=== PATIENT | male | born 1975 | race Caucasian/White ===

== ENCOUNTER 2018-06-17 03:21 | Inpatient (IN) | payer MEDICAID ==
[~2018-06-17] VITALS: Ht 165.1 cm; Wt 81.0 kg
[~2018-06-17 03:21] MED LIST: ACET325T33 PO; FOLI-49 PO; ONDA4TAB8 PO; PANT40TA3 PO; PROP20TA4 PO; THIA100T10 PO
[2018-06-17 03:37] VITALS: Ht 165.1 cm; Wt 81.0 kg
--- NOTE | 2018-06-17 03:38 | ERD ---
ER Documentation Chief Complaint Chief Complaint etoh HPI The patient is a 43-year-old male, presenting to the ER on the street because he has been drinking too much. He is awake, alert, able to answer question, denies any trauma, denies headache, neck pain, chest pain, abdominal pain, vomiting. He is homeless, smokes and drinks, denies illicit drug. He denies suicidal/homicidal ideation. Past medical/surgical history: None ROS All systems reviewed and are negative except as per history of present illness. Medications Home Meds No Active Prescriptions or Reported Meds Allergies Allergies: Coded Allergies: No Known Allergy (Unverified , 01/21/16) PMhx/Soc History of Surgery: No Anesthesia Reaction: No Hx Neurological Disorder: No Hx Respiratory Disorders: No Hx Cardiac Disorders: No Hx Psychiatric Problems: No Hx Miscellaneous Medical Probl: No Hx Alcohol Use: Yes Hx Tobacco Use: Yes Physical Exam Vitals Vital Signs Date Temp Pulse Resp B/P (MAP) Pulse Ox O2 O2 Flow FiO2 Time Delivery Rate 06/17/18 98.4 105 22 136/78 95 Room Air 03:40 (97) 06/17/18 98.4 104 136/78 95 03:37 (97) Physical Exam Const: No acute distress. Head: Atraumatic. Eyes: Normal Conjunctiva. ENT: Normal External Ears, Nose and Mouth. Neck: Full range of motion. No meningismus. Resp: Clear to auscultation bilaterally. Cardio: Regular rate and rhythm. Abd: Soft, non distended, normal bowel sounds, non tender. Skin: No petechiae or rashes. Back: No midline or flank tenderness. Ext: No cyanosis, or edema. Neur: Awake and alert. No focal deficit Psych: intoxicated Procedures/MDM MEDICAL MAKING DECISION: The patient is a 43-year-old male, presenting with acute alcohol abuse, is awake, alert. He will be resting the ER until he kush up to go in the morning The differential diagnoses considered include but are not limited to alcohol intoxication, dehydration, electrolyte imbalance, depression Departure Diagnosis: Primary Impression: Alcohol abuse Comments The patient's blood pressure was elevated (>120/80) but appears stable without evidence of hypertension emergency or urgency. The patient was counseled about the risks of hypertension and urged to pursue outpatient monitoring and therapy within a week with their primary care physician. I have provided a medical screening exam and evaluation. Referral to outpatient behavioral health for follow up is indicated and referrals were provided.] The patient is clinically stable for discharge. I have communicated after-visit instructions and plan to the patient. Because patient has been identified as without residence, the hospital policy and process for discharge requirements have been initiated by appropriate hospital staff. TORIBIO ORDOÑEZ MD Jun 17, 2018 03:38
[2018-06-17] MEDS ORDERED: SOD CHLORIDE 0.9% 1,000 ML IV STA (13:46)
[2018-06-17] MEDS ORDERED: ONDANSETRON 4 MG INJ IV STA (13:46)
[2018-06-17] MEDS ORDERED: LORAZEPAM 2 MG INJ IV ONE (14:00)
[2018-06-17] MEDS: SOD CHLORIDE 0.9% 1,000 ML IV SCH (15:17)
[2018-06-17] MEDS ORDERED: NACL 0.9% 3 ML SYG IV SCH (15:30)
[2018-06-17] MEDS ORDERED: MULTIVITAMINS 10 ML, THIAMINE 100 MG, FOLIC ACID 1 MG, MAGNESIUM SULFATE 2 GM in SOD CH... IV ONE (15:30)
[2018-06-17] MEDS ORDERED: ACETAMINOPHEN 325 MG TAB PO PRN (15:30)
[2018-06-17] MEDS ORDERED: ONDANSETRON 4 MG INJ IV PRN (15:30)
[2018-06-17] MEDS ORDERED: LORAZEPAM 2 MG INJ IV PRN ×2 (15:30)
--- NOTE | 2018-06-17 15:34 | EN ---
Date/Time of Note Date/Time of Note DATE: 06/17/18 TIME: 15:30 ER Progress Note This is a 43-year-old male with a known history of alcohol abuse. He had multiple previous emergency room visits. The patient been seen and evaluated by previous ER physician. He was subsequently waiting to be discharged upon clinical sobriety. However he was seen by the social insurance specialist and multiple nursing staff were concerned as the patient is very unsteady in his gait. I went to the bedside to evaluate the patient. The patient had severe asterixis and an unsteady gait. He had been in the emergency department for 12 hours. There was concern for possible delirium tremors at this time. The patient was tachycardic. At this time IV access was established. Ancillary laboratory work was obtained. The patient has transaminitis. The patient is thrombocytic panic with a platelet count of 15,000. Due to his thrombus cytopenia and history of alcohol abuse I do feel is necessary to obtain a CT scan of the patient's head which showed no intracerebral hemorrhage mass-effect or midline shift. The pat ient was given IV Ativan. He was also given a banana bag folic acid thiamine and multivitamin. I do not feel safe for the patient to be discharged at this time given that high risk of impending delirium tremors. Therefore Dr. Tinajero will be the admitting physician the patient will go to the telemetry service. Constitutional:Well-developed. Disheveled. HEENT:Normocephalic. Nasal septal hematoma. No hemotympanum. Atraumatic.Pupils were equal round reactive to light. Moist mucous membranes.No tonsillar exudates. Neck: No nuchal rigidity. No lymphadenopathy. No posterior cervical spine tenderness or step-offs. Respiratory: Not using accessory muscles of respiration.Lungs were clear to auscultation bilaterally. No rhonchi. No rales. No wheezing. Cardiovascular: Regular rate regular rhythm.No murmurs. No rubs were appreciated.S1, S2 normal. Distal pulses are palpable 2+ bilaterally. GI: Abdomen was soft. Nontender. Non Distended. No pulsatile abdominal masses or bruits. No rebound. No guarding. Bowel sounds were present and normal. Muscle skeletal: Full range of motion of both the upper and lower extremities bilaterally.Normal muscle tone.No assymetrical calf tenderness or swelling. Skin: No petechia, no purpura. No lesions on the palms or the soles of the feet. No maculopapular rash. NEURO: Patient was alert, awake, orientated x3.No facial droop. Unsteady gait. Asterixis.Speech had regular rate and rhythm. No focal neurological deficits. Overall clinical impression: 1. Toxic encephalopathy 2. Alcohol withdrawal AQUILINO DENT MD Jun 17, 2018 15:34
[2018-06-17] MEDS ORDERED: SOD CHLORIDE 0.9% 250 ML IV* ONE (15:46)
--- NOTE | 2018-06-17 15:48 | HP ---
Date/Time of Note Date/Time of Note DATE: 06/17/18 TIME: 15:48 Assessment/Plan VTE Prophylaxis Pharmacological prophylaxis: other Lines/Catheters IV [facility] Peripheral IV Assessment/Plan Hospital Course Patient is a male with past medical history significant for multiple admissions due to alcohol intoxication, cirrhosis, esophageal varices and chronic lower extremity weakness and debility as well as pancytopenia due to al coholism who presents to [facility] after being found intoxicated and on the floor by EMS. Patient presents exact the same as his previous admissions, patient is currently very sleepy but arousable. Patient received multiple doses of Ativan due to witnessed symptoms of DT. Patient currently when aroused does not complain of any acute issues, however when you do ask that he has abdominal pain patient states that he does have some very little abdominal pain. Patient is still markedly intoxicated after a considerable amount in the ED and will be admitted for alcohol withdrawal symptoms. Patient currently denies all symptoms however this is difficult to get a true HPI due to patient being very sleepy due to Ativan. Objective Physical exam General: Patient is laying in bed and answers questions appropriately when awoken Mentation: Patient is lethargic but arousable and mildly oriented Head: Normocephalic atraumatic Eyes: EOMI, pupils reactive to light Neck: Supple, nontender, midline Respiratory: Clear to auscultation bilaterally Cardiovascular: regular rate, no obvious murmurs Gastrointestinal: Minimally tender to palpation, bowel sounds heard. Neurological: Moves all extremities spontaneously Skin: No new skin lesions Assessment and plan Acute alcohol intoxication and withdrawal -Patient has multiple counts at this hospital, this account does not partic ularly show his admission, however patient has been admitted multiple times in the past -Admission for DTs -Ativan as needed -Scheduled Ativan for now, when able to tolerate p.o. we will start Librium -IV fluid with banana bag Pancreatitis -Very mild, patient states he does have abdominal pain -N.p.o. -IV fluid -Patient appears to say yes to any kind of complaint he has, I doubt true acute pancreatitis, elevated lipase is likely secondary to chronic pancreatitis if anything, due to his alcoholism Pancytopenia -Baseline for patient -Based on other count patient has a history of esophageal varices and GI bleed -Patient was seen by hematology last year, it appears that patient has chronic thrombocytopenia and there is usually a drop in platelets after every alcohol binge where he gets admitted. -We will transfuse a unit of platelets due to history of esophageal variceal bleed., no GI bleed at this time Chronic debility and lower extremity weakness -Chronic, likely at baseline, patient not able to ambulate when attempted to be discharged by ED physician, this is baseline for patient -PT OT once patient is less intoxicated Alcoholism -Even after 12 hours in the ED patient's alcohol level is 0.25 alcohol content which is more than 3 times the legal limit. -Managing patient for withdrawal symptoms -Scheduled Ativan -As needed Ativan as well Alcoholic liver cirrhosis history with with grade 3 or 4 esophageal varices -Patient does not appear to be on any medication as he is homeless and noncompliant -We will initiate oral Lasix and spironolactone treatment once patient able to tolerate p.o. -PPI daily -Patient has been admitted multiple times, however is noncompliant with med ications every single time, will discuss with patient if he will even take medications when he is more awake. Disposition -Inpatient for acute alcohol intoxication and DT. Pending 1 unit of platelets. Result Diagram: 06/17/18 1355 06/17/18 1355 Results 24hrs Laboratory Tests Test 06/17/18 13:55 White Blood Count 2.1 L Red Blood Count 4.59 L Hemoglobin 11.4 L Hematocrit 36.0 L Mean Corpuscular Volume 78.4 L Mean Corpuscular Hemoglobin 24.8 L Mean Corpuscular Hemoglobin Concent 31.7 L Red Cell Distribution Width 19.3 H Platelet Count 15 *L Mean Platelet Volume Immature Granulocytes % 0.500 H Neutrophils % Segmented Neutrophils % (Manual) 62 Lymphocytes % Lymphocytes % (Manual) 30 Reactive Lymphocytes % (Manual) 4 H Monocytes % Monocytes % (Manual) 4 Eosinophils % Basophils % Nucleated Red Blood Cells % 1 H Immature Granulocytes # 0.010 Neutrophils # Lymphocytes (Manual) 0.6 L Lymphocytes # Reactive Lymphocytes # 0.0 Monocytes # Monocytes # (Manual) 0.0 L Eosinophils # Basophils # Nucleated Red Blood Cells # Platelet Estimate SIG DECREASED Giant Platelets 3 H Platelet Morphology Comment @See below Poikilocytosis 2+ Anisocytosis 1+ Microcytosis 1+ Sodium Level 143 Potassium Level 3.7 Chloride Level 109 Carbon Dioxide Level 23 Anion Gap 11 Blood Urea Nitrogen 8 Creatinine 0.46 L Est Glomerular Filtrat Rate mL/min > 60 Glucose Level 107 Calcium Level 7.6 L Total Bilirubin 1.4 H Direct Bilirubin 0.00 Indirect Bilirubin 1.4 H Aspartate Amino Transf (AST/SGOT) 273 H Alanine Aminotransferase (ALT/SGPT) 103 H Alkaline Phosphatase 278 H Troponin I < 0.012 Total Protein 8.1 Albumin 3.4 Globulin 4.70 H Albumin/Globulin Ratio 0.72 Lipase 304 H Ethyl Alcohol Level 251.0 H HPI/ROS Admit Date/Time Admit Date/Time PMH/Family/Social Past Medical History Medications Current Medications Multivitamins 10 ml/Thiamine HCl 100 mg/Folic Acid 1 mg/Magnesium Sulfate 2 gm/ Sodium Chloride 1,000 ml @ 500 mls/hr Q2H ONCE IV ; Start 06/17/18 at 15:30; Stop 06/17/18 at 17:29 Ondansetron HCl (Zofran Inj) 4 mg ER BRIDGE PRN IV NAUSEA/VOMITING; Start 06/17/18 at 15:30; Stop 06/18/18 at 15:29 Acetaminophen (Tylenol Tab) 650 mg ER BRIDGE PRN PO .MILD PAIN 1-3 OR TEMP; Start 06/17/18 at 15:30; Stop 06/18/18 at 15:29 Sodium Chloride 1,000 ml @ 100 mls/hr Q10H IV ; Start 06/17/18 at 15:17 IV Flush (NS 3 ml) 3 ml PER PROTOCOL IV ; Start 06/17/18 at 15:30 Lorazepam (Ativan) 0.5 mg Q6H PRN IV .ANXIETY; Start 06/17/18 at 15:30 Multivitamins 10 ml/Thiamine HCl 100 mg/Folic Acid 1 mg/Sodium Chloride 1,011.2 ml @ 125 mls/ hr DAILY@09 IVPB ; Start 06/18/18 at 09:00 Lorazepam (Ativan) 2 mg Q10MIN PRN IV seizure; Start 06/17/18 at 15:30 Morphine Sulfate (morphine) 1 mg Q4H PRN IV SEVERE PAIN LEVEL 7-10; Start at 16:00 Pantoprazole (Protonix Iv) 40 mg DAILY@06 IV ; Start 06/18/18 at 06:00 Lorazepam (Ativan) 1 mg Q6H IV ; Start 06/17/18 at 16:00 Coded Allergies: No Known Allergy (Unverified , 01/21/16) Social History Smoking Status: Current every day smoker Exam/Review of Systems Vital Signs Vitals Vital Signs Date Temp Pulse Resp B/P (MAP) Pulse Ox O2 O2 Flow FiO2 Time Delivery Rate 06/17/18 98 22 102/73 98 Room Air 10:27 (83) 06/17/18 98.4 03:40 FARHAN CORRAL Jun 17, 2018 15:48
[2018-06-17 16:35] VITALS: PULSE 93
[2018-06-17 16:36] VITALS: BP 132/73; PULSE 96; RESP 20
[2018-06-17] MEDS: LORAZEPAM 2 MG INJ IV SCH ×2 (17:55→22:00)
[2018-06-17 20:00] VITALS: BP 134/75; PULSE 104; PULSE 109; RESP 20
[2018-06-17] MEDS ORDERED: CHLORDIAZEPOXIDE 25 MG CAP PO SCH (21:00)
[2018-06-18] VITALS (12 sets, daily range): BP systolic 126–173; BP diastolic 67–80; PULSE 94–114; RESP 17–20
[2018-06-18] MEDS: SOD CHLORIDE 0.9% 1,000 ML IV SCH ×3 (01:22→21:22)
[2018-06-18] MEDS: LORAZEPAM 2 MG INJ IV SCH ×4 (04:00→22:00)
[2018-06-18] MEDS ORDERED: ACETAMINOPHEN 500 MG TAB PO ONE (04:34)
[2018-06-18] MEDS ORDERED: PANTOPRAZOLE 40 MG INJ IV SCH (06:00)
[2018-06-18] MEDS ORDERED: PANTOPRAZOLE (EC) 40 MG TAB PO SCH (06:00)
[2018-06-18] MEDS ORDERED: PHYTONADIONE 10 MG/ML INJ SC ONE (10:00)
[2018-06-18] MEDS: CEFTRIAXONE 1 GM/50 ML (PMX) 50 ML IVPB SCH (10:08)
[2018-06-18] MEDS: MULTIVITAMINS 10 ML, THIAMINE 100 MG, FOLIC ACID 1 MG in SOD CHLORIDE 0.9% 1,000 ML IVPB SCH (10:58)
[2018-06-18] MEDS: PANTOPRAZOLE IV 80 MG in SOD CHLORIDE 0.9% 100 ML IV SCH ×2 (11:00→21:02)
[2018-06-18] MEDS: OCTREOTIDE 1 MG in DEXTROSE 5% 95 ML IV SCH (11:04)
[2018-06-18] MEDS: ONDANSETRON 4 MG INJ IV PRN (12:10)
[2018-06-18] MEDS ORDERED: LABETALOL HCL 20MG INJ IV PRN (12:30)
--- NOTE | 2018-06-18 13:50 | PN ---
Date/Time of Note Date/Time of Note DATE: 06/18/18 TIME: 13:46 Objective Vitals Vital Signs Date Temp Pulse Resp B/P (MAP) Pulse Ox O2 O2 Flow FiO2 Time Delivery Rate 06/18/18 100 12:32 06/18/18 98.6 19 173/72 98 11:44 (105) 06/17/18 Room Air 10:27 Intake and Output 06/17/18 06/17/18 06/18/18 1515:00 23:00 07:00 IntakeIntake Total 20 ml OutputOutput Total 1200 ml BalanceBalance -1180 ml Results Result Diagram: 06/18/18 1124 06/18/18 0520 Medications Medications Current Medications Sodium Chloride 1,000 ml @ 100 mls/hr Q10H IV Last administered on 06/18/18at 04:42; Admin Dose 100 MLS/HR; Start 06/17/18 at 15:17 IV Flush (NS 3 ml) 3 ml PER PROTOCOL IV ; Start 06/17/18 at 15:30 Lorazepam (Ativan) 0.5 mg Q6H PRN IV .ANXIETY; Start 06/17/18 at 15:30 Multivitamins 10 ml/Thiamine HCl 100 mg/Folic Acid 1 mg/Sodium Chloride 1,011.2 ml @ 125 mls/ hr DAILY@09 IVPB Last administered on 06/18/18at 10:58; Admin Dose 125 MLS/HR; Start 06/18/18 at 09:00 Lorazepam (Ativan) 2 mg Q10MIN PRN IV seizure; Start 06/17/18 at 15:30 Morphine Sulfate (morphine) 1 mg Q4H PRN IV SEVERE PAIN LEVEL 7-10; Start 06/17/18 at 16:00 Lorazepam (Ativan) 1 mg Q6H IV Last administered on 06/18/18at 13:21; Admin Dose 1 MG; Start 06/17/18 at 16:00 Octreotide Acetate 1 mg/ Dextrose 100 ml @ 5 mls/hr Q20H IV Last administered on 06/18/18at 11:04; Admin Dose 5 MLS/HR; Start 06/18/18 at 09:30 Pantoprazole 80 mg/Sodium Chloride 100 ml @ 10 mls/hr Q10H IV Last administered on 06/18/18at 11:00; Admin Dose 10 MLS/HR; Start 06/18/18 at 09:30 Ceftriaxone Sodium 50 ml @ 100 mls/hr Q24H IVPB Last administered on 06/18/18at 10:08; Admin Dose 100 MLS/HR; Start 06/18/18 at 09:30 Ondansetron HCl (Zofran Inj) 4 mg Q6H PRN IV NAUSEA AND/OR VOMITING Last administered on 06/18/18at 12:10; Admin Dose 4 MG; Start 06/18/18 at 11:00 Labetalol HCl (Labetalol) 10 mg Q4H PRN IV SBP > 160 Last administered on 06/18/18at 12:26; Admin Dose 10 MG; Start 06/18/18 at 12:30 VTE Prophylaxis Risk score (from Ns)>0 risk: 2 SCD applied (from [facility]): Yes Lines/Catheters IV Catheter Type: Bishop in Place: No Assessment/Plan Hospital Course Subjective Patient did well overnight, however in the a.m., patient had intense vomiting and had hematemesis. Patient still has abdominal pain. Objective Physical exam General: Patient is laying in bed and answers questions appropriately in Chinese Mentation: Patient is alert and oriented Head: Normocephalic atraumatic Eyes: EOMI, pupils reactive to light Neck: Supple, nontender, midline Respiratory: Clear to auscultation bilaterally Cardiovascular: regular rate, no obvious murmurs Gastrointestinal: Moderately tender to palpation, bowel sounds heard. Neurological: Moves all extremities spontaneously Skin: No new skin lesions Assessment and plan Hematemesis -Patient has a history of varices due to cirrhosis -GI consulted -Octreotide and ceftriaxone as prophylaxis -PPI -Hemoglobin will be monitored, currently stable -Platelets, FFP, vitamin K x1 Acute alcohol intoxication and withdrawal -Patient has multiple counts at this hospital, this account does not particularly show his admission, however patient has been admitted multiple times in the past on a separate account with a different medical record number. Please refer to other accounts for more information -Admission for DTs -Ativan as needed -Scheduled Ativan for now, when able to tolerate p.o. we will start Librium -IV fluid with banana bag Pancreatitis -Very mild, patient states he does have abdominal pain -N.p.o. -IV fluid -Patient appears to say yes to any kind of complaint he has, I doubt true acute pancreatitis, elevated lipase is likely secondary to chronic pancreatitis if anything, due to his alcoholism -CT abdomen pelvis does not show any abnormality with the pancreas Pancytopenia -Baseline for patient -Based on other count patient has a history of esophageal varices and GI bleed -Patient was seen by hematology last year, it appears that patient has chronic thrombocytopenia and there is usually a drop in platelets after every alcohol binge where he gets admitted. -We will transfuse a unit of platelets due to history of esophageal variceal bleed., no GI bleed at this time Chronic debility and lower extremity weakness -Chronic, likely at baseline, patient not able to ambulate when attempted to be discharged by ED physician, this is baseline for patient -PT OT once patient is less intoxicated Alcoholism -Even after 12 hours in the ED patient's alcohol level is 0.25 alcohol content which is more than 3 times the legal limit. -Managing patient for withdrawal symptoms -Scheduled Ativan -As needed Ativan as well Alcoholic liver cirrhosis history with with grade 3 or 4 esophageal varices -Patient does not appear to be on any medication as he is homeless and noncompliant -We will initiate oral Lasix and spironolactone treatment once patient able to tolerate p.o. -PPI -Patient has been admitted multiple times, however is noncompliant with medications every single time Disposition -GI consultation for hematemesis, n.p.o., IV fluid, scheduled Ativan for DTs prophylaxis. FARHAN CORRAL Jun 18, 2018 13:50
--- NOTE | 2018-06-18 15:23 | CONS ---
Assessment/Plan Assessment/Plan Hospital Course (Demo Recall) Summary Assessment and Plan: Assessment: Hematemesis -PPI gtt/Octreotide gtt ETOH withdrawal Elevated LFTs with direct hyperbilirubinemia Alcoholic liver cirrhosis Pancytopenia Elevated lipase Plan: Continue PPI/Octreotide given elevated lipase and elevated direct hyperbilirubinemia- likely 2/2 to ETOH abuse and advance liver disease- however CBD obstruction should be ruled out. I will order MRCP Pt will require EGD in near future- likely tomorrow pending Plt/INR count- additionally will assess MRCP , if patient requires ERCP will complete both procedures together. Check labs in am. Vitamin K x2 more doses Monitor for overt signs of GI bleed Currently receiving Plt transfusion on number 2 of 2 ordered. Patient seen in collaboration with Dr. Rowe CC: SOUMYA ROWE ; Consultation Date/Type/Reason Admit Date/Time Date of Consultation: Jun 18, 2018 Type of Consult GI Reason for Consultation Hematemesis Date/Time of Note DATE: 06/18/18 TIME: 14:11 Hx of Present Illness This is 43 year old male with multiple visits to ED room as well as admissions, who has a known history of alcoholic liver cirrhosis with severe alcohol abuse. He was brought into the ED for alcohol intoxication admitted for acute alcoholic intoxication and withdrawal, pancreatitis. Labs drawn today show pancytopenia. CT abdomen/pelvis without contrast revealed liver cirrhosis, splenomegaly with varices no evidence of diverticulitis or appendicitis. Patient had x1 episode of hematemesis this morning. GI was consulted for further work-up. Hemoglobin this morning at 5:20 was 10.3 reevaluated at 11:24 hgb is the same at 10.4 platelet count is currently 13 he is on his second unit of plateletpheresis. INR is 1.64 vitamin K x1 has been given thus far. Patient with elevated LFTs and direct hyperbilirubinemia, as well as, elevated lipase. We will plan to rule out common bile duct obstruction with MRCP today. Will allow patient to stabili ze and plan for EGD near future. If MRCP is positive we will do both EGD/ERCP together. Patient is currently on PPI drip and octreotide. Review of Systems: A 12 system, review was conducted and is negative except as noted in the HPI or here. Past Medical History Home Meds No Active Prescriptions or Reported Meds Medications Current Medications Sodium Chloride 1,000 ml @ 100 mls/hr Q10H IV Last administered on 06/18/18 04:42; Admin Dose 100 MLS/HR; Start 06/17/18 at 15:17 IV Flush (NS 3 ml) 3 ml PER PROTOCOL IV ; Start 06/17/18 at 15:30 Lorazepam (Ativan) 0.5 mg Q6H PRN IV .ANXIETY; Start 06/17/18 at 15:30 Multivitamins 10 ml/Thiamine HCl 100 mg/Folic Acid 1 mg/Sodium Chloride 1,011.2 ml @ 125 mls/ hr DAILY@09 IVPB Last administered on 06/18/18 10:58; Admin Dose 125 MLS/HR; Start 06/18/18 at 09:00 Lorazepam (Ativan) 2 mg Q10MIN PRN IV seizure; Start 06/17/18 at 15:30 Morphine Sulfate (morphine) 1 mg Q4H PRN IV SEVERE PAIN LEVEL 7-10; Start 06/17/18 at 16:00 Lorazepam (Ativan) 1 mg Q6H IV Last administered on 06/18/18 13:21; Admin Dose 1 MG; Start 06/17/18 at 16:00 Octreotide Acetate 1 mg/ Dextrose 100 ml @ 5 mls/hr Q20H IV Last administered on 06/18/18 11:04; Admin Dose 5 MLS/HR; Start 06/18/18 at 09:30 Pantoprazole 80 mg/Sodium Chloride 100 ml @ 10 mls/hr Q10H IV Last administered on 06/18/18 11:00; Admin Dose 10 MLS/HR; Start 06/18/18 at 09:30 Ceftriaxone Sodium 50 ml @ 100 mls/hr Q24H IVPB Last administered on 06/18/18 10:08; Admin Dose 100 MLS/HR; Start 06/18/18 at 09:30 Ondansetron HCl (Zofran Inj) 4 mg Q6H PRN IV NAUSEA AND/OR VOMITING Last administered on 06/18/18 12:10; Admin Dose 4 MG; Start 06/18/18 at 11:00 Labetalol HCl (Labetalol) 10 mg Q4H PRN IV SBP > 160 Last administered on 06/18/18 12:26; Admin Dose 10 MG; Start 06/18/18 at 12:30 Allergies: Coded Allergies: No Known Allergy (Unverified , 01/21/16) Social History Smoking Status: Current every day smoker Exam/Review of Systems Exam Vitals Vital Signs Date Temp Pulse Resp B/P (MAP) Pulse Ox O2 O2 Flow FiO2 Time Delivery Rate 06/18/18 100 12:32 06/18/18 98.6 19 173/72 98 11:44 (105) 06/17/18 Room Air 10:27 Intake and Output 06/17/18 06/17/18 06/18/18 1515:00 23:00 07:00 IntakeIntake Total 20 ml OutputOutput Total 1200 ml BalanceBalance -1180 ml Exam PHYSICAL EXAMINATION: GENERAL: Alert & oriented x 3, disheveled SKIN: No lesions EYES: Pupils equal reactive to light and accommodation, no discharge. EARS/NOSE AND THROAT: Ears normal, nose normal NECK: Supple, no masses CHEST: Inspection within normal limits. CARDIOVASCULAR: Heart: Regular rate and rhythm RESPIRATORY: Lungs clear to auscultation and percussion, no wheezing, no rubs GASTROINTESTINAL AND LIVER: Abdomen: Soft, non tenderness, slightly distended, no hernias, no masses, no organomegaly, no guarding, no rebound tenderness, normoactive bowel sounds. Rectal: Deferred. EXTREMITIES: No cyanosis, clubbing or edema. Results Result Diagram: 06/18/18 1124 06/18/18 0520 Results 24hrs Laboratory Tests Test 06/17/18 17:49 06/18/18 05:20 06/18/18 11:24 Platelet Count 12 *L 13 *L Prothrombin Time 19.5 H Prothrombin Time Ratio 1.5 INR International Normalized Ratio 1.64 Activated Partial Thromboplast Time 41.5 H Thrombin Time 19.7 H White Blood Count 1.6 #L Red Blood Count 4.08 L Hemoglobin 10.3 L 10.4 L Hematocrit 33.2 L 33.9 L Mean Corpuscular Volume 81.4 L Mean Corpuscular Hemoglobin 25.2 L Mean Corpuscular Hemoglobin Concent 31.0 L Red Cell Distribution Width 19.1 H Mean Platelet Volume Immature Granulocytes % 0.600 H Neutrophils % Segmented Neutrophils % (Manual) 74 Band Neutrophils % (Manual) 3 Lymphocytes % Lymphocytes % (Manual) 17 Monocytes % Monocytes % (Manual) 2 Eosinophils % Eosinophils % (Manual) 4 Basophils % Nucleated Red Blood Cells % 0.0 Immature Granulocytes # 0.010 Neutrophils # Neutrophils # (Manual) 1.2 L Band Neutrophils # 0.0 Lymphocytes (Manual) 0.2 L Lymphocytes # Monocytes # Monocytes # (Manual) 0.0 L Eosinophils # Basophils # Nucleated Red Blood Cells # Platelet Estimate SIG DECREASED Giant Platelets 3 H Poikilocytosis 3+ Anisocytosis 1+ Ovalocytes 1+ Sodium Level 143 Potassium Level 3.8 Chloride Level 108 Carbon Dioxide Level 22 Anion Gap 13 Blood Urea Nitrogen 8 Creatinine 0.51 L Est Glomerular Filtrat Rate mL/min > 60 Glucose Level 77 Hemoglobin A1c 4.9 Calcium Level 7.6 L Magnesium Level 1.9 Total Bilirubin 2.3 H Direct Bilirubin 0.60 #H Indirect Bilirubin 1.7 H Aspartate Amino Transf (AST/SGOT) 230 H Alanine Aminotransferase (ALT/SGPT) 111 H Alkaline Phosphatase 258 H Total Protein 7.9 Albumin 3.3 Globulin 4.60 H Albumin/Globulin Ratio 0.71 Medications Medication Current Medications Sodium Chloride 1,000 ml @ 100 mls/hr Q10H IV Last administered on 06/18/18at 04:42; Admin Dose 100 MLS/HR; Start 06/17/18 at 15:17 IV Flush (NS 3 ml) 3 ml PER PROTOCOL IV ; Start 06/17/18 at 15:30 Lorazepam (Ativan) 0.5 mg Q6H PRN IV .ANXIETY; Start 06/17/18 at 15:30 Multivitamins 10 ml/Thiamine HCl 100 mg/Folic Acid 1 mg/Sodium Chloride 1,011.2 ml @ 125 mls/ hr DAILY@09 IVPB Last administered on 06/18/18at 10:58; Admin Dose 125 MLS/HR; Start 06/18/18 at 09:00 Lorazepam (Ativan) 2 mg Q10MIN PRN IV seizure; Start 06/17/18 at 15:30 Morphine Sulfate (morphine) 1 mg Q4H PRN IV SEVERE PAIN LEVEL 7-10; Start 06/17/18 at 16:00 Lorazepam (Ativan) 1 mg Q6H IV Last administered on 06/18/18at 13:21; Admin Dose 1 MG; Start 06/17/18 at 16:00 Octreotide Acetate 1 mg/ Dextrose 100 ml @ 5 mls/hr Q20H IV Last administered on 3/3/19at 11:04; Admin Dose 5 MLS/HR; Start 06/18/18 at 09:30 Pantoprazole 80 mg/Sodium Chloride 100 ml @ 10 mls/hr Q10H IV Last administered on 06/18/18 11:00; Admin Dose 10 MLS/HR; Start 06/18/18 at 09:30 Ceftriaxone Sodium 50 ml @ 100 mls/hr Q24H IVPB Last administered on 06/18/18 10:08; Admin Dose 100 MLS/HR; Start 06/18/18 at 09:30 Ondansetron HCl (Zofran Inj) 4 mg Q6H PRN IV NAUSEA AND/OR VOMITING Last administered on 06/18/18 12:10; Admin Dose 4 MG; Start 06/18/18 at 11:00 Labetalol HCl (Labetalol) 10 mg Q4H PRN IV SBP > 160 Last administered on 06/18/18 12:26; Admin Dose 10 MG; Start 06/18/18 at 12:30 MANNY HURT Jun 18, 2018 14:22
[2018-06-19] VITALS (13 sets, daily range): BP systolic 127–143; BP diastolic 65–76; PULSE 74–95; RESP 17–20
[2018-06-19] MEDS: ONDANSETRON 4 MG INJ IV PRN ×2 (01:42→10:29)
[2018-06-19] MEDS: LORAZEPAM 2 MG INJ IV SCH ×4 (04:23→22:02)
[2018-06-19] MEDS: OCTREOTIDE 1 MG in DEXTROSE 5% 95 ML IV SCH (05:41)
[2018-06-19] MEDS: PANTOPRAZOLE IV 80 MG in SOD CHLORIDE 0.9% 100 ML IV SCH ×2 (05:44→16:12)
[2018-06-19] MEDS: SOD CHLORIDE 0.9% 1,000 ML IV SCH ×2 (08:25→16:28)
[2018-06-19] MEDS: MULTIVITAMINS 10 ML, THIAMINE 100 MG, FOLIC ACID 1 MG in SOD CHLORIDE 0.9% 1,000 ML IVPB SCH (08:25)
[2018-06-19] MEDS: PHYTONADIONE 10 MG/ML INJ SC SCH (08:26)
[2018-06-19] MEDS: CEFTRIAXONE 1 GM/50 ML (PMX) 50 ML IVPB SCH (09:46)
--- NOTE | 2018-06-19 09:58 | PN ---
Date/Time of Note Date/Time of Note DATE: 06/19/18 TIME: 09:58 Assessment/Plan VTE Prophylaxis Risk score (from Ns)>0 risk: 2 SCD applied (from Ns): Yes Pharmacological prophylaxis: NA/contraindicated Pharm contraindication: thrombocytopenia Lines/Catheters IV [facility] Type (from [facility] Peripheral IV Urinary Cath still in place: No Assessment/Plan Assessment/Plan 1. Acute alcohol intoxication and withdrawal - Will continue monitoring for DTs - Ativan on board and once tolerating PO intake will transition to Librium taper - IVF on board 2. Acute pancreatitis - CT abd does not show pancreas well. Remains NPO and will continue monitoring for improvement in abdominal pain 3. Pancytopenia - Baseline in setting of liver cirrhosis - seen by hematology last year and appears that patient has chronic thrombocytopenia with drop in platelets after every alcohol binge where he gets admitted. - no active bleeding so will hold off on transfusions at this time. If actively bleeding with plt <50K will transfuse. 4. Chronic debility and lower extremity weakness - Chronic, likely at baseline, patient not able to ambulate when attempted to be discharged by ED physician, this is baseline for patient - PT/OT when more stable 5. Alcohol abuse - monitor for DTs - Ativan on board 6. Acute GI bleed - GI on board and will plan for EGD when plts more stable 7. Alcoholic liver cirrhosis with h/o grade 3 or 4 esophageal varices - Patient does not appear to be on any medication as he is homeless and noncompliant - We will initiate oral Lasix and spironolactone treatment once patient able to tolerate p.o. - PPI daily - Patient is noncompliant with medications and will need further counseling regarding compliance when feeling better 8. Disposition - Continue monitoring for DTs. Per GI, once plt stable, will proceed with EGD Result Diagram: 06/19/1852006/19/18520 Results 24hrs Laboratory Tests Test 06/18/18 11:24 06/18/18 18:28 06/19/18 00:26 06/19/18 05:21 Hemoglobin 10.4 L 9.8 L 9.7 L 9.7 L Hematocrit 33.9 L 31.5 L 31.6 L 31.3 L White Blood Count 1.7 L Red Blood Count 3.81 L Mean Corpuscular 82.2 Volume Mean Corpuscular 25.5 L Hemoglobin Mean Corpuscular 31.0 L Hemoglobin Concent Red Cell Distribution 19.1 H Width Platelet Count 19 #*L Mean Platelet Volume Immature Granulocytes 0.600 H % Neutrophils % Segmented Neutrophils 74 % (Manual) Band Neutrophils % 3 (Manual) Lymphocytes % Lymphocytes % 13 L (Manual) Monocytes % Monocytes % (Manual) 7 Eosinophils % Eosinophils % 2 (Manual) Basophils % Basophils % (Manual) 1 Nucleated Red Blood 1 H Cells % Immature Granulocytes 0.010 # Neutrophils # Neutrophils # 1.3 L (Manual) Band Neutrophils # 0.0 Lymphocytes (Manual) 0.2 L Lymphocytes # Monocytes # Monocytes # (Manual) 0.1 L Eosinophils # Basophils # Basophils # (Manual) 0.0 Nucleated Red Blood Cells # Platelet Estimate SIG DECREASED Giant Platelets 3 H Polychromasia 1+ Hypochromasia 1+ Anisocytosis 1+ Prothrombin Time 18.4 H Prothrombin Time 1.4 Ratio INR International 1.52 Normalized Ratio Sodium Level 140 Potassium Level 3.6 Chloride Level 104 Carbon Dioxide Level 26 Anion Gap 10 Blood Urea Nitrogen 11 Creatinine 0.56 L Est Glomerular > 60 Filtrat Rate mL/min Glucose Level 100 Calcium Level 8.0 L Phosphorus Level 3.4 Magnesium Level 1.9 Total Bilirubin 2.5 H Direct Bilirubin 0.60 H Indirect Bilirubin 1.9 H Aspartate Amino 170 H Transf (AST/SGOT) Alanine 91 H Aminotransferase (ALT /SGPT) Alkaline Phosphatase 212 H Total Protein 7.6 Albumin 3.3 Hepatitis B Surface NEGATIVE Antigen Hepatitis B Core NEGATIVE Total Antibody Hepatitis C Antibody NEGATIVE Subjective 24 Hr Interval Summary Free Text/Dictation Patient not feeling well and complaining of nausea without vomiting. denies any tremors. Exam/Review of Systems Exam Vitals Vital Signs Date Temp Pulse Resp B/P (MAP) Pulse Ox O2 O2 Flow FiO2 Time Delivery Rate 06/19/18 84 08:01 06/19/18 98.9 20 142/73 97 07:34 (96) 06/17/18 Room Air 10:27 Intake and Output 06/18/18 06/18/18 06/19/18 1515:00 23:00 07:00 IntakeIntake Total 0 ml 0 ml OutputOutput Total 1300 ml 500 ml BalanceBalance -1300 ml -500 ml Exam General: Patient is laying in bed. mild distress secondary to nausea Neck: Supple Respiratory: Clear to auscultation bilaterally. no wheezing Cardiovascular: regular rate and rhythm, no obvious murmurs Gastrointestinal: soft, Moderately tender to palpation, bowel sounds heard. Neurological: Moves all extremities spontaneously Skin: No new skin lesions Results Results 24hrs Laboratory Tests Test 06/18/18 11:24 06/18/18 18:28 06/19/18 00:26 06/19/18 05:21 Hemoglobin 10.4 L 9.8 L 9.7 L 9.7 L Hematocrit 33.9 L 31.5 L 31.6 L 31.3 L White Blood Count 1.7 L Red Blood Count 3.81 L Mean Corpuscular 82.2 Volume Mean Corpuscular 25.5 L Hemoglobin Mean Corpuscular 31.0 L Hemoglobin Concent Red Cell Distribution 19.1 H Width Platelet Count 19 #*L Mean Platelet Volume Immature Granulocytes 0.600 H % Neutrophils % Segmented Neutrophils 74 % (Manual) Band Neutrophils % 3 (Manual) Lymphocytes % Lymphocytes % 13 L (Manual) Monocytes % Monocytes % (Manual) 7 Eosinophils % Eosinophils % 2 (Manual) Basophils % Basophils % (Manual) 1 Nucleated Red Blood 1 H Cells % Immature Granulocytes 0.010 # Neutrophils # Neutrophils # 1.3 L (Manual) Band Neutrophils # 0.0 Lymphocytes (Manual) 0.2 L Lymphocytes # Monocytes # Monocytes # (Manual) 0.1 L Eosinophils # Basophils # Basophils # (Manual) 0.0 Nucleated Red Blood Cells # Platelet Estimate SIG DECREASED Giant Platelets 3 H Polychromasia 1+ Hypochromasia 1+ Anisocytosis 1+ Prothrombin Time 18.4 H Prothrombin Time 1.4 Ratio INR International 1.52 Normalized Ratio Sodium Level 140 Potassium Level 3.6 Chloride Level 104 Carbon Dioxide Level 26 Anion Gap 10 Blood Urea Nitrogen 11 Creatinine 0.56 L Est Glomerular > 60 Filtrat Rate mL/min Glucose Level 100 Calcium Level 8.0 L Phosphorus Level 3.4 Magnesium Level 1.9 Total Bilirubin 2.5 H Direct Bilirubin 0.60 H Indirect Bilirubin 1.9 H Aspartate Amino 170 H Transf (AST/SGOT) Alanine 91 H Aminotransferase (ALT /SGPT) Alkaline Phosphatase 212 H Total Protein 7.6 Albumin 3.3 Hepatitis B Surface NEGATIVE Antigen Hepatitis B Core NEGATIVE Total Antibody Hepatitis C Antibody NEGATIVE Medications Medication Current Medications Sodium Chloride 1,000 ml @ 100 mls/hr Q10H IV Last administered on 06/19/18at 08:25; Admin Dose 100 MLS/HR; Start 06/17/18 at 15:17 IV Flush (NS 3 ml) 3 ml PER PROTOCOL IV ; Start 06/17/18 at 15:30 Lorazepam (Ativan) 0.5 mg Q6H PRN IV .ANXIETY; Start 06/17/18 at 15:30 Multivitamins 10 ml/Thiamine HCl 100 mg/Folic Acid 1 mg/Sodium Chloride 1,011.2 ml @ 125 mls/ hr DAILY@09 IVPB Last administered on 06/19/18 08:25; Admin Dose 125 MLS/HR; Start 06/18/18 at 09:00 Lorazepam (Ativan) 2 mg Q10MIN PRN IV seizure; Start 06/17/18 at 15:30 Morphine Sulfate (morphine) 1 mg Q4H PRN IV SEVERE PAIN LEVEL 7-10; Start 06/17/18 at 16:00 Lorazepam (Ativan) 1 mg Q6H IV Last administered on 06/19/18 09:44; Admin Dose 1 MG; Start 06/17/18 at 16:00 Octreotide Acetate 1 mg/ Dextrose 100 ml @ 5 mls/hr Q20H IV Last administered on 06/19/18 05:41; Admin Dose 5 MLS/HR; Start 06/18/18 at 09:30 Pantoprazole 80 mg/Sodium Chloride 100 ml @ 10 mls/hr Q10H IV Last administered on 06/19/18 05:44; Admin Dose 10 MLS/HR; Start 06/18/18 at 09:30 Ceftriaxone Sodium 50 ml @ 100 mls/hr Q24H IVPB Last administered on 06/19/18 09:46; Admin Dose 100 MLS/HR; Start 06/18/18 at 09:30 Ondansetron HCl (Zofran Inj) 4 mg Q6H PRN IV NAUSEA AND/OR VOMITING Last administered on 06/19/18 01:42; Admin Dose 4 MG; Start 06/18/18 at 11:00 Labetalol HCl (Labetalol) 10 mg Q4H PRN IV SBP > 160 Last administered on 06/18/18 12:26; Admin Dose 10 MG; Start 06/18/18 at 12:30 Phytonadione (Vitamin K) 10 mg DAILY SC Last administered on 3/4/19at 08:26; Admin Dose 10 MG; Start 06/19/18 at 09:00; Stop 06/20/18 at 09:01 LAVERN [place] MD Jun 19, 2018 09:58
--- NOTE | 2018-06-19 12:39 | PN ---
Date/Time of Note Date/Time of Note DATE: 06/19/18 TIME: 12:28 Assessment/Plan VTE Prophylaxis Risk score (from Ns)>0 risk: 2 SCD applied (from Nsg): Yes Pharmacological prophylaxis: other (scds) Lines/Catheters IV Catheter Type (from Nrs): Peripheral IV Urinary Cath still in place: No Assessment/Plan Hospital Course Summary Assessment and Plan: Assessment: Hematemesis -PPI gtt/Octreotide gtt ETOH withdrawal Elevated LFTs with direct hyperbilirubinemia (2/2 to progressive liver disease) -MRCP No evidence of biliary duct obstruction Alcoholic liver cirrhosis Pancytopenia- likely 2/2 to bone arrow suppression r/t excessive ETOH abuse Elevated lipase -MRCP- pancreas not well visualized Plan: Continue PPI/Octreotide- continue for now Monitor for overt signs of GI bleed Plt too low to proceed with EGD- pt at high risk for bleeding, plt need to be above 50 for EGD- plan to transfuse 2 units of plt tonight- recheck cbc in am Consider Hematology consult Patient seen in collaboration with Dr. Chang Subjective: Course reviewed with nursing staff Patient interviewed and examined All labs, imaging and other results reviewed The patient feels alittle better today, no c/o n/.v does c/o abd pain 6/10 with deep palpation PHYSICAL EXAMINATION: GENERAL: Alert & oriented x 3, disheveled SKIN: No lesions EYES: Pupils equal reactive to light and accommodation, no discharge. EARS/NOSE AND THROAT: Ears normal, nose normal NECK: Supple, no masses CHEST: Inspection within normal limits. CARDIOVASCULAR: Heart: Regular rate and rhythm RESPIRATORY: Lungs clear to auscultation and percussion, no wheezing, no rubs GASTROINTESTINAL AND LIVER: Abdomen: Soft, upper abd tenderness, slightly distended, no hernias, no masses, no organomegaly, no guarding, no rebound tenderness, normoactive bowel sounds. Rectal: Deferred. EXTREMITIES: No cyanosis, clubbing or edema. Result Diagram: 06/19/1852006/19/18520 Results 24hrs Laboratory Tests Test 06/18/18 18:28 06/19/18 00:26 06/19/18 05:21 Hemoglobin 9.8 L 9.7 L 9.7 L Hematocrit 31.5 L 31.6 L 31.3 L White Blood Count 1.7 L Red Blood Count 3.81 L Mean Corpuscular Volume 82.2 Mean Corpuscular Hemoglobin 25.5 L Mean Corpuscular Hemoglobin Concent 31.0 L Red Cell Distribution Width 19.1 H Platelet Count 19 #*L Mean Platelet Volume Immature Granulocytes % 0.600 H Neutrophils % Segmented Neutrophils % (Manual) 74 Band Neutrophils % (Manual) 3 Lymphocytes % Lymphocytes % (Manual) 13 L Monocytes % Monocytes % (Manual) 7 Eosinophils % Eosinophils % (Manual) 2 Basophils % Basophils % (Manual) 1 Nucleated Red Blood Cells % 1 H Immature Granulocytes # 0.010 Neutrophils # Neutrophils # (Manual) 1.3 L Band Neutrophils # 0.0 Lymphocytes (Manual) 0.2 L Lymphocytes # Monocytes # Monocytes # (Manual) 0.1 L Eosinophils # Basophils # Basophils # (Manual) 0.0 Nucleated Red Blood Cells # Platelet Estimate SIG DECREASED Giant Platelets 3 H Polychromasia 1+ Hypochromasia 1+ Anisocytosis 1+ Prothrombin Time 18.4 H Prothrombin Time Ratio 1.4 INR International Normalized Ratio 1.52 Sodium Level 140 Potassium Level 3.6 Chloride Level 104 Carbon Dioxide Level 26 Anion Gap 10 Blood Urea Nitrogen 11 Creatinine 0.56 L Est Glomerular Filtrat Rate mL/min > 60 Glucose Level 100 Calcium Level 8.0 L Phosphorus Level 3.4 Magnesium Level 1.9 Total Bilirubin 2.5 H Direct Bilirubin 0.60 H Indirect Bilirubin 1.9 H Aspartate Amino Transf (AST/SGOT) 170 H Alanine Aminotransferase (ALT/SGPT) 91 H Alkaline Phosphatase 212 H Total Protein 7.6 Albumin 3.3 Hepatitis B Surface Antigen NEGATIVE Hepatitis B Core Total Antibody NEGATIVE Hepatitis C Antibody NEGATIVE Exam/Review of Systems Exam Vitals Vital Signs Date Temp Pulse Resp B/P (MAP) Pulse Ox O2 O2 Flow FiO2 Time Delivery Rate 06/19/18 97.9 85 18 133/76 97 11:42 (95) 06/17/18 Room Air 10:27 Intake and Output 06/18/18 06/18/18 06/19/18 1515:00 23:00 07:00 IntakeIntake Total 0 ml 0 ml OutputOutput Total 1300 ml 500 ml BalanceBalance -1300 ml -500 ml Results Results 24hrs Laboratory Tests Test 06/18/18 18:28 06/19/18 00:26 06/19/18 05:21 Hemoglobin 9.8 L 9.7 L 9.7 L Hematocrit 31.5 L 31.6 L 31.3 L White Blood Count 1.7 L Red Blood Count 3.81 L Mean Corpuscular Volume 82.2 Mean Corpuscular Hemoglobin 25.5 L Mean Corpuscular Hemoglobin Concent 31.0 L Red Cell Distribution Width 19.1 H Platelet Count 19 #*L Mean Platelet Volume Immature Granulocytes % 0.600 H Neutrophils % Segmented Neutrophils % (Manual) 74 Band Neutrophils % (Manual) 3 Lymphocytes % Lymphocytes % (Manual) 13 L Monocytes % Monocytes % (Manual) 7 Eosinophils % Eosinophils % (Manual) 2 Basophils % Basophils % (Manual) 1 Nucleated Red Blood Cells % 1 H Immature Granulocytes # 0.010 Neutrophils # Neutrophils # (Manual) 1.3 L Band Neutrophils # 0.0 Lymphocytes (Manual) 0.2 L Lymphocytes # Monocytes # Monocytes # (Manual) 0.1 L Eosinophils # Basophils # Basophils # (Manual) 0.0 Nucleated Red Blood Cells # Platelet Estimate SIG DECREASED Giant Platelets 3 H Polychromasia 1+ Hypochromasia 1+ Anisocytosis 1+ Prothrombin Time 18.4 H Prothrombin Time Ratio 1.4 INR International Normalized Ratio 1.52 Sodium Level 140 Potassium Level 3.6 Chloride Level 104 Carbon Dioxide Level 26 Anion Gap 10 Blood Urea Nitrogen 11 Creatinine 0.56 L Est Glomerular Filtrat Rate mL/min > 60 Glucose Level 100 Calcium Level 8.0 L Phosphorus Level 3.4 Magnesium Level 1.9 Total Bilirubin 2.5 H Direct Bilirubin 0.60 H Indirect Bilirubin 1.9 H Aspartate Amino Transf (AST/SGOT) 170 H Alanine Aminotransferase (ALT/SGPT) 91 H Alkaline Phosphatase 212 H Total Protein 7.6 Albumin 3.3 Hepatitis B Surface Antigen NEGATIVE Hepatitis B Core Total Antibody NEGATIVE Hepatitis C Antibody NEGATIVE Medications Medication Current Medications Sodium Chloride 1,000 ml @ 100 mls/hr Q10H IV Last administered on 06/19/18at 08:25; Admin Dose 100 MLS/HR; Start 06/17/18 at 15:17 IV Flush (NS 3 ml) 3 ml PER PROTOCOL IV ; Start 06/17/18 at 15:30 Lorazepam (Ativan) 0.5 mg Q6H PRN IV .ANXIETY; Start 06/17/18 at 15:30 Multivitamins 10 ml/Thiamine HCl 100 mg/Folic Acid 1 mg/Sodium Chloride 1,011.2 ml @ 125 mls/ hr DAILY@09 IVPB Last administered on 06/19/18 08:25; Admin Dose 125 MLS/HR; Start 06/18/18 at 09:00 Lorazepam (Ativan) 2 mg Q10MIN PRN IV seizure; Start 06/17/18 at 15:30 Morphine Sulfate (morphine) 1 mg Q4H PRN IV SEVERE PAIN LEVEL 7-10; Start 06/17/18 at 16:00 Lorazepam (Ativan) 1 mg Q6H IV Last administered on 06/19/18 09:44; Admin Dose 1 MG; Start 06/17/18 at 16:00 Octreotide Acetate 1 mg/ Dextrose 100 ml @ 5 mls/hr Q20H IV Last administered on 06/19/18 05:41; Admin Dose 5 MLS/HR; Start 06/18/18 at 09:30 Pantoprazole 80 mg/Sodium Chloride 100 ml @ 10 mls/hr Q10H IV Last administered on 06/19/18 05:44; Admin Dose 10 MLS/HR; Start 06/18/18 at 09:30 Ceftriaxone Sodium 50 ml @ 100 mls/hr Q24H IVPB Last administered on 06/19/18 09:46; Admin Dose 100 MLS/HR; Start 06/18/18 at 09:30 Ondansetron HCl (Zofran Inj) 4 mg Q6H PRN IV NAUSEA AND/OR VOMITING Last administered on 06/19/18 10:29; Admin Dose 4 MG; Start 06/18/18 at 11:00 Labetalol HCl (Labetalol) 10 mg Q4H PRN IV SBP > 160 Last administered on 06/18/18 12:26; Admin Dose 10 MG; Start 06/18/18 at 12:30 Phytonadione (Vitamin K) 10 mg DAILY SC Last administered on 06/19/18 08:26; Admin Dose 10 MG; Start 06/19/18 at 09:00; Stop 06/20/18 at 09:01 MANNY HURT Jun 19, 2018 12:39
[2018-06-19] MEDS: ACETAMINOPHEN 325 MG TAB PO PRN (17:29)
[2018-06-19] MEDS ORDERED: SOD CHLORIDE 0.9% 250 ML IV* ONE (20:04)
[2018-06-20] VITALS (11 sets, daily range): BP systolic 120–140; BP diastolic 64–82; PULSE 73–91; RESP 18–19
[2018-06-20] MEDS: PANTOPRAZOLE IV 80 MG in SOD CHLORIDE 0.9% 100 ML IV SCH ×3 (01:30→21:56)
[2018-06-20] MEDS: OCTREOTIDE 1 MG in DEXTROSE 5% 95 ML IV SCH ×2 (01:30→21:34)
[2018-06-20] MEDS: ACETAMINOPHEN 325 MG TAB PO PRN (01:42)
[2018-06-20] MEDS: SOD CHLORIDE 0.9% 1,000 ML IV SCH ×3 (03:22→23:22)
[2018-06-20] MEDS: LORAZEPAM 2 MG INJ IV SCH ×4 (04:22→21:37)
--- NOTE | 2018-06-20 08:58 | PN ---
Date/Time of Note Date/Time of Note DATE: 06/20/18 TIME: 08:58 Assessment/Plan VTE Prophylaxis Risk score (from Ns)>0 risk: 2 SCD applied (from Ns): Yes Pharmacological prophylaxis: NA/contraindicated Pharm contraindication: thrombocytopenia Lines/Catheters [facility] (from [facility]): Peripheral IV Urinary Cath still in place: No Assessment/Plan Assessment/Plan 1. Acute alcohol intoxication and withdrawal - continue on Ativan for now. Once tolerating PO will do quick librium taper - Will continue monitoring for DTs - IVF on board 2. Acute pancreatitis - CT abd does not show pancreas well. Remains NPO and denies any abdominal pain. still with nausea 3. Pancytopenia - Baseline in setting of liver cirrhosis - seen by hematology last year and appears that patient has chronic thrombocytopenia with drop in platelets after every alcohol binge where he gets admitted. - no active bleeding - GI requesting plt transfusion tonight to prepare for EGD tomorrow 4. Chronic debility and lower extremity weakness - Chronic, likely at baseline, patient not able to ambulate when attempted to be discharged by ED physician, this is baseline for patient - PT/OT when more stable 5. Alcohol abuse - monitor for DTs - Ativan on board 6. Acute GI bleed - GI on board and will plan for EGD tomorrow if plt stable. Will transfuse 1 unit tonight 7. Alcoholic liver cirrhosis with h/o grade 3 or 4 esophageal varices - Patient does not appear to be on any medication as he is homeless and noncompliant - We will initiate oral Lasix and spironolactone treatment once patient able to tolerate p.o. - PPI daily - Patient is noncompliant with medications and will need further counseling regarding compliance when feeling better 8. Disposition - Will transfuse 1 unit plt tonight per GI request and plans for EGD tomorrow. Result Diagram: 06/20/18 0456 06/20/18 0456 Results 24hrs Laboratory Tests Test 06/20/18 04:56 White Blood Count 2.0 L Red Blood Count 3.82 L Hemoglobin 9.7 L Hematocrit 30.9 L Mean Corpuscular Volume 80.9 L Mean Corpuscular Hemoglobin 25.4 L Mean Corpuscular Hemoglobin Concent 31.4 L Red Cell Distribution Width 18.6 H Platelet Count 36 #L Mean Platelet Volume 9.1 Immature Granulocytes % 0.000 L Neutrophils % 59.2 Lymphocytes % 23.4 Monocytes % 12.4 H Eosinophils % 4.5 Basophils % 0.5 Nucleated Red Blood Cells % 0.0 Immature Granulocytes # 0.000 Neutrophils # 1.2 L Lymphocytes # 0.5 L Monocytes # 0.3 Eosinophils # 0.1 Basophils # 0.0 Nucleated Red Blood Cells # 0.0 Sodium Level 137 Potassium Level 3.4 L Chloride Level 103 Carbon Dioxide Level 23 Anion Gap 11 Blood Urea Nitrogen 10 Creatinine 0.45 L Est Glomerular Filtrat Rate mL/min > 60 Glucose Level 81 Calcium Level 7.9 L Magnesium Level 1.8 Total Bilirubin 1.9 H Direct Bilirubin 0.30 #H Indirect Bilirubin 1.6 H Aspartate Amino Transf (AST/SGOT) 140 H Alanine Aminotransferase (ALT/SGPT) 74 H Alkaline Phosphatase 205 H Total Protein 7.7 Albumin 3.3 Globulin 4.40 H Albumin/Globulin Ratio 0.75 Lipase 124 Subjective 24 Hr Interval Summary Free Text/Dictation Patient states hes feeling slightly better but still with nausea. No acute overnight events. Denies any further episodes of hematemesis. Exam/Review of Systems Exam Vitals Vital Signs Date Temp Pulse Resp B/P (MAP) Pulse Ox O2 O2 Flow FiO2 Time Delivery Rate 06/20/18 76 08:01 06/20/18 98.2 18 135/82 98 07:31 (99) 06/17/18 Room Air 10:27 Intake and Output 06/19/18 06/19/18 06/20/18 1515:00 23:00 07:00 IntakeIntake Total 50 ml 2350 ml 710 ml OutputOutput Total 950 ml 1350 ml BalanceBalance 50 ml 1400 ml -640 ml Exam General: Patient is laying in bed. mild distress secondary to nausea Neck: Supple Respiratory: Clear to auscultation bilaterally. no wheezing Cardiovascular: regular rate and rhythm, no obvious murmurs Gastrointestinal: soft, nontender to palpation, bowel sounds heard. Neurological: Moves all extremities spontaneously Skin: No new skin lesions Results Results 24hrs Laboratory Tests Test 06/20/18 04:56 White Blood Count 2.0 L Red Blood Count 3.82 L Hemoglobin 9.7 L Hematocrit 30.9 L Mean Corpuscular Volume 80.9 L Mean Corpuscular Hemoglobin 25.4 L Mean Corpuscular Hemoglobin Concent 31.4 L Red Cell Distribution Width 18.6 H Platelet Count 36 #L Mean Platelet Volume 9.1 Immature Granulocytes % 0.000 L Neutrophils % 59.2 Lymphocytes % 23.4 Monocytes % 12.4 H Eosinophils % 4.5 Basophils % 0.5 Nucleated Red Blood Cells % 0.0 Immature Granulocytes # 0.000 Neutrophils # 1.2 L Lymphocytes # 0.5 L Monocytes # 0.3 Eosinophils # 0.1 Basophils # 0.0 Nucleated Red Blood Cells # 0.0 Sodium Level 137 Potassium Level 3.4 L Chloride Level 103 Carbon Dioxide Level 23 Anion Gap 11 Blood Urea Nitrogen 10 Creatinine 0.45 L Est Glomerular Filtrat Rate mL/min > 60 Glucose Level 81 Calcium Level 7.9 L Magnesium Level 1.8 Total Bilirubin 1.9 H Direct Bilirubin 0.30 #H Indirect Bilirubin 1.6 H Aspartate Amino Transf (AST/SGOT) 140 H Alanine Aminotransferase (ALT/SGPT) 74 H Alkaline Phosphatase 205 H Total Protein 7.7 Albumin 3.3 Globulin 4.40 H Albumin/Globulin Ratio 0.75 Lipase 124 Medications Medication Current Medications Sodium Chloride 1,000 ml @ 100 mls/hr Q10H IV Last administered on 06/19/18at 08:25; Admin Dose 100 MLS/HR; Start 06/17/18 at 15:17 IV Flush (NS 3 ml) 3 ml PER PROTOCOL IV ; Start 06/17/18 at 15:30 Lorazepam (Ativan) 0.5 mg Q6H PRN IV .ANXIETY; Start 06/17/18 at 15:30 Multivitamins 10 ml/Thiamine HCl 100 mg/Folic Acid 1 mg/Sodium Chloride 1,011.2 ml @ 125 mls/ hr DAILY@09 IVPB Last administered on 06/19/18at 08:25; Admin Dose 125 MLS/HR; Start 06/18/18 at 09:00 Lorazepam (Ativan) 2 mg Q10MIN PRN IV seizure; Start 06/17/18 at 15:30 Morphine Sulfate (morphine) 1 mg Q4H PRN IV SEVERE PAIN LEVEL 7-10; Start 06/17/18 at 16:00 Lorazepam (Ativan) 1 mg Q6H IV Last administered on 06/20/18at 04:22; Admin Dose 1 MG; Start 06/17/18 at 16:00 Octreotide Acetate 1 mg/ Dextrose 100 ml @ 5 mls/hr Q20H IV Last administered on 06/19/18 05:41; Admin Dose 5 MLS/HR; Start 06/18/18 at 09:30 Pantoprazole 80 mg/Sodium Chloride 100 ml @ 10 mls/hr Q10H IV Last administered on 06/19/18 16:12; Admin Dose 10 MLS/HR; Start 06/18/18 at 09:30 Ceftriaxone Sodium 50 ml @ 100 mls/hr Q24H IVPB Last administered on 06/19/18 09:46; Admin Dose 100 MLS/HR; Start 06/18/18 at 09:30 Ondansetron HCl (Zofran Inj) 4 mg Q6H PRN IV NAUSEA AND/OR VOMITING Last administered on 06/19/18 10:29; Admin Dose 4 MG; Start 06/18/18 at 11:00 Labetalol HCl (Labetalol) 10 mg Q4H PRN IV SBP > 160 Last administered on 06/18/18 12:26; Admin Dose 10 MG; Start 06/18/18 at 12:30 Phytonadione (Vitamin K) 10 mg DAILY SC Last administered on 06/19/18 08:26; Admin Dose 10 MG; Start 06/19/18 at 09:00; Stop 06/20/18 at 09:01 Acetaminophen (Tylenol Tab) 650 mg Q6H PRN PO MILD PAIN(1-3)OR ELEVATED TEMP Last administered on 06/20/18 01:42; Admin Dose 650 MG; Start 06/19/18 at 17:30 Potassium Chloride 100 ml @ 50 mls/hr Q2H IVPB ; Start 06/20/18 at 09:00; Stop 06/20/18 at 12:59; Status LAVERN MOON MD Jun 20, 2018 08:58
[2018-06-20] MEDS: CEFTRIAXONE 1 GM/50 ML (PMX) 50 ML IVPB SCH (09:36)
[2018-06-20] MEDS: MULTIVITAMINS 10 ML, THIAMINE 100 MG, FOLIC ACID 1 MG in SOD CHLORIDE 0.9% 1,000 ML IVPB SCH (09:36)
[2018-06-20] MEDS: PHYTONADIONE 10 MG/ML INJ SC SCH (09:36)
[2018-06-20] MEDS: POTASSIUM CHLORIDE 100 ML IVPB SCH ×2 (11:03→13:03)
--- NOTE | 2018-06-20 12:35 | PN ---
Date/Time of Note Date/Time of Note DATE: 06/20/18 TIME: 12:31 Assessment/Plan VTE Prophylaxis Risk score (from Ns)>0 risk: 2 SCD applied (from Ns): Yes Pharmacological prophylaxis: other (scds) Lines/Catheters IV [facility] (from [facility]): Peripheral IV Urinary Cath still in place: No Assessment/Plan Hospital Course Summary Assessment and Plan: Assessment: Hematemesis -PPI gtt/Octreotide gtt ETOH withdrawal Elevated LFTs with direct hyperbilirubinemia (2/2 to progressive liver disease) -MRCP No evidence of biliary duct obstruction Alcoholic liver cirrhosis - DF on admission 22.6 Pancytopenia- likely 2/2 to bone arrow suppression r/t excessive ETOH abuse Elevated lipase -MRCP- pancreas not well visualized Plan: Continue PPI/Octreotide Transfuse 1 unit of plt tonight at 2100 Clear liquid diet- NPO after 06/21/09 at 0800 Monitor for overt signs of GI bleed Possible EGD tomorrow Patient seen in collaboration with Dr. Chang Subjective: Course reviewed with nursing staff Patient interviewed and examined All labs, imaging and other results reviewed Patient states he feels a little better Lipase WNL, Plt improved post infusion No over night events, no overt signs of GI bleed Discussed possible plan for EGD tomorrow, pt verbalized understanding PHYSICAL EXAMINATION: GENERAL: Alert & oriented x 3, disheveled SKIN: No lesions EYES: Pupils equal reactive to light and accommodation, no discharge. EARS/NOSE AND THROAT: Ears normal, nose normal NECK: Supple, no masses CHEST: Inspection within normal limits. CARDIOVASCULAR: Heart: Regular rate and rhythm RESPIRATORY: Lungs clear to auscultation and percussion, no wheezing, no rubs GASTROINTESTINAL AND LIVER: Abdomen: Soft, upper abd tenderness, slightly distended, no hernias, no masses, no organomegaly, no guarding, no rebound tenderness, normoactive bowel sounds. Rectal: Deferred. EXTREMITIES: No cyanosis, clubbing or edema. Result Diagram: 06/20/186 06/20/186 Results 24hrs Laboratory Tests Test 06/20/18 04:56 White Blood Count 2.0 L Red Blood Count 3.82 L Hemoglobin 9.7 L Hematocrit 30.9 L Mean Corpuscular Volume 80.9 L Mean Corpuscular Hemoglobin 25.4 L Mean Corpuscular Hemoglobin Concent 31.4 L Red Cell Distribution Width 18.6 H Platelet Count 36 #L Mean Platelet Volume 9.1 Immature Granulocytes % 0.000 L Neutrophils % 59.2 Lymphocytes % 23.4 Monocytes % 12.4 H Eosinophils % 4.5 Basophils % 0.5 Nucleated Red Blood Cells % 0.0 Immature Granulocytes # 0.000 Neutrophils # 1.2 L Lymphocytes # 0.5 L Monocytes # 0.3 Eosinophils # 0.1 Basophils # 0.0 Nucleated Red Blood Cells # 0.0 Sodium Level 137 Potassium Level 3.4 L Chloride Level 103 Carbon Dioxide Level 23 Anion Gap 11 Blood Urea Nitrogen 10 Creatinine 0.45 L Est Glomerular Filtrat Rate mL/min > 60 Glucose Level 81 Calcium Level 7.9 L Magnesium Level 1.8 Total Bilirubin 1.9 H Direct Bilirubin 0.30 #H Indirect Bilirubin 1.6 H Aspartate Amino Transf (AST/SGOT) 140 H Alanine Aminotransferase (ALT/SGPT) 74 H Alkaline Phosphatase 205 H Total Protein 7.7 Albumin 3.3 Globulin 4.40 H Albumin/Globulin Ratio 0.75 Lipase 124 Exam/Review of Systems Exam Vitals Vital Signs Date Temp Pulse Resp B/P (MAP) Pulse Ox O2 O2 Flow FiO2 Time Delivery Rate 06/20/18 98.3 79 18 129/69 97 11:42 (89) 06/17/18 Room Air 10:27 Intake and Output 06/19/18 06/19/18 06/20/18 1414:59 22:59 06:59 IntakeIntake Total 50 ml 2350 ml 710 ml OutputOutput Total 950 ml 1350 ml BalanceBalance 50 ml 1400 ml -640 ml Results Results 24hrs Laboratory Tests Test 06/20/18 04:56 White Blood Count 2.0 L Red Blood Count 3.82 L Hemoglobin 9.7 L Hematocrit 30.9 L Mean Corpuscular Volume 80.9 L Mean Corpuscular Hemoglobin 25.4 L Mean Corpuscular Hemoglobin Concent 31.4 L Red Cell Distribution Width 18.6 H Platelet Count 36 #L Mean Platelet Volume 9.1 Immature Granulocytes % 0.000 L Neutrophils % 59.2 Lymphocytes % 23.4 Monocytes % 12.4 H Eosinophils % 4.5 Basophils % 0.5 Nucleated Red Blood Cells % 0.0 Immature Granulocytes # 0.000 Neutrophils # 1.2 L Lymphocytes # 0.5 L Monocytes # 0.3 Eosinophils # 0.1 Basophils # 0.0 Nucleated Red Blood Cells # 0.0 Sodium Level 137 Potassium Level 3.4 L Chloride Level 103 Carbon Dioxide Level 23 Anion Gap 11 Blood Urea Nitrogen 10 Creatinine 0.45 L Est Glomerular Filtrat Rate mL/min > 60 Glucose Level 81 Calcium Level 7.9 L Magnesium Level 1.8 Total Bilirubin 1.9 H Direct Bilirubin 0.30 #H Indirect Bilirubin 1.6 H Aspartate Amino Transf (AST/SGOT) 140 H Alanine Aminotransferase (ALT/SGPT) 74 H Alkaline Phosphatase 205 H Total Protein 7.7 Albumin 3.3 Globulin 4.40 H Albumin/Globulin Ratio 0.75 Lipase 124 Medications Medication Current Medications Sodium Chloride 1,000 ml @ 100 mls/hr Q10H IV Last administered on 06/19/18at 08:25; Admin Dose 100 MLS/HR; Start 06/17/18 at 15:17 IV Flush (NS 3 ml) 3 ml PER PROTOCOL IV ; Start 06/17/18 at 15:30 Lorazepam (Ativan) 0.5 mg Q6H PRN IV .ANXIETY; Start 06/17/18 at 15:30 Multivitamins 10 ml/Thiamine HCl 100 mg/Folic Acid 1 mg/Sodium Chloride 1,011.2 ml @ 125 mls/ hr DAILY@09 IVPB Last administered on 06/20/18at 09:36; Admin Dose 125 MLS/HR; Start 06/18/18 at 09:00 Lorazepam (Ativan) 2 mg Q10MIN PRN IV seizure; Start 06/17/18 at 15:30 Morphine Sulfate (morphine) 1 mg Q4H PRN IV SEVERE PAIN LEVEL 7-10; Start 06/17/18 at 16:00 Lorazepam (Ativan) 1 mg Q6H IV Last administered on 06/20/18at 09:36; Admin Dose 1 MG; Start 06/17/18 at 16:00 Octreotide Acetate 1 mg/ Dextrose 100 ml @ 5 mls/hr Q20H IV Last administered on 06/19/18at 05:41; Admin Dose 5 MLS/HR; Start 06/18/18 at 09:30 Pantoprazole 80 mg/Sodium Chloride 100 ml @ 10 mls/hr Q10H IV Last administered on 06/20/18at 11:03; Admin Dose 10 MLS/HR; Start 06/18/18 at 09:30 Ceftriaxone Sodium 50 ml @ 100 mls/hr Q24H IVPB Last administered on 06/20/18 09:36; Admin Dose 100 MLS/HR; Start 06/18/18 at 09:30 Ondansetron HCl (Zofran Inj) 4 mg Q6H PRN IV NAUSEA AND/OR VOMITING Last administered on 06/19/18 10:29; Admin Dose 4 MG; Start 06/18/18 at 11:00 Labetalol HCl (Labetalol) 10 mg Q4H PRN IV SBP > 160 Last administered on 12:26; Admin Dose 10 MG; Start 06/18/18 at 12:30 Acetaminophen (Tylenol Tab) 650 mg Q6H PRN PO MILD PAIN(1-3)OR ELEVATED TEMP Last administered on 06/20/18 01:42; Admin Dose 650 MG; Start 06/19/18 at 17:30 Potassium Chloride 100 ml @ 50 mls/hr Q2H IVPB Last administered on 06/20/18 11:03; Admin Dose 50 MLS/HR; Start 06/20/18 at 11:00; Stop 06/20/18 at 14:59 MANNY HURT Jun 20, 2018 12:35
--- NOTE | 2018-06-20 17:36 | PREAC ---
Date/Time of Note Date/Time of Note DATE: 06/20/18 TIME: 17:34 Anesthesia Eval and Record Evaluation Time Pre-Procedure Interview DATE: 06/20/18 TIME: 17:34 Age 43 Sex male NPO: 8 hrs Preoperative diagnosis Hematemesis Planned procedure EGD Past Medical History Past Medical History: Includes Hepatic: Alcohol abuse, Cirrhosis Surgery & Anesthesia Issues No known issue Meds Anticoagulation: No Beta Kassidy within 24 hr: No Reason Beta Kassidy not given: Pt. not on B-Kassidy No Active Prescriptions or Reported Meds Current Medications Sodium Chloride 1,000 ml @ 100 mls/hr Q10H IV Last administered on 06/20/18at 12:46; Admin Dose 100 MLS/HR; Start 06/17/18 at 15:17 IV Flush (NS 3 ml) 3 ml PER PROTOCOL IV ; Start 06/17/18 at 15:30 Lorazepam (Ativan) 0.5 mg Q6H PRN IV .ANXIETY; Start 06/17/18 at 15:30 Multivitamins 10 ml/Thiamine HCl 100 mg/Folic Acid 1 mg/Sodium Chloride 1,011.2 ml @ 125 mls/ hr DAILY@09 IVPB Last administered on 06/20/18at 09:36; Admin Dose 125 MLS/HR; Start 06/18/18 at 09:00 Lorazepam (Ativan) 2 mg Q10MIN PRN IV seizure; Start 06/17/18 at 15:30 Morphine Sulfate (morphine) 1 mg Q4H PRN IV SEVERE PAIN LEVEL 7-10; Start 06/17/18 at 16:00 Lorazepam (Ativan) 1 mg Q6H IV Last administered on 06/20/18at 16:27; Admin Dose 1 MG; Start 06/17/18 at 16:00 Octreotide Acetate 1 mg/ Dextrose 100 ml @ 5 mls/hr Q20H IV Last administered on 06/19/18at 05:41; Admin Dose 5 MLS/HR; Start 06/18/18 at 09:30 Pantoprazole 80 mg/Sodium Chloride 100 ml @ 10 mls/hr Q10H IV Last administered on 06/20/18at 11:03; Admin Dose 10 MLS/HR; Start 06/18/18 at 09:30 Ceftriaxone Sodium 50 ml @ 100 mls/hr Q24H IVPB Last administered on 06/20/18at 09:36; Admin Dose 100 MLS/HR; Start 06/18/18 at 09:30 Ondansetron HCl (Zofran Inj) 4 mg Q6H PRN IV NAUSEA AND/OR VOMITING Last administered on 06/19/18at 10:29; Admin Dose 4 MG; Start 06/18/18 at 11:00 Labetalol HCl (Labetalol) 10 mg Q4H PRN IV SBP > 160 Last administered on 06/18/18at 12:26; Admin Dose 10 MG; Start 06/18/18 at 12:30 Acetaminophen (Tylenol Tab) 650 mg Q6H PRN PO MILD PAIN(1-3)OR ELEVATED TEMP Last administered on 06/20/18at 01:42; Admin Dose 650 MG; Start 06/19/18 at 17:30 Meds reviewed: Yes Allergies Coded Allergies: No Known Allergy (Unverified , 01/21/16) Allergies Reviewed: Yes Labs/Studies Labs Reviewed: Reviewed by anesthesiologist Result Diagram: 06/20/18 0456 06/20/18 0456 Laboratory Tests 06/20/18 04:56 Blood Bank Test 06/20/18 14:39 Antibody Screen NEGATIVE Blood Product Summary Counts Blood Type O POSITIVE test: N/A Studies: CXR (No acute disease.) Pre-procedure Exam Last vitals Vital Signs Date Temp Pulse Resp B/P (MAP) Pulse Ox O2 O2 Flow FiO2 Time Delivery Rate 06/20/18 90 16:01 06/20/18 98.7 19 140/78 98 15:51 (98) 06/17/18 Room Air 10:27 Airway: Adequate mouth opening Mallampati: Mallampati II Teeth: Normal Lung: Normal Heart: Normal ASA Physical Status ASA physical status: 2 Emergency: None Planned Anesthetic General/MAC: MAC Pre-operative Attestations Prior to commencing anesthesia and surgery, the patient was re-evaluated, there was verification of: *The patient's identity *The results of appropriate recent lab work and preoperative vital signs *The above evaluation not changing prior to induction *Anesthetic plan, risk benefits, alternative and complications discussed with patient/family; questions answered; patient/family understands, accepts and wishes to proceed. CIERRA KLEIN Jun 20, 2018 17:36
[2018-06-21] VITALS (22 sets, daily range): BP systolic 129–161; BP diastolic 62–96; PULSE 72–88; RESP 17–22
[2018-06-21] MEDS: SOD CHLORIDE 0.9% 1,000 ML IV SCH ×3 (03:39→19:22)
[2018-06-21] MEDS: morphine 2 MG INJ IV PRN ×5 (03:41→23:06)
[2018-06-21] MEDS: LORAZEPAM 2 MG INJ IV SCH ×4 (04:00→21:59)
[2018-06-21] MEDS: ONDANSETRON 4 MG INJ IV PRN ×3 (06:38→18:52)
--- NOTE | 2018-06-21 08:54 | PN ---
Date/Time of Note Date/Time of Note DATE: 06/21/18 TIME: 08:53 Assessment/Plan VTE Prophylaxis Risk score (from Ns)>0 risk: 2 [place] [facility] [place] Pharmacological prophylaxis: NA/contraindicated Pharm contraindication: thrombocytopenia Lines/Catheters IV Catheter Type (from [facility]): Peripheral IV Urinary Cath still in place: No Assessment/Plan Assessment/Plan 1. Acute alcohol intoxication and withdrawal - patient complaining of generalized muscle aches and cramping - continue on Ativan for now. currently NPO but will transition to Librium once tolerating PO - Will continue monitoring for DTs - IVF on board 2. Acute pancreatitis - CT abd does not show pancreas well. Remains NPO and denies any abdominal pain 3. Pancytopenia - Baseline in setting of liver cirrhosis - seen by hematology last year and appears that patient has chronic thrombocyto penia with drop in platelets after every alcohol binge where he gets admitted. - no active bleeding 4. Chronic debility and lower extremity weakness - Chronic, likely at baseline, patient not able to ambulate when attempted to be discharged by ED physician, this is baseline for patient - PT/OT 5. Alcohol abuse - monitor for DTs - Ativan on board 6. Acute GI bleed - GI on board. Plt noted this am to be 33 and will transfuse another unit of platelets 7. Alcoholic liver cirrhosis with h/o grade 3 or 4 esophageal varices - Patient does not appear to be on any medication as he is homeless and noncompliant - We will initiate oral Lasix and spironolactone treatment once patient able to tolerate p.o. - PPI daily - Patient is noncompliant with medications and will need further counseling regarding compliance when feeling better 8. Disposition - Continue monitoring for DTs - Pending EGD today Result Diagram: 06/21/18 0523 06/21/18 0523 Results 24hrs Laboratory Tests Test 06/21/18 05:23 White Blood Count 2.0 L Red Blood Count 4.03 L Hemoglobin 10.3 L Hematocrit 32.6 L Mean Corpuscular Volume 80.9 L Mean Corpuscular Hemoglobin 25.6 L Mean Corpuscular Hemoglobin Concent 31.6 L Red Cell Distribution Width 18.6 H Platelet Count 33 L Mean Platelet Volume Immature Granulocytes % 0.500 H Neutrophils % 52.4 Lymphocytes % 29.7 Monocytes % 12.8 H Eosinophils % 4.1 Basophils % 0.5 Nucleated Red Blood Cells % 0.0 Immature Granulocytes # 0.010 Neutrophils # 1.0 L Lymphocytes # 0.6 L Monocytes # 0.3 Eosinophils # 0.1 Basophils # 0.0 Nucleated Red Blood Cells # 0.0 Sodium Level 138 Potassium Level 3.5 Chloride Level 105 Carbon Dioxide Level 24 Anion Gap 9 Blood Urea Nitrogen 7 Creatinine 0.49 L Est Glomerular Filtrat Rate mL/min > 60 Glucose Level 86 Calcium Level 8.0 L Total Bilirubin 2.1 H Direct Bilirubin 0.20 Indirect Bilirubin 1.9 H Aspartate Amino Transf (AST/SGOT) 128 H Alanine Aminotransferase (ALT/SGPT) 70 H Alkaline Phosphatase 200 H Total Protein 8.0 Albumin 3.4 Globulin 4.60 H Albumin/Globulin Ratio 0.73 Subjective 24 Hr Interval Summary Free Text/Dictation Patient complaining of muscle cramping and generalized body discomfort. Denies any further hematemesis and no signs of melena. Exam/Review of Systems Exam Vitals Vital Signs Date Temp Pulse Resp B/P (MAP) Pulse Ox O2 O2 Flow FiO2 Time Delivery Rate 06/21/18 98.6 85 20 131/66 96 Room Air 07:48 (87) Intake and Output 06/20/18 06/20/18 06/21/18 1515:00 23:00 07:00 IntakeIntake Total 855 ml 1375.7 ml OutputOutput Total 1500 ml 2950 ml BalanceBalance -645 ml -1574.3 ml Exam General: Patient is laying in bed. mild distress secondary to muscle discomfort Neck: Supple Respiratory: Clear to auscultation bilaterally. no wheezing Cardiovascular: regular rate and rhythm, no obvious murmurs Gastrointestinal: soft, nontender to palpation, nondistended, bowel sounds heard. Neurological: Moves all extremities spontaneously Skin: No new skin lesions Results Results 24hrs Laboratory Tests Test 06/21/18 05:23 White Blood Count 2.0 L Red Blood Count 4.03 L Hemoglobin 10.3 L Hematocrit 32.6 L Mean Corpuscular Volume 80.9 L Mean Corpuscular Hemoglobin 25.6 L Mean Corpuscular Hemoglobin Concent 31.6 L Red Cell Distribution Width 18.6 H Platelet Count 33 L Mean Platelet Volume Immature Granulocytes % 0.500 H Neutrophils % 52.4 Lymphocytes % 29.7 Monocytes % 12.8 H Eosinophils % 4.1 Basophils % 0.5 Nucleated Red Blood Cells % 0.0 Immature Granulocytes # 0.010 Neutrophils # 1.0 L Lymphocytes # 0.6 L Monocytes # 0.3 Eosinophils # 0.1 Basophils # 0.0 Nucleated Red Blood Cells # 0.0 Sodium Level 138 Potassium Level 3.5 Chloride Level 105 Carbon Dioxide Level 24 Anion Gap 9 Blood Urea Nitrogen 7 Creatinine 0.49 L Est Glomerular Filtrat Rate mL/min > 60 Glucose Level 86 Calcium Level 8.0 L Total Bilirubin 2.1 H Direct Bilirubin 0.20 Indirect Bilirubin 1.9 H Aspartate Amino Transf (AST/SGOT) 128 H Alanine Aminotransferase (ALT/SGPT) 70 H Alkaline Phosphatase 200 H Total Protein 8.0 Albumin 3.4 Globulin 4.60 H Albumin/Globulin Ratio 0.73 Medications Medication Current Medications Sodium Chloride 1,000 ml @ 100 mls/hr Q10H IV Last administered on 06/21/18 03:39; Admin Dose 100 MLS/HR; Start 06/17/18 at 15:17 IV Flush (NS 3 ml) 3 ml PER PROTOCOL IV ; Start 06/17/18 at 15:30 Lorazepam (Ativan) 0.5 mg Q6H PRN IV .ANXIETY; Start 06/17/18 at 15:30 Multivitamins 10 ml/Thiamine HCl 100 mg/Folic Acid 1 mg/Sodium Chloride 1,011.2 ml @ 125 mls/ hr DAILY@09 IVPB Last administered on 06/20/18at 09:36; Admin Dose 125 MLS/HR; Start 06/18/18 at 09:00 Lorazepam (Ativan) 2 mg Q10MIN PRN IV seizure; Start 06/17/18 at 15:30 Morphine Sulfate (morphine) 1 mg Q4H PRN IV SEVERE PAIN LEVEL 7-10 Last administered on 06/21/18at 03:41; Admin Dose 1 MG; Start 06/17/18 at 16:00 Lorazepam (Ativan) 1 mg Q6H IV Last administered on 06/20/18at 21:37; Admin Dose 1 MG; Start 06/17/18 at 16:00 Octreotide Acetate 1 mg/ Dextrose 100 ml @ 5 mls/hr Q20H IV Last administered on 06/20/18 21:34; Admin Dose 5 MLS/HR; Start 06/18/18 at 09:30 Pantoprazole 80 mg/Sodium Chloride 100 ml @ 10 mls/hr Q10H IV Last administered on 06/20/18 21:56; Admin Dose 10 MLS/HR; Start 06/18/18 at 09:30 Ceftriaxone Sodium 50 ml @ 100 mls/hr Q24H IVPB Last administered on 06/20/18 09:36; Admin Dose 100 MLS/HR; Start 06/18/18 at 09:30 Ondansetron HCl (Zofran Inj) 4 mg Q6H PRN IV NAUSEA AND/OR VOMITING Last administered on 06/21/18 06:38; Admin Dose 4 MG; Start 06/18/18 at 11:00 Labetalol HCl (Labetalol) 10 mg Q4H PRN IV SBP > 160 Last administered on 06/18/18 12:26; Admin Dose 10 MG; Start 06/18/18 at 12:30 Acetaminophen (Tylenol Tab) 650 mg Q6H PRN PO MILD PAIN(1-3)OR ELEVATED TEMP Last administered on 06/20/18 01:42; Admin Dose 650 MG; Start 06/19/18 at 17:30 LAVERN NJ MD Jun 21, 2018 08:53
[2018-06-21] MEDS: MULTIVITAMINS 10 ML, THIAMINE 100 MG, FOLIC ACID 1 MG in SOD CHLORIDE 0.9% 1,000 ML IVPB SCH (09:44)
[2018-06-21] MEDS: CEFTRIAXONE 1 GM/50 ML (PMX) 50 ML IVPB SCH (09:46)
[2018-06-21] MEDS: PANTOPRAZOLE IV 80 MG in SOD CHLORIDE 0.9% 100 ML IV SCH ×2 (09:52→22:00)
[2018-06-21] MEDS: POTASSIUM CHLORIDE 100 ML IVPB SCH ×2 (11:57→12:45)
[2018-06-21] MEDS: ACETAMINOPHEN 325 MG TAB PO PRN (12:05)
[2018-06-21] MEDS: OCTREOTIDE 1 MG in DEXTROSE 5% 95 ML IV SCH (16:49)
[2018-06-21] MEDS ORDERED: PROPOFOL 20 ML ONE (16:53)
[2018-06-22] VITALS (13 sets, daily range): BP systolic 134–187; BP diastolic 77–97; PULSE 81–160; RESP 18–22
[2018-06-22] MEDS ORDERED: HALOPERIDOL 5 MG INJ ONE (02:26)
[2018-06-22] MEDS ORDERED: HALOPERIDOL 5 MG INJ IM ONE ×2 (02:30→04:46)
[2018-06-22] MEDS ORDERED: LORAZEPAM 2 MG INJ IV ONE ×2 (02:30)
[2018-06-22] MEDS: PANTOPRAZOLE IV 80 MG in SOD CHLORIDE 0.9% 100 ML IV SCH (03:10)
[2018-06-22] MEDS: morphine 2 MG INJ IV PRN ×2 (04:03→08:10)
[2018-06-22] MEDS: LORAZEPAM 2 MG INJ IV SCH ×4 (04:03→21:54)
[2018-06-22] MEDS: SOD CHLORIDE 0.9% 1,000 ML IV SCH (04:07)
[2018-06-22] MEDS ORDERED: LORAZEPAM 2 MG INJ IM ONE (05:00)
[2018-06-22] MEDS ORDERED: DIPHENHYDRAMINE 50 MG INJ IV ONE (05:00)
--- NOTE | 2018-06-22 06:58 | PAC ---
Date/Time of Note Date/Time of Note DATE: 06/22/18 TIME: 06:58 Post-Anesthesia Notes Post-Anesthesia Note Last documented vital signs Vital Signs Date Temp Pulse Resp B/P (MAP) Pulse Ox O2 O2 Flow FiO2 Time Delivery Rate 06/22/18 98.4 96 18 160/92 96 Room Air 04:00 (114) Activity: WNL Respiratory function: WNL Cardiovascular function: WNL Mental status: Baseline Pain reasonably controlled: Yes Hydration appropriate: Yes Nausea/Vomiting absent: Yes PARIS CORRAL MD Jun 22, 2018 06:58
[2018-06-22] MEDS: CHLORDIAZEPOXIDE 25 MG CAP PO SCH ×3 (08:09→21:36)
[2018-06-22] MEDS: MULTIVITAMINS 10 ML, THIAMINE 100 MG, FOLIC ACID 1 MG in SOD CHLORIDE 0.9% 1,000 ML IVPB SCH (08:09)
[2018-06-22] MEDS: PROPRANOLOL 10 MG TAB PO SCH ×2 (08:09→21:33)
--- NOTE | 2018-06-22 09:09 | PN ---
Date/Time of Note Date/Time of Note DATE: 06/22/18 TIME: 09:08 Assessment/Plan VTE Prophylaxis Risk score (from Ns)>0 risk: 7 SCD applied (from [facility] [place]): Yes Pharmacological prophylaxis: NA/contraindicated Pharm contraindication: thrombocytopenia Lines/Catheters IV Catheter Type (from [email or web address] Peripheral IV Urinary Cath still in place: No Assessment/Plan Assessment/Plan 1. Acute alcohol intoxication and withdrawal - Patient very agitated this am and concerns about anesthesia reaction vs DTs vs hepatic encephalopathy. Given Ativan and Haldol overnight with minimal effectiveness - Ativan and Librium on board and PRN dosages adjusted - IVF on board 2. Acute pancreatitis - will try clear diet and advance as tolerated 3. Pancytopenia - Baseline in setting of liver cirrhosis - seen by hematology last year and appears that patient has chronic thrombocytopenia with drop in platelets after every alcohol binge where he gets admitted. - no active bleeding 4. Chronic debility and lower extremity weakness - Chronic, likely at baseline, patient not able to ambulate when attempted to be discharged by ED physician, this is baseline for patient - PT/OT 5. Alcohol abuse - monitor for DTs - Ativan on board 6. Acute GI bleed - GI on board. Plt noted this am to be 38 without rigo bleeding 7. Alcoholic liver cirrhosis with h/o grade 3 or 4 esophageal varices - Patient does not appear to be on any medication as he is homeless and noncompliant - propranolol on board - PPI daily 8. Disposition - Continue monitoring for improvement in mentation Result Diagram: 06/22/18 0505 06/22/18 0505 Results 24hrs Laboratory Tests Test 06/22/18 05:05 White Blood Count 2.3 L Red Blood Count 4.39 L Hemoglobin 11.0 L Hematocrit 34.5 L Mean Corpuscular Volume 78.6 L Mean Corpuscular Hemoglobin 25.1 L Mean Corpuscular Hemoglobin Concent 31.9 L Red Cell Distribution Width 18.9 H Platelet Count 38 L Mean Platelet Volume Immature Granulocytes % 0.000 L Neutrophils % 64.5 Lymphocytes % 16.7 Monocytes % 15.8 H Eosinophils % 2.1 Basophils % 0.9 Nucleated Red Blood Cells % 0.0 Immature Granulocytes # 0.000 Neutrophils # 1.5 L Lymphocytes # 0.4 L Monocytes # 0.4 Eosinophils # 0.1 Basophils # 0.0 Nucleated Red Blood Cells # 0.0 Sodium Level 138 Potassium Level 3.2 L Chloride Level 101 Carbon Dioxide Level 23 Anion Gap 14 H Blood Urea Nitrogen 9 Creatinine 0.54 L Est Glomerular Filtrat Rate mL/min > 60 Glucose Level 105 Calcium Level 8.8 Total Bilirubin 2.5 H Direct Bilirubin 0.20 Indirect Bilirubin 2.3 H Aspartate Amino Transf (AST/SGOT) 101 H Alanine Aminotransferase (ALT/SGPT) 72 H Alkaline Phosphatase 232 H Total Protein 9.0 H Albumin 4.1 Globulin 4.90 H Albumin/Globulin Ratio 0.83 Subjective 24 Hr Interval Summary Free Text/Dictation Patient confused this am and agitated. Currently restrained but not staying still. Was given multiple doses of Ativan and Haldol without any relief. Patient with pressured speech and hard to understand but asking for something to drink. Exam/Review of Systems Exam Vitals Vital Signs Date Temp Pulse Resp B/P (MAP) Pulse Ox O2 O2 Flow FiO2 Time Delivery Rate 06/22/18 98.4 96 18 160/92 96 Room Air 04:00 (114) Intake and Output 06/21/18 06/21/18 06/22/18 1515:00 23:00 07:00 IntakeIntake Total 2522 ml 930 ml OutputOutput Total 1225 ml 1500 ml BalanceBalance 1297 ml -570 ml Exam General: Patient is laying in bed. agitated and confused. fighting restraints Neck: Supple Respiratory: Clear to auscultation bilaterally. no wheezing Cardiovascular: regular rate and rhythm, no obvious murmurs Gastrointestinal: soft, nontender to palpation, nondistended, bowel sounds heard. Neurological: Moves all extremities spontaneously Skin: No new skin lesions Results Results 24hrs Laboratory Tests Test 06/22/18 05:05 White Blood Count 2.3 L Red Blood Count 4.39 L Hemoglobin 11.0 L Hematocrit 34.5 L Mean Corpuscular Volume 78.6 L Mean Corpuscular Hemoglobin 25.1 L Mean Corpuscular Hemoglobin Concent 31.9 L Red Cell Distribution Width 18.9 H Platelet Count 38 L Mean Platelet Volume Immature Granulocytes % 0.000 L Neutrophils % 64.5 Lymphocytes % 16.7 Monocytes % 15.8 H Eosinophils % 2.1 Basophils % 0.9 Nucleated Red Blood Cells % 0.0 Immature Granulocytes # 0.000 Neutrophils # 1.5 L Lymphocytes # 0.4 L Monocytes # 0.4 Eosinophils # 0.1 Basophils # 0.0 Nucleated Red Blood Cells # 0.0 Sodium Level 138 Potassium Level 3.2 L Chloride Level 101 Carbon Dioxide Level 23 Anion Gap 14 H Blood Urea Nitrogen 9 Creatinine 0.54 L Est Glomerular Filtrat Rate mL/min > 60 Glucose Level 105 Calcium Level 8.8 Total Bilirubin 2.5 H Direct Bilirubin 0.20 Indirect Bilirubin 2.3 H Aspartate Amino Transf (AST/SGOT) 101 H Alanine Aminotransferase (ALT/SGPT) 72 H Alkaline Phosphatase 232 H Total Protein 9.0 H Albumin 4.1 Globulin 4.90 H Albumin/Globulin Ratio 0.83 Medications Medication Current Medications Sodium Chloride 1,000 ml @ 100 mls/hr Q10H IV Last administered on 06/22/18 04:07; Admin Dose 100 MLS/HR; Start 06/17/18 at 15:17 IV Flush (NS 3 ml) 3 ml PER PROTOCOL IV ; Start 06/17/18 at 15:30 Multivitamins 10 ml/Thiamine HCl 100 mg/Folic Acid 1 mg/Sodium Chloride 1,011.2 ml @ 125 mls/ hr DAILY@09 IVPB Last administered on 06/22/18 08:09; Admin Dose 125 MLS/HR; Start 06/18/18 at 09:00 Lorazepam (Ativan) 2 mg Q10MIN PRN IV seizure; Start 06/17/18 at 15:30 Morphine Sulfate (morphine) 1 mg Q4H PRN IV SEVERE PAIN LEVEL 7-10 Last administered on 06/22/18 08:10; Admin Dose 1 MG; Start 06/17/18 at 16:00 Lorazepam (Ativan) 1 mg Q6H IV Last administered on 06/22/18 04:03; Admin Dose 1 MG; Start 06/17/18 at 16:00 Octreotide Acetate 1 mg/ Dextrose 100 ml @ 5 mls/hr Q20H IV Last administered on 06/21/18 16:49; Admin Dose 5 MLS/HR; Start 06/18/18 at 09:30 Pantoprazole 80 mg/Sodium Chloride 100 ml @ 10 mls/hr Q10H IV Last administered on 06/21/18 09:52; Admin Dose 10 MLS/HR; Start 06/18/18 at 09:30 Ondansetron HCl (Zofran Inj) 4 mg Q6H PRN IV NAUSEA AND/OR VOMITING Last administered on 06/21/18 18:52; Admin Dose 4 MG; Start 06/18/18 at 11:00 Labetalol HCl (Labetalol) 10 mg Q4H PRN IV SBP > 160 Last administered on 06/18/18 12:26; Admin Dose 10 MG; Start 06/18/18 at 12:30 Acetaminophen (Tylenol Tab) 650 mg Q6H PRN PO MILD PAIN(1-3)OR ELEVATED TEMP L ast administered on 06/21/18 12:05; Admin Dose 650 MG; Start 06/19/18 at 17:30 Propranolol HCl (Inderal) 10 mg BID PO Last administered on 06/22/18 08:09; Admin Dose 10 MG; Start 06/22/18 at 09:00 Lorazepam (Ativan) 1 mg Q2H PRN IV FOR AGITATION; Start 06/22/18 at 00:00 Lorazepam (Ativan) 2 mg Q3H PRN IV FOR SEVERE AGITATION Last administered on 06/22/18 07:46; Admin Dose 2 MG; Start 06/22/18 at 00:00 Chlordiazepoxide (Librium) 50 mg TID PO Last administered on 06/22/18 08:09; Admin Dose 50 MG; Start 06/22/18 at 09:00 LAVERN NJ MD Jun 22, 2018 09:08
[2018-06-22] MEDS ORDERED: MIDAZOLAM 1 MG/ML 2 ML INJ IV PRN (10:30)
[2018-06-22] MEDS ORDERED: LORAZEPAM 2 MG INJ IV PRN ×3 (10:30)
--- NOTE | 2018-06-22 13:11 | PN ---
Date/Time of Note Date/Time of Note DATE: 06/22/18 TIME: 13:05 Assessment/Plan VTE Prophylaxis Risk score (from Ns)>0 risk: 5 SCD applied (from Ns): Yes Pharmacological prophylaxis: other (scds) Lines/Catheters IV C[facility] Type (from [facility]): Peripheral IV Urinary Cath still in place: No Assessment/Plan Hospital Course Summary Assessment and Plan: Assessment: Hematemesis EGD 06/21/1819 Grade 3/4 esophageal varices, post EBL x3 Small fundal gastric varices Portal gastropathy Otherwise normal EGD ETOH withdrawal Elevated LFTs with direct hyperbilirubinemia (2/2 to progressive liver disease) -MRCP No evidence of biliary duct obstruction Alcoholic liver cirrhosis - DF on admission 22.6 Pancytopenia- likely 2/2 to bone arrow suppression r/t excessive ETOH abuse Elevated lipase -MRCP- pancreas not well visualized Plan: PPI BID tx D/c octreotide gtt Repeat EGD/EVL in 3 months Propranolol 10 mg BID- as BP/Hr allows Start lactulose 20 mg p.o. BID titrate to 3 BMs per day/Xifaxan 550 mg p.o. twice daily Patient seen in collaboration with Dr. Chang Subjective: Course reviewed with nursing staff Patient interviewed and examined All labs, imaging and other results reviewed Patient with increased agitation and confusion Currently sitter at bedside. Pt is tolerating clear liquid diet Maintain close observation, will check ammonia level and start Xifaxan/lactulose PHYSICAL EXAMINATION: GENERAL: Lethargic, sister at bedside, soft restraints in place SKIN: No lesions EARS/NOSE AND THROAT: Ears normal, nose normal NECK: Supple, no masses CHEST: Inspection within normal limits. CARDIOVASCULAR: Heart: Regular rate and rhythm RESPIRATORY: Lungs clear to auscultation and percussion, no wheezing, no rubs GASTROINTESTINAL AND LIVER: Abdomen: Soft, upper abd tenderness- improved, slightly distended, no hernias, no masses, no organomegaly, no guarding, no rebound tenderness, normoactive bowel sounds. Rectal: Deferred. EXTREMITIES: No cyanosis, clubbing or edema. Result Diagram: 06/22/18 0505 06/22/18 0505 Results 24hrs Laboratory Tests Test 06/22/18 05:02 06/22/18 05:05 Ethyl Alcohol Level < 10.0 H White Blood Count 2.3 L Red Blood Count 4.39 L Hemoglobin 11.0 L Hematocrit 34.5 L Mean Corpuscular Volume 78.6 L Mean Corpuscular Hemoglobin 25.1 L Mean Corpuscular Hemoglobin Concent 31.9 L Red Cell Distribution Width 18.9 H Platelet Count 38 L Mean Platelet Volume Immature Granulocytes % 0.000 L Neutrophils % 64.5 Lymphocytes % 16.7 Monocytes % 15.8 H Eosinophils % 2.1 Basophils % 0.9 Nucleated Red Blood Cells % 0.0 Immature Granulocytes # 0.000 Neutrophils # 1.5 L Lymphocytes # 0.4 L Monocytes # 0.4 Eosinophils # 0.1 Basophils # 0.0 Nucleated Red Blood Cells # 0.0 Sodium Level 138 Potassium Level 3.2 L Chloride Level 101 Carbon Dioxide Level 23 Anion Gap 14 H Blood Urea Nitrogen 9 Creatinine 0.54 L Est Glomerular Filtrat Rate mL/min > 60 Glucose Level 105 Calcium Level 8.8 Total Bilirubin 2.5 H Direct Bilirubin 0.20 Indirect Bilirubin 2.3 H Aspartate Amino Transf (AST/SGOT) 101 H Alanine Aminotransferase (ALT/SGPT) 72 H Alkaline Phosphatase 232 H Total Protein 9.0 H Albumin 4.1 Globulin 4.90 H Albumin/Globulin Ratio 0.83 Exam/Review of Systems Exam Vitals Vital Signs Date Temp Pulse Resp B/P (MAP) Pulse Ox O2 O2 Flow FiO2 Time Delivery Rate 06/22/18 99.8 97 18 146/85 97 12:00 (105) 06/22/18 Room Air 04:00 Intake and Output 06/21/18 06/21/18 06/22/18 1515:00 23:00 07:00 IntakeIntake Total 2522 ml 930 ml OutputOutput Total 1225 ml 1500 ml BalanceBalance 1297 ml -570 ml Results Results 24hrs Laboratory Tests Test 06/22/18 05:02 06/22/18 05:05 Ethyl Alcohol Level < 10.0 H White Blood Count 2.3 L Red Blood Count 4.39 L Hemoglobin 11.0 L Hematocrit 34.5 L Mean Corpuscular Volume 78.6 L Mean Corpuscular Hemoglobin 25.1 L Mean Corpuscular Hemoglobin Concent 31.9 L Red Cell Distribution Width 18.9 H Platelet Count 38 L Mean Platelet Volume Immature Granulocytes % 0.000 L Neutrophils % 64.5 Lymphocytes % 16.7 Monocytes % 15.8 H Eosinophils % 2.1 Basophils % 0.9 Nucleated Red Blood Cells % 0.0 Immature Granulocytes # 0.000 Neutrophils # 1.5 L Lymphocytes # 0.4 L Monocytes # 0.4 Eosinophils # 0.1 Basophils # 0.0 Nucleated Red Blood Cells # 0.0 Sodium Level 138 Potassium Level 3.2 L Chloride Level 101 Carbon Dioxide Level 23 Anion Gap 14 H Blood Urea Nitrogen 9 Creatinine 0.54 L Est Glomerular Filtrat Rate mL/min > 60 Glucose Level 105 Calcium Level 8.8 Total Bilirubin 2.5 H Direct Bilirubin 0.20 Indirect Bilirubin 2.3 H Aspartate Amino Transf (AST/SGOT) 101 H Alanine Aminotransferase (ALT/SGPT) 72 H Alkaline Phosphatase 232 H Total Protein 9.0 H Albumin 4.1 Globulin 4.90 H Albumin/Globulin Ratio 0.83 Medications Medication Current Medications IV Flush (NS 3 ml) 3 ml PER PROTOCOL IV ; Start 06/17/18 at 15:30 Multivitamins 10 ml/Thiamine HCl 100 mg/Folic Acid 1 mg/Sodium Chloride 1,011.2 ml @ 125 mls/ hr DAILY@09 IVPB Last administered on 06/22/18 08:09; Admin Dose 125 MLS/HR; Start 06/18/18 at 09:00 Lorazepam (Ativan) 2 mg Q10MIN PRN IV seizure; Start 06/17/18 at 15:30 Lorazepam (Ativan) 1 mg Q6H IV Last administered on 06/22/18 09:34; Admin Dose 1 MG; Start 06/17/18 at 16:00 Ondansetron HCl (Zofran Inj) 4 mg Q6H PRN IV NAUSEA AND/OR VOMITING Last administered on 06/21/18 18:52; Admin Dose 4 MG; Start 06/18/18 at 11:00 Labetalol HCl (Labetalol) 10 mg Q4H PRN IV SBP > 160 Last administered on 06/18/18 12:26; Admin Dose 10 MG; Start 06/18/18 at 12:30 Acetaminophen (Tylenol Tab) 650 mg Q6H PRN PO MILD PAIN(1-3)OR ELEVATED TEMP Last administered on 06/21/18 12:05; Admin Dose 650 MG; Start 06/19/18 at 17:30 Propranolol HCl (Inderal) 10 mg BID PO Last administered on 3/7/19at 08:09; Admin Dose 10 MG; Start 06/22/18 at 09:00 Chlordiazepoxide (Librium) 50 mg TID PO Last administered on 06/22/18at 12:09; Admin Dose 50 MG; Start 06/22/18 at 09:00 Potassium Chloride/Dextrose/ Sod Cl 1,000 ml @ 75 mls/hr [id number] IV ; Start 06/22/18 at 10:00 Lorazepam (Ativan) 2 mg Q2H PRN IV FOR SEVERE AGITATION; Start 06/22/18 at 12:00 Morphine Sulfate (morphine) 2 mg Q4H PRN IV SEVERE PAIN LEVEL 7-10; Start 06/22/18 at 12:00 Pantoprazole (Protonix Iv) 40 mg BID@06,18 IV ; Start 06/22/18 at 18:00 Lorazepam (Ativan) 4 mg Q4H PRN IV Debbie Wood; Start 06/22/18 at 10:30 MANNY HURT Jun 22, 2018 13:11
[2018-06-22] MEDS ORDERED: PANTOPRAZOLE 40 MG INJ ONE (16:57)
[2018-06-22] MEDS: PANTOPRAZOLE 40 MG INJ IV SCH (17:02)
[2018-06-22] MEDS: D5W-0.45 NACL + KCL 20 MEQ 1,000 ML IV SCH ×2 (17:02→23:20)
[2018-06-22] MEDS: LACTULOSE 30ML CUP PO SCH (21:32)
[2018-06-22] MEDS: RIFAXIMIN 550 MG TAB PO SCH (21:34)
[2018-06-23] VITALS (14 sets, daily range): BP systolic 110–141; BP diastolic 56–78; PULSE 73–93; RESP 18–20
[2018-06-23] MEDS: LORAZEPAM 2 MG INJ IV SCH ×4 (04:15→22:05)
[2018-06-23] MEDS: PANTOPRAZOLE 40 MG INJ IV SCH ×2 (06:00→17:55)
--- NOTE | 2018-06-23 08:53 | PN ---
Date/Time of Note Date/Time of Note DATE: 06/23/18 TIME: 08:53 Assessment/Plan VTE Prophylaxis Risk score ([place] [facility] [place] risk: 5 SCD applied (from [facility] [place] Yes Pharmacological prophylaxis: NA/contraindicated Pharm contraindication: thrombocytopenia Lines/Catheters IV [facility]ter Type (from [facility]): Peripheral IV Urinary Cath still in place: No Assessment/Plan Assessment/Plan 1. Acute toxic encephalopathy - most likely secondary to alcohol withdrawal and sedative medications - continue to monitor for improvement in mentation 2. Acute alcohol intoxication and withdrawal - Ativan and Librium on board and PRN doses on board as well - IVF on board 3. Pancytopenia- stable - Baseline in setting of liver cirrhosis - seen by hematology last year and appears that patient has chronic thrombocytopenia with drop in platelets after every alcohol binge where he gets admitted. - no active bleeding 4. Chronic debility and lower extremity weakness - Chronic, likely at baseline, patient not able to ambulate when attempted to be discharged by ED physician, this is baseline for patient - PT/OT 5. Alcohol abuse - monitor for DTs - Ativan on board 6. Acute GI bleed - GI on board and appreciate consultation. EGD showed varices requiring banding 7. Alcoholic liver cirrhosis with h/o grade 3 or 4 esophageal varices - Patient does not appear to be on any medication as he is homeless and noncompliant - propranolol on board - PPI daily 8. Acute pancreatitis - advancing diet as tolerated 9. Disposition - Continue monitoring for improvement in mentation - When back to baseline, will d/c Result Diagram: 06/23/18 0605 06/23/18 0605 Results 24hrs Laboratory Tests Test 06/22/18 14:15 06/23/18 06:05 Ammonia 28 White Blood Count 4.6 #L Red Blood Count 4.62 L Hemoglobin 11.8 L Hematocrit 36.7 L Mean Corpuscular Volume 79.4 L Mean Corpuscular Hemoglobin 25.5 L Mean Corpuscular Hemoglobin Concent 32.2 Red Cell Distribution Width 19.9 H Platelet Count 50 #L Mean Platelet Volume Immature Granulocytes % 0.400 Neutrophils % 68.9 Lymphocytes % 18.2 Monocytes % 11.4 H Eosinophils % 0.7 Basophils % 0.4 Nucleated Red Blood Cells % 0.0 Immature Granulocytes # 0.020 Neutrophils # 3.1 Lymphocytes # 0.8 Monocytes # 0.5 Eosinophils # 0.0 Basophils # 0.0 Nucleated Red Blood Cells # 0.0 Sodium Level 141 Potassium Level 3.3 L Chloride Level 106 Carbon Dioxide Level 22 Anion Gap 13 Blood Urea Nitrogen 19 # Creatinine 0.60 L Est Glomerular Filtrat Rate mL/min > 60 Glucose Level 101 Calcium Level 8.8 Magnesium Level 1.7 Total Bilirubin 3.6 H Direct Bilirubin 0.90 #H Indirect Bilirubin 2.7 H Aspartate Amino Transf (AST/SGOT) 140 H Alanine Aminotransferase (ALT/SGPT) 67 Alkaline Phosphatase 193 H Total Protein 8.0 # Albumin 3.5 Globulin 4.50 H Albumin/Globulin Ratio 0.77 Subjective 24 Hr Interval Summary Free Text/Dictation Patient still agitated and sleeping this am after given sedatives. No further episodes of GI bleeding. Exam/Review of Systems Exam Vitals Vital Signs Date Temp Pulse Resp B/P (MAP) Pulse Ox O2 O2 Flow FiO2 Time Delivery Rate 06/23/18 98.2 81 19 117/58 98 08:00 (77) 06/22/18 Room Air 04:00 Intake and Output 06/22/18 06/22/18 06/23/18 1515:00 23:00 07:00 IntakeIntake Total 160 ml 1400 ml OutputOutput Total 450 ml BalanceBalance 160 ml 950 ml Exam General: Patient is laying in bed, snoring loudly Neck: Supple Respiratory: Clear to auscultation bilaterally. no wheezing Cardiovascular: regular rate and rhythm, no obvious murmurs Gastrointestinal: soft, nontender to palpation, nondistended, bowel sounds heard. Neurological: Moves all extremities spontaneously Skin: No new skin lesions Results Results 24hrs Laboratory Tests Test 06/22/18 14:15 06/23/18 06:05 Ammonia 28 White Blood Count 4.6 #L Red Blood Count 4.62 L Hemoglobin 11.8 L Hematocrit 36.7 L Mean Corpuscular Volume 79.4 L Mean Corpuscular Hemoglobin 25.5 L Mean Corpuscular Hemoglobin Concent 32.2 Red Cell Distribution Width 19.9 H Platelet Count 50 #L Mean Platelet Volume Immature Granulocytes % 0.400 Neutrophils % 68.9 Lymphocytes % 18.2 Monocytes % 11.4 H Eosinophils % 0.7 Basophils % 0.4 Nucleated Red Blood Cells % 0.0 Immature Granulocytes # 0.020 Neutrophils # 3.1 Lymphocytes # 0.8 Monocytes # 0.5 Eosinophils # 0.0 Basophils # 0.0 Nucleated Red Blood Cells # 0.0 Sodium Level 141 Potassium Level 3.3 L Chloride Level 106 Carbon Dioxide Level 22 Anion Gap 13 Blood Urea Nitrogen 19 # Creatinine 0.60 L Est Glomerular Filtrat Rate mL/min > 60 Glucose Level 101 Calcium Level 8.8 Magnesium Level 1.7 Total Bilirubin 3.6 H Direct Bilirubin 0.90 #H Indirect Bilirubin 2.7 H Aspartate Amino Transf (AST/SGOT) 140 H Alanine Aminotransferase (ALT/SGPT) 67 Alkaline Phosphatase 193 H Total Protein 8.0 # Albumin 3.5 Globulin 4.50 H Albumin/Globulin Ratio 0.77 Medications Medication Current Medications IV Flush (NS 3 ml) 3 ml PER PROTOCOL IV ; Start 06/17/18 at 15:30 Multivitamins 10 ml/Thiamine HCl 100 mg/Folic Acid 1 mg/Sodium Chloride 1,011.2 ml @ 125 mls/ hr DAILY@09 IVPB Last administered on 06/22/18 08:09; Admin Dose 125 MLS/HR; Start 06/18/18 at 09:00 Lorazepam (Ativan) 2 mg Q10MIN PRN IV seizure; Start 06/17/18 at 15:30 Lorazepam (Ativan) 1 mg Q6H IV Last administered on 06/23/18 04:15; Admin Dose 1 MG; Start 06/17/18 at 16:00 Ondansetron HCl (Zofran Inj) 4 mg Q6H PRN IV NAUSEA AND/OR VOMITING Last administered on 06/21/18 18:52; Admin Dose 4 MG; Start 06/18/18 at 11:00 Labetalol HCl (Labetalol) 10 mg Q4H PRN IV SBP > 160 Last administered on 06/18/18at 12:26; Admin Dose 10 MG; Start 06/18/18 at 12:30 Acetaminophen (Tylenol Tab) 650 mg Q6H PRN PO MILD PAIN(1-3)OR ELEVATED TEMP Last administered on 06/21/18at 12:05; Admin Dose 650 MG; Start 06/19/18 at 17:30 Propranolol HCl (Inderal) 10 mg BID PO Last administered on 06/22/18at 21:33; Admin Dose 10 MG; Start 06/22/18 at 09:00 Chlordiazepoxide (Librium) 50 mg TID PO Last administered on 06/22/18 21:36; Admin Dose 50 MG; Start 06/22/18 at 09:00 Potassium Chloride/Dextrose/ Sod Cl 1,000 ml @ 75 mls/hr [id number] IV Last administered on 06/22/18 17:02; Admin Dose 75 MLS/HR; Start 06/22/18 at 10:00 Lorazepam (Ativan) 2 mg Q2H PRN IV FOR SEVERE AGITATION; Start 06/22/18 at 12:00 Morphine Sulfate (morphine) 2 mg Q4H PRN IV SEVERE PAIN LEVEL 7-10; Start 06/22/18 at 12:00 Pantoprazole (Protonix Iv) 40 mg BID@06,18 IV Last administered on 06/22/18 17:02; Admin Dose 40 MG; Start 06/22/18 at 18:00 Lorazepam (Ativan) 4 mg Q4H PRN IV Delerium Tremens Last administered on 06/22/18 14:36; Admin Dose 4 MG; Start 06/22/18 at 10:30 Rifaximin (Xifaxan) 550 mg BID PO Last administered on 06/22/18 21:34; Admin Dose 550 MG; Start 06/22/18 at 21:00 Lactulose (Enulose) 20 gm BID PO Last administered on 06/22/18 21:32; Admin Dose 20 GM; Start 06/22/18 at 21:00 LAVERN NJ MD Jun 23, 2018 08:53
[2018-06-23] MEDS: MULTIVITAMINS 10 ML, THIAMINE 100 MG, FOLIC ACID 1 MG in SOD CHLORIDE 0.9% 1,000 ML IVPB SCH (09:14)
[2018-06-23] MEDS: CHLORDIAZEPOXIDE 25 MG CAP PO SCH ×3 (09:21→22:04)
[2018-06-23] MEDS: RIFAXIMIN 550 MG TAB PO SCH ×2 (09:21→22:04)
[2018-06-23] MEDS: LACTULOSE 30ML CUP PO SCH ×2 (09:21→22:03)
[2018-06-23] MEDS: PROPRANOLOL 10 MG TAB PO SCH ×2 (09:23→21:00)
[2018-06-23] MEDS ORDERED: POTASSIUM CHLORIDE 100 ML IVPB ONE (10:00)
[2018-06-23] MEDS: D5W-0.45 NACL + KCL 20 MEQ 1,000 ML IV SCH (11:30)
--- NOTE | 2018-06-23 14:14 | PN ---
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, post EBL x3 Small fundal gastric varices Portal gastropathy Otherwise normal EGD ETOH withdrawal Hepatic encephalopathy Elevated LFTs with direct hyperbilirubinemia (2/2 to progressive liver disease) -MRCP No evidence of biliary duct obstruction Alcoholic liver cirrhosis - DF on admission 22.6 Pancytopenia- likely 2/2 to bone arrow suppression r/t excessive ETOH abuse Elevated lipase -resolved -MRCP- pancreas not well visualized Hepatitis serology is negative Plan: Advance diet to soft Increase lactulose to 30 mg twice daily PPI BID Repeat EGD/EVL in 3 months Continue propranolol 10 mg BID- as BP/Hr allows Continue lactulose 20 mg p.o. BID titrate to 3 BMs per day/Xifaxan 550 mg p.o. twice daily Patient seen in collaboration with Dr. Murphy Subjective: Course reviewed with nursing staff Patient interviewed and examined All labs, imaging and other results reviewed Patient is confused and lethargic. Patient had one bowel movement today on lactulose. Will increase the lactulose to 30 mg twice daily. Patient is tolerating full liquid diet well. Will advance diet to soft. Recommend repeat EGD in 3 months for esophageal varices treatment. Continue observation. PHYSICAL EXAMINATION: GENERAL: Lethargic, confused, soft restraints in place SKIN: No lesions EARS/NOSE AND THROAT: Ears normal, nose normal NECK: Supple, no masses CHEST: Inspection within normal limits. CARDIOVASCULAR: Heart: Regular rate and rhythm RESPIRATORY: Lungs clear to auscultation and percussion, no wheezing, no rubs GASTROINTESTINAL AND LIVER: Abdomen: Soft, no tenderness, non-distended, no hernias, no masses, no organomegaly, no guarding, no rebound tenderness, normoactive bowel sounds. Rectal: Deferred. EXTREMITIES: No cyanosis, clubbing or edema. Result Diagram: 3/8/19 0605 3/8/19 0605 Results 24hrs Laboratory Tests Test 06/22/18 14:15 06/23/18 06:05 Ammonia 28 White Blood Count 4.6 #L Red Blood Count 4.62 L Hemoglobin 11.8 L Hematocrit 36.7 L Mean Corpuscular Volume 79.4 L Mean Corpuscular Hemoglobin 25.5 L Mean Corpuscular Hemoglobin Concent 32.2 Red Cell Distribution Width 19.9 H Platelet Count 50 #L Mean Platelet Volume Immature Granulocytes % 0.400 Neutrophils % 68.9 Lymphocytes % 18.2 Monocytes % 11.4 H Eosinophils % 0.7 Basophils % 0.4 Nucleated Red Blood Cells % 0.0 Immature Granulocytes # 0.020 Neutrophils # 3.1 Lymphocytes # 0.8 Monocytes # 0.5 Eosinophils # 0.0 Basophils # 0.0 Nucleated Red Blood Cells # 0.0 Sodium Level 141 Potassium Level 3.3 L Chloride Level 106 Carbon Dioxide Level 22 Anion Gap 13 Blood Urea Nitrogen 19 # Creatinine 0.60 L Est Glomerular Filtrat Rate mL/min > 60 Glucose Level 101 Calcium Level 8.8 Magnesium Level 1.7 Total Bilirubin 3.6 H Direct Bilirubin 0.90 #H Indirect Bilirubin 2.7 H Aspartate Amino Transf (AST/SGOT) 140 H Alanine Aminotransferase (ALT/SGPT) 67 Alkaline Phosphatase 193 H Total Protein 8.0 # Albumin 3.5 Globulin 4.50 H Albumin/Globulin Ratio 0.77 CC: DAVONTE MURPHY MD ; Exam/Review of Systems Exam Vitals Vital Signs Date Temp Pulse Resp B/P (MAP) Pulse Ox O2 O2 Flow FiO2 Time Delivery Rate 06/23/18 88 12:01 06/23/18 98.4 19 110/56 94 11:05 (74) 06/22/18 Room Air 04:00 Intake and Output 06/22/18 06/22/18 06/23/18 1414:59 22:59 06:59 IntakeIntake Total 160 ml 1400 ml OutputOutput Total 450 ml BalanceBalance 160 ml 950 ml Results Results 24hrs Laboratory Tests Test 06/22/18 14:15 06/23/18 06:05 Ammonia 28 White Blood Count 4.6 #L Red Blood Count 4.62 L Hemoglobin 11.8 L Hematocrit 36.7 L Mean Corpuscular Volume 79.4 L Mean Corpuscular Hemoglobin 25.5 L Mean Corpuscular Hemoglobin Concent 32.2 Red Cell Distribution Width 19.9 H Platelet Count 50 #L Mean Platelet Volume Immature Granulocytes % 0.400 Neutrophils % 68.9 Lymphocytes % 18.2 Monocytes % 11.4 H Eosinophils % 0.7 Basophils % 0.4 Nucleated Red Blood Cells % 0.0 Immature Granulocytes # 0.020 Neutrophils # 3.1 Lymphocytes # 0.8 Monocytes # 0.5 Eosinophils # 0.0 Basophils # 0.0 Nucleated Red Blood Cells # 0.0 Sodium Level 141 Potassium Level 3.3 L Chloride Level 106 Carbon Dioxide Level 22 Anion Gap 13 Blood Urea Nitrogen 19 # Creatinine 0.60 L Est Glomerular Filtrat Rate mL/min > 60 Glucose Level 101 Calcium Level 8.8 Magnesium Level 1.7 Total Bilirubin 3.6 H Direct Bilirubin 0.90 #H Indirect Bilirubin 2.7 H Aspartate Amino Transf (AST/SGOT) 140 H Alanine Aminotransferase (ALT/SGPT) 67 Alkaline Phosphatase 193 H Total Protein 8.0 # Albumin 3.5 Globulin 4.50 H Albumin/Globulin Ratio 0.77 Medications Medication Current Medications IV Flush (NS 3 ml) 3 ml PER PROTOCOL IV ; Start 06/17/18 at 15:30 Multivitamins 10 ml/Thiamine HCl 100 mg/Folic Acid 1 mg/Sodium Chloride 1,011.2 ml @ 125 mls/ hr DAILY@09 IVPB Last administered on 06/23/18 09:14; Admin Dose 125 MLS/HR; Start 06/18/18 at 09:00 Lorazepam (Ativan) 2 mg Q10MIN PRN IV seizure; Start 06/17/18 at 15:30 Lorazepam (Ativan) 1 mg Q6H IV Last administered on 06/23/18 04:15; Admin Dose 1 MG; Start 06/17/18 at 16:00 Ondansetron HCl (Zofran Inj) 4 mg Q6H PRN IV NAUSEA AND/OR VOMITING Last administered on 06/21/18 18:52; Admin Dose 4 MG; Start 06/18/18 at 11:00 Labetalol HCl (Labetalol) 10 mg Q4H PRN IV SBP > 160 Last administered on 06/18/18 12:26; Admin Dose 10 MG; Start 06/18/18 at 12:30 Acetaminophen (Tylenol Tab) 650 mg Q6H PRN PO MILD PAIN(1-3)OR ELEVATED TEMP Last administered on 06/21/18 12:05; Admin Dose 650 MG; Start 06/19/18 at 17:30 Propranolol HCl (Inderal) 10 mg BID PO Last administered on 06/23/18 09:23; Admin Dose 10 MG; Start 06/22/18 at 09:00 Chlordiazepoxide (Librium) 50 mg TID PO Last administered on 06/23/18 09:21; Admin Dose 50 MG; Start 06/22/18 at 09:00 Potassium Chloride/Dextrose/ Sod Cl 1,000 ml @ 75 mls/hr [id number] IV Last administered on 06/22/18 17:02; Admin Dose 75 MLS/HR; Start 06/22/18 at 10:00 Lorazepam (Ativan) 2 mg Q2H PRN IV FOR SEVERE AGITATION; Start 06/22/18 at 12:00 Morphine Sulfate (morphine) 2 mg Q4H PRN IV SEVERE PAIN LEVEL 7-10; Start 06/22/18 at 12:00 Pantoprazole (Protonix Iv) 40 mg BID@06,18 IV Last administered on 06/22/18 17:02; Admin Dose 40 MG; Start 06/22/18 at 18:00 Lorazepam (Ativan) 4 mg Q4H PRN IV Delerium Tremens Last administered on 06/22/18 14:36; Admin Dose 4 MG; Start 06/22/18 at 10:30 Rifaximin (Xifaxan) 550 mg BID PO Last administered on 06/23/18 09:21; Admin Dose 550 MG; Start 06/22/18 at 21:00 Lactulose (Enulose) 20 gm BID PO Last administered on 06/23/18 09:21; Admin Dose 20 GM; Start 06/22/18 at 21:00 FRANKLIN LIN NP Jun 23, 2018 14:14
[2018-06-24] VITALS (9 sets, daily range): BP systolic 109–124; BP diastolic 55–74; PULSE 75–88; RESP 18–20
[2018-06-24] MEDS: D5W-0.45 NACL + KCL 20 MEQ 1,000 ML IV SCH (02:00)
[2018-06-24] MEDS: LORAZEPAM 2 MG INJ IV SCH ×4 (06:15→22:00)
[2018-06-24] MEDS: PANTOPRAZOLE 40 MG INJ IV SCH ×2 (06:16→17:26)
--- NOTE | 2018-06-24 08:45 | PN ---
Date/Time of Note Date/Time of Note DATE: 06/24/18 TIME: 08:45 Assessment/Plan VTE Prophylaxis Risk score (from [facility])>0 risk: 3 SCD applied (from [facility]): Yes Pharmacological prophylaxis: NA/contraindicated Pharm contraindication: thrombocytopenia Lines/Catheters IV [facility]ter [facility] (from [facility]): Peripheral IV Urinary Cath still in place: No Assessment/Plan Assessment/Plan 1. Acute toxic encephalopathy - mildly improved this am but still with confusion and pulling at lines/catheter - most likely secondary to alcohol withdrawal - continue to monitor for improvement in mentation 2. Acute alcohol intoxication and withdrawal - Ativan and Librium on board and will continue to taper 3. Pancytopenia- stable - Baseline in setting of liver cirrhosis - seen by hematology last year and appears that patient has chronic thrombocytopenia with drop in platelets after every alcohol binge where he gets admitted. - no active bleeding 4. Chronic debility and lower extremity weakness - Chronic, likely at baseline, patient not able to ambulate when attempted to be discharged by ED physician, this is baseline for patient - PT/OT 5. Alcohol abuse - monitor for DTs - Ativan on board 6. Acute GI bleed - GI on board and appreciate consultation. EGD showed varices requiring banding 7. Alcoholic liver cirrhosis with h/o grade 3 or 4 esophageal varices - Patient does not appear to be on any medication as he is homeless and noncompliant - propranolol on board - PPI daily 8. Acute pancreatitis - advancing diet as tolerated 9. Disposition - Continue monitoring for improvement in mentation - Discussed with family need for alcohol cessation and discussed need for rehab once stable for discharge Result Diagram: 06/24/18 0559 06/24/18 0559 Results 24hrs Laboratory Tests Test 06/24/18 05:59 White Blood Count 2.4 #L Red Blood Count 4.45 L Hemoglobin 11.3 L Hematocrit 36.4 L Mean Corpuscular Volume 81.8 L Mean Corpuscular Hemoglobin 25.4 L Mean Corpuscular Hemoglobin Concent 31.0 L Red Cell Distribution Width 20.1 H Platelet Count 36 #L Mean Platelet Volume Immature Granulocytes % 0.800 H Neutrophils % 44.1 Lymphocytes % 32.2 Monocytes % 19.1 H Eosinophils % 3.0 Basophils % 0.8 Nucleated Red Blood Cells % 0.0 Immature Granulocytes # 0.020 Neutrophils # 1.0 L Lymphocytes # 0.8 Monocytes # 0.5 Eosinophils # 0.1 Basophils # 0.0 Nucleated Red Blood Cells # 0.0 Sodium Level 142 Potassium Level 3.3 L Chloride Level 108 Carbon Dioxide Level 24 Anion Gap 10 Blood Urea Nitrogen 24 H Creatinine 0.83 Est Glomerular Filtrat Rate mL/min > 60 Glucose Level 96 Calcium Level 8.5 Magnesium Level 1.9 Total Bilirubin 1.9 H Direct Bilirubin 0.10 # Indirect Bilirubin 1.8 H Aspartate Amino Transf (AST/SGOT) 113 H Alanine Aminotransferase (ALT/SGPT) 61 Alkaline Phosphatase 170 H Total Protein 7.5 Albumin 3.1 L Globulin 4.40 H Albumin/Globulin Ratio 0.70 Subjective 24 Hr Interval Summary Free Text/Dictation Patient still remains slightly confused this am requiring restraints. Per nursing, patient still pulling at lines and catheters. Family at bedside and discussed importance of alcohol cessation and they posed the questions of getting him to alcohol rehab. Exam/Review of Systems Exam Vitals Vital Signs Date Temp Pulse Resp B/P (MAP) Pulse Ox O2 O2 Flow FiO2 Time Delivery Rate 06/24/18 98.3 77 18 110/66 Room Air 08:13 (81) 06/24/18 97 04:00 Intake and Output 06/23/18 06/23/18 06/24/18 1515:00 23:00 07:00 IntakeIntake Total 100 ml 400 ml OutputOutput Total 800 ml BalanceBalance 100 ml -400 ml Exam General: Patient is laying in bed, no acute distress. asking for restraints to be removed Neck: Supple Respiratory: Clear to auscultation bilaterally. no wheezing Cardiovascular: regular rate and rhythm, no obvious murmurs Gastrointestinal: soft, nontender to palpation, nondistended, bowel sounds heard. Neurological: Moves all extremities spontaneously Skin: No new skin lesions Results Results 24hrs Laboratory Tests Test 06/24/18 05:59 White Blood Count 2.4 #L Red Blood Count 4.45 L Hemoglobin 11.3 L Hematocrit 36.4 L Mean Corpuscular Volume 81.8 L Mean Corpuscular Hemoglobin 25.4 L Mean Corpuscular Hemoglobin Concent 31.0 L Red Cell Distribution Width 20.1 H Platelet Count 36 #L Mean Platelet Volume Immature Granulocytes % 0.800 H Neutrophils % 44.1 Lymphocytes % 32.2 Monocytes % 19.1 H Eosinophils % 3.0 Basophils % 0.8 Nucleated Red Blood Cells % 0.0 Immature Granulocytes # 0.020 Neutrophils # 1.0 L Lymphocytes # 0.8 Monocytes # 0.5 Eosinophils # 0.1 Basophils # 0.0 Nucleated Red Blood Cells # 0.0 Sodium Level 142 Potassium Level 3.3 L Chloride Level 108 Carbon Dioxide Level 24 Anion Gap 10 Blood Urea Nitrogen 24 H Creatinine 0.83 Est Glomerular Filtrat Rate mL/min > 60 Glucose Level 96 Calcium Level 8.5 Magnesium Level 1.9 Total Bilirubin 1.9 H Direct Bilirubin 0.10 # Indirect Bilirubin 1.8 H Aspartate Amino Transf (AST/SGOT) 113 H Alanine Aminotransferase (ALT/SGPT) 61 Alkaline Phosphatase 170 H Total Protein 7.5 Albumin 3.1 L Globulin 4.40 H Albumin/Globulin Ratio 0.70 Medications Medication Current Medications IV Flush (NS 3 ml) 3 ml PER PROTOCOL IV ; Start 06/17/18 at 15:30 Multivitamins 10 ml/Thiamine HCl 100 mg/Folic Acid 1 mg/Sodium Chloride 1,011.2 ml @ 125 mls/ hr DAILY@09 IVPB Last administered on 06/23/18 09:14; Admin Dose 125 MLS/HR; Start 06/18/18 at 09:00 Lorazepam (Ativan) 2 mg Q10MIN PRN IV seizure; Start 06/17/18 at 15:30 Lorazepam (Ativan) 1 mg Q6H IV Last administered on 06/24/18 06:15; Admin Dose 1 MG; Start 06/17/18 at 16:00 Ondansetron HCl (Zofran Inj) 4 mg Q6H PRN IV NAUSEA AND/OR VOMITING Last administered on 06/21/18 18:52; Admin Dose 4 MG; Start 06/18/18 at 11:00 Labetalol HCl (Labetalol) 10 mg Q4H PRN IV SBP > 160 Last administered on 06/18/18 12:26; Admin Dose 10 MG; Start 06/18/18 at 12:30 Acetaminophen (Tylenol Tab) 650 mg Q6H PRN PO MILD PAIN(1-3)OR ELEVATED TEMP Last administered on 06/21/18 12:05; Admin Dose 650 MG; Start 06/19/18 at 17:30 Propranolol HCl (Inderal) 10 mg BID PO Last administered on 06/23/18 09:23; Admin Dose 10 MG; Start 06/22/18 at 09:00 Chlordiazepoxide (Librium) 50 mg TID PO Last administered on 06/23/18 22:04; Admin Dose 50 MG; Start 06/22/18 at 09:00 Potassium Chloride/Dextrose/ Sod Cl 1,000 ml @ 75 mls/hr [id number] IV Last administered on 06/24/18 02:00; Admin Dose 75 MLS/HR; Start 06/22/18 at 10:00 Lorazepam (Ativan) 2 mg Q2H PRN IV FOR SEVERE AGITATION; Start 06/22/18 at 12:00 Morphine Sulfate (morphine) 2 mg Q4H PRN IV SEVERE PAIN LEVEL 7-10; Start 06/22/18 at 12:00 Pantoprazole (Protonix Iv) 40 mg BID@06,18 IV Last administered on 06/24/18 06:16; Admin Dose 40 MG; Start 06/22/18 at 18:00 Lorazepam (Ativan) 4 mg Q4H PRN IV Delerium Tremens Last administered on 06/22/18at 14:36; Admin Dose 4 MG; Start 06/22/18 at 10:30 Rifaximin (Xifaxan) 550 mg BID PO Last administered on 06/23/18 22:04; Admin Dose 550 MG; Start 06/22/18 at 21:00 Lactulose (Enulose) 30 gm BID PO Last administered on 06/23/18 22:03; Admin Dose 30 GM; Start 06/23/18 at 21:00 LAVERN NJ MD Jun 24, 2018 08:45
[2018-06-24] MEDS: MULTIVITAMINS 10 ML, THIAMINE 100 MG, FOLIC ACID 1 MG in SOD CHLORIDE 0.9% 1,000 ML IVPB SCH ×2 (09:00→13:39)
[2018-06-24] MEDS: RIFAXIMIN 550 MG TAB PO SCH ×2 (09:14→20:09)
[2018-06-24] MEDS: LACTULOSE 30ML CUP PO SCH ×2 (09:14→20:21)
[2018-06-24] MEDS: CHLORDIAZEPOXIDE 25 MG CAP PO SCH ×3 (09:14→20:09)
[2018-06-24] MEDS: PROPRANOLOL 10 MG TAB PO SCH ×2 (09:15→20:10)
[2018-06-24] MEDS: POTASSIUM CHLORIDE 100 ML IVPB SCH ×2 (09:24→11:26)
[2018-06-24] MEDS: ACETAMINOPHEN 325 MG TAB PO PRN (12:21)
--- NOTE | 2018-06-24 14:56 | PN ---
Date/Time of Note Date/Time of Note DATE: 06/24/18 TIME: 14:48 Assessment/Plan VTE Prophylaxis Risk score (from Ns)>0 risk: 4 SCD applied (from [facility] [place]): Yes Pharmacological prophylaxis: NA/contraindicated Pharm contraindication: bleeding Lines/Catheters IV [facility]ter Type (from [facility]): Peripheral IV Urinary Cath still in place: No Assessment/Plan Assessment/Plan Assessment: Hematemesis EGD 06/21/1819 Grade 3/4 esophageal varices, post EBL x3 Small fundal gastric varices Portal gastropathy Otherwise normal EGD ETOH withdrawal Hepatic encephalopathy Elevated LFTs with direct hyperbilirubinemia (2/2 to progressive liver disease) -MRCP No evidence of biliary duct obstruction Alcoholic liver cirrhosis - DF on admission 22.6 Pancytopenia- likely 2/2 to bone arrow suppression r/t excessive ETOH abuse Elevated lipase -resolved -MRCP- pancreas not well visualized Hepatitis serology is negative Plan: Continue soft diet Increase lactulose 30 mg three times daily titrate to 3 BMs per day PPI BID Repeat EGD/EVL in 3 months Continue propranolol 10 mg BID- as BP/Hr allows Xifaxan 550 mg p.o. twice daily Patient seen in collaboration with Dr. Murphy Subjective: Course reviewed with nursing staff Patient interviewed and examined All labs, imaging and other results reviewed Patient is confused and lethargic. Patient had one bowel movement today on lactulose. Will increase the lactulose to 30 mg twice daily. Patient is tolerating full liquid diet well. Will advance diet to soft. Recommend repeat EGD in 3 months for esophageal varices treatment. Continue observation. PHYSICAL EXAMINATION: GENERAL: Lethargic, confused, soft restraints in place SKIN: No lesions EARS/NOSE AND THROAT: Ears normal, nose normal NECK: Supple, no masses CHEST: Inspection within normal limits. CARDIOVASCULAR: Heart: Regular rate and rhythm RESPIRATORY: Lungs clear to auscultation and percussion, no wheezing, no rubs GASTROINTESTINAL AND LIVER: Abdomen: Soft, mild tenderness, non-distended, no hernias, no masses, no organomegaly, no guarding, no rebound tenderness, normoactive bowel sounds. Rectal: Deferred. EXTREMITIES: No cyanosis, clubbing or edema. Result Diagram: 06/24/18 0559 06/24/1859 Results 24hrs Laboratory Tests Test 06/24/18 05:59 White Blood Count 2.4 #L Red Blood Count 4.45 L Hemoglobin 11.3 L Hematocrit 36.4 L Mean Corpuscular Volume 81.8 L Mean Corpuscular Hemoglobin 25.4 L Mean Corpuscular Hemoglobin Concent 31.0 L Red Cell Distribution Width 20.1 H Platelet Count 36 #L Mean Platelet Volume Immature Granulocytes % 0.800 H Neutrophils % 44.1 Lymphocytes % 32.2 Monocytes % 19.1 H Eosinophils % 3.0 Basophils % 0.8 Nucleated Red Blood Cells % 0.0 Immature Granulocytes # 0.020 Neutrophils # 1.0 L Lymphocytes # 0.8 Monocytes # 0.5 Eosinophils # 0.1 Basophils # 0.0 Nucleated Red Blood Cells # 0.0 Sodium Level 142 Potassium Level 3.3 L Chloride Level 108 Carbon Dioxide Level 24 Anion Gap 10 Blood Urea Nitrogen 24 H Creatinine 0.83 Est Glomerular Filtrat Rate mL/min > 60 Glucose Level 96 Calcium Level 8.5 Magnesium Level 1.9 Total Bilirubin 1.9 H Direct Bilirubin 0.10 # Indirect Bilirubin 1.8 H Aspartate Amino Transf (AST/SGOT) 113 H Alanine Aminotransferase (ALT/SGPT) 61 Alkaline Phosphatase 170 H Total Protein 7.5 Albumin 3.1 L Globulin 4.40 H Albumin/Globulin Ratio 0.70 CC: DAVONTE MURPHY MD ; Exam/Review of Systems Exam Vitals Vital Signs Date Temp Pulse Resp B/P (MAP) Pulse Ox O2 O2 Flow FiO2 Time Delivery Rate 06/24/18 88 12:01 06/24/18 97.7 20 124/74 97 Room Air 12:00 (91) Intake and Output 06/23/18 06/23/18 06/24/18 1515:00 23:00 07:00 IntakeIntake Total 100 ml 400 ml OutputOutput Total 800 ml BalanceBalance 100 ml -400 ml Results Results 24hrs Laboratory Tests Test 06/24/18 05:59 White Blood Count 2.4 #L Red Blood Count 4.45 L Hemoglobin 11.3 L Hematocrit 36.4 L Mean Corpuscular Volume 81.8 L Mean Corpuscular Hemoglobin 25.4 L Mean Corpuscular Hemoglobin Concent 31.0 L Red Cell Distribution Width 20.1 H Platelet Count 36 #L Mean Platelet Volume Immature Granulocytes % 0.800 H Neutrophils % 44.1 Lymphocytes % 32.2 Monocytes % 19.1 H Eosinophils % 3.0 Basophils % 0.8 Nucleated Red Blood Cells % 0.0 Immature Granulocytes # 0.020 Neutrophils # 1.0 L Lymphocytes # 0.8 Monocytes # 0.5 Eosinophils # 0.1 Basophils # 0.0 Nucleated Red Blood Cells # 0.0 Sodium Level 142 Potassium Level 3.3 L Chloride Level 108 Carbon Dioxide Level 24 Anion Gap 10 Blood Urea Nitrogen 24 H Creatinine 0.83 Est Glomerular Filtrat Rate mL/min > 60 Glucose Level 96 Calcium Level 8.5 Magnesium Level 1.9 Total Bilirubin 1.9 H Direct Bilirubin 0.10 # Indirect Bilirubin 1.8 H Aspartate Amino Transf (AST/SGOT) 113 H Alanine Aminotransferase (ALT/SGPT) 61 Alkaline Phosphatase 170 H Total Protein 7.5 Albumin 3.1 L Globulin 4.40 H Albumin/Globulin Ratio 0.70 Medications Medication Current Medications IV Flush (NS 3 ml) 3 ml PER PROTOCOL IV ; Start 06/17/18 at 15:30 Multivitamins 10 ml/Thiamine HCl 100 mg/Folic Acid 1 mg/Sodium Chloride 1,011.2 ml @ 125 mls/ hr DAILY@09 IVPB Last administered on 06/24/18at 13:39; Admin Dose 125 MLS/HR; Start 06/18/18 at 09:00 Lorazepam (Ativan) 2 mg Q10MIN PRN IV seizure; Start 06/17/18 at 15:30 Ondansetron HCl (Zofran Inj) 4 mg Q6H PRN IV NAUSEA AND/OR VOMITING Last administered on 06/21/18 18:52; Admin Dose 4 MG; Start 06/18/18 at 11:00 Labetalol HCl (Labetalol) 10 mg Q4H PRN IV SBP > 160 Last administered on 06/18/18at 12:26; Admin Dose 10 MG; Start 06/18/18 at 12:30 Acetaminophen (Tylenol Tab) 650 mg Q6H PRN PO MILD PAIN(1-3)OR ELEVATED TEMP Last administered on 06/24/18 12:21; Admin Dose 650 MG; Start 06/19/18 at 17:30 Propranolol HCl (Inderal) 10 mg BID PO Last administered on 06/24/18 09:15; Admin Dose 10 MG; Start 06/22/18 at 09:00 Lorazepam (Ativan) 2 mg Q2H PRN IV FOR SEVERE AGITATION; Start 06/22/18 at 12:00 Morphine Sulfate (morphine) 2 mg Q4H PRN IV SEVERE PAIN LEVEL 7-10; Start 06/22/18 at 12:00 Pantoprazole (Protonix Iv) 40 mg BID@06,18 IV Last administered on 06/24/18at 06:16; Admin Dose 40 MG; Start 06/22/18 at 18:00 Lorazepam (Ativan) 4 mg Q4H PRN IV Delerium Tremens Last administered on 06/22/18at 14:36; Admin Dose 4 MG; Start 06/22/18 at 10:30 Rifaximin (Xifaxan) 550 mg BID PO Last administered on 06/24/18at 09:14; Admin Dose 550 MG; Start 06/22/18 at 21:00 Lactulose (Enulose) 30 gm BID PO Last administered on 06/24/18at 09:14; Admin Dose 30 GM; Start 06/23/18 at 21:00 Chlordiazepoxide (Librium) 50 mg BID PO ; Start 06/24/18 at 21:00; Stop 06/25/18 at 09:01 Lorazepam (Ativan) 1 mg Q8 IV ; Start 06/24/18 at 15:00 BOSSMAN RAMIREZ NP Jun 24, 2018 14:56
[2018-06-24] MEDS: LORAZEPAM 2 MG INJ IV PRN (20:10)
[2018-06-25 01:18] VITALS: BP 117/69; PULSE 81; RESP 20
[2018-06-25] MEDS: morphine 2 MG INJ IV PRN ×3 (04:21→15:46)
[2018-06-25] MEDS: PANTOPRAZOLE 40 MG INJ IV SCH ×2 (05:39→18:23)
[2018-06-25] MEDS: LORAZEPAM 2 MG INJ IV SCH (05:39)
[2018-06-25 07:57] VITALS: BP 111/65; PULSE 68; RESP 18
[2018-06-25] MEDS ORDERED: MAGNESIUM SULFATE 2 GM/50 ML 50 ML IVPB ONE (08:30)
[2018-06-25] MEDS ORDERED: POTASSIUM CHLORIDE (SR) 20 MEQ TAB PO STA (08:30)
--- NOTE | 2018-06-25 08:31 | PN ---
Date/Time of Note Date/Time of Note DATE: 06/25/18 TIME: 08:31 Assessment/Plan VTE Prophylaxis Risk score (from Ns)>0 risk: 4 SCD applied (from [facility] [place]): Yes Pharmacological prophylaxis: NA/contraindicated Pharm contraindication: thrombocytopenia Lines/Catheters IV Catheter Type (from [facility]): Peripheral IV Urinary Cath still in place: No Assessment/Plan Assessment/Plan 1. Acute toxic encephalopathy- improving - most likely secondary to alcohol withdrawal - no need for restraints at this time 2. Acute alcohol intoxication and withdrawal - Ativan and Librium on board - Librium taper continued 3. Pancytopenia- stable - Baseline in setting of liver cirrhosis - seen by hematology last year and appears that patient has chronic thrombocytopenia with drop in platelets after every alcohol binge where he gets admitted. - no active bleeding 4. Chronic debility and lower extremity weakness - Chronic, likely at baseline, patient not able to ambulate when attempted to be discharged by ED physician, this is baseline for patient - PT/OT ordered 5. Alcohol abuse - monitor for DTs - Ativan PRN on board 6. Acute GI bleed- resolved - GI on board and appreciate consultation. EGD showed varices requiring banding 7. Alcoholic liver cirrhosis with h/o grade 3 or 4 esophageal varices - Patient does not appear to be on any medication as he is homeless and noncompliant - propranolol on board - PPI daily 8. Acute pancreatitis- resolved - advancing diet as tolerated 9. Disposition - Continue Librium taper - Family requesting information regarding rehab facilities for patient once stable for d/c. SW consultation placed Result Diagram: 06/25/18 0543 06/25/18 0543 Results 24hrs Laboratory Tests Test 06/25/18 05:43 White Blood Count 1.8 #L Red Blood Count 3.94 L Hemoglobin 10.1 L Hematocrit 31.9 L Mean Corpuscular Volume 81.0 L Mean Corpuscular Hemoglobin 25.6 L Mean Corpuscular Hemoglobin Concent 31.7 L Red Cell Distribution Width 20.4 H Platelet Count 40 L Mean Platelet Volume Immature Granulocytes % 0.000 L Neutrophils % Lymphocytes % Monocytes % Eosinophils % Basophils % Nucleated Red Blood Cells % 0.0 Immature Granulocytes # 0.000 Neutrophils # Lymphocytes # Monocytes # Eosinophils # Basophils # Nucleated Red Blood Cells # Sodium Level 142 Potassium Level 3.4 L Chloride Level 110 Carbon Dioxide Level 22 Anion Gap 10 Blood Urea Nitrogen 12 # Creatinine 0.60 L Est Glomerular Filtrat Rate mL/min > 60 Glucose Level 84 Calcium Level 8.2 L Magnesium Level 1.6 L Total Bilirubin 1.5 H Direct Bilirubin 0.00 Indirect Bilirubin 1.5 H Aspartate Amino Transf (AST/SGOT) 115 H Alanine Aminotransferase (ALT/SGPT) 64 Alkaline Phosphatase 209 H Total Protein 7.0 Albumin 3.0 L Globulin 4.00 H Albumin/Globulin Ratio 0.75 Subjective 24 Hr Interval Summary Free Text/Dictation Patient remains calm today but still complaining of generalized body aches. Also wondering why he has bruising and discussed thrombocytopenia and the fact he needed to be restrained for agitation. Exam/Review of Systems Exam Vitals Vital Signs Date Temp Pulse Resp B/P (MAP) Pulse Ox O2 O2 Flow FiO2 Time Delivery Rate 06/25/18 98.0 68 18 111/65 98 07:57 (80) 06/24/18 Room Air 16:08 Intake and Output 06/24/18 06/24/18 06/25/18 1515:00 23:00 07:00 IntakeIntake Total 1871.2 ml OutputOutput Total 600 ml BalanceBalance 1271.2 ml Exam General: Patient is laying in bed, no acute distress. Neck: Supple Respiratory: Clear to auscultation bilaterally. no wheezing Cardiovascular: regular rate and rhythm, no obvious murmurs Gastrointestinal: soft, nontender to palpation, nondistended, bowel sounds heard. Neurological: Moves all extremities spontaneously Skin: No new skin lesions, ecchymosis appreciated forearm bilaterally Results Results 24hrs Laboratory Tests Test 06/25/18 05:43 White Blood Count 1.8 #L Red Blood Count 3.94 L Hemoglobin 10.1 L Hematocrit 31.9 L Mean Corpuscular Volume 81.0 L Mean Corpuscular Hemoglobin 25.6 L Mean Corpuscular Hemoglobin Concent 31.7 L Red Cell Distribution Width 20.4 H Platelet Count 40 L Mean Platelet Volume Immature Granulocytes % 0.000 L Neutrophils % Lymphocytes % Monocytes % Eosinophils % Basophils % Nucleated Red Blood Cells % 0.0 Immature Granulocytes # 0.000 Neutrophils # Lymphocytes # Monocytes # Eosinophils # Basophils # Nucleated Red Blood Cells # Sodium Level 142 Potassium Level 3.4 L Chloride Level 110 Carbon Dioxide Level 22 Anion Gap 10 Blood Urea Nitrogen 12 # Creatinine 0.60 L Est Glomerular Filtrat Rate mL/min > 60 Glucose Level 84 Calcium Level 8.2 L Magnesium Level 1.6 L Total Bilirubin 1.5 H Direct Bilirubin 0.00 Indirect Bilirubin 1.5 H Aspartate Amino Transf (AST/SGOT) 115 H Alanine Aminotransferase (ALT/SGPT) 64 Alkaline Phosphatase 209 H Total Protein 7.0 Albumin 3.0 L Globulin 4.00 H Albumin/Globulin Ratio 0.75 Medications Medication Current Medications IV Flush (NS 3 ml) 3 ml PER PROTOCOL IV ; Start 06/17/18 at 15:30 Multivitamins 10 ml/Thiamine HCl 100 mg/Folic Acid 1 mg/Sodium Chloride 1,011.2 ml @ 125 mls/ hr DAILY@09 IVPB Last administered on 06/24/18 13:39; Admin Dose 125 MLS/HR; Start 06/18/18 at 09:00 Lorazepam (Ativan) 2 mg Q10MIN PRN IV seizure; Start 06/17/18 at 15:30 Ondansetron HCl (Zofran Inj) 4 mg Q6H PRN IV NAUSEA AND/OR VOMITING Last administered on 06/21/18 18:52; Admin Dose 4 MG; Start 06/18/18 at 11:00 Labetalol HCl (Labetalol) 10 mg Q4H PRN IV SBP > 160 Last administered on 06/18/18 12:26; Admin Dose 10 MG; Start 06/18/18 at 12:30 Acetaminophen (Tylenol Tab) 650 mg Q6H PRN PO MILD PAIN(1-3)OR ELEVATED TEMP Last administered on 06/24/18 12:21; Admin Dose 650 MG; Start 06/19/18 at 17:30 Propranolol HCl (Inderal) 10 mg BID PO Last administered on 06/24/18 20:10; Admin Dose 10 MG; Start 06/22/18 at 09:00 Lorazepam (Ativan) 2 mg Q2H PRN IV FOR SEVERE AGITATION Last administered on 06/24/18 20:10; Admin Dose 2 MG; Start 06/22/18 at 12:00 Morphine Sulfate (morphine) 2 mg Q4H PRN IV SEVERE PAIN LEVEL 7-10 Last administered on 06/25/18 04:21; Admin Dose 2 MG; Start 06/22/18 at 12:00 Pantoprazole (Protonix Iv) 40 mg BID@06,18 IV Last administered on 06/25/18 05:39; Admin Dose 40 MG; Start 06/22/18 at 18:00 Lorazepam (Ativan) 4 mg Q4H PRN IV Delerium Tremens Last administered on 06/22/18 14:36; Admin Dose 4 MG; Start 06/22/18 at 10:30 Rifaximin (Xifaxan) 550 mg BID PO Last administered on 06/24/18 20:09; Admin Dose 550 MG; Start 06/22/18 at 21:00 Chlordiazepoxide (Librium) 50 mg BID PO Last administered on 06/24/18 20:09; Admin Dose 50 MG; Start 06/24/18 at 21:00; Stop 06/25/18 at 09:01 Lorazepam (Ativan) 1 mg Q8 IV Last administered on 06/25/18 05:39; Admin Dose 1 MG; Start 06/24/18 at 15:00 Lactulose (Enulose) 30 gm TID PO Last administered on 06/24/18 20:21; Admin Dose 30 GM; Start 06/24/18 at 21:00 LAVERN [place] MD Jun 25, 2018 08:31
[2018-06-25] MEDS: RIFAXIMIN 550 MG TAB PO SCH ×2 (09:20→20:03)
[2018-06-25] MEDS: CHLORDIAZEPOXIDE 25 MG CAP PO SCH (09:20)
[2018-06-25] MEDS: PROPRANOLOL 10 MG TAB PO SCH ×2 (09:21→20:04)
[2018-06-25] MEDS: LACTULOSE 30ML CUP PO SCH ×3 (09:22→20:04)
[2018-06-25] MEDS: MULTIVITAMINS 10 ML, THIAMINE 100 MG, FOLIC ACID 1 MG in SOD CHLORIDE 0.9% 1,000 ML IVPB SCH (12:58)
--- NOTE | 2018-06-25 14:20 | PN ---
Date/Time of Note Date/Time of Note DATE: 06/25/18 TIME: 14:09 Assessment/Plan VTE Prophylaxis Risk score (from Ns)>0 risk: 5 [place] [facility] [place] Pharmacological prophylaxis: NA/contraindicated Pharm contraindication: bleeding, liver dx Lines/Catheters IV Catheter Type (from [facility]): Peripheral IV Urinary Cath still in place: No Assessment/Plan Assessment/Plan Assessment: Hematemesis EGD 06/21/1819 Grade 3/4 esophageal varices, post EBL x3 Small fundal gastric varices Portal gastropathy Otherwise normal EGD ETOH withdrawal Hepatic encephalopathy Elevated LFTs with direct hyperbilirubinemia (2/2 to progressive liver disease) -MRCP No evidence of biliary duct obstruction Alcoholic liver cirrhosis - DF on admission 22.6 Pancytopenia- likely 2/2 to bone arrow suppression r/t excessive ETOH abuse Elevated lipase -resolved -MRCP- pancreas not well visualized Hepatitis serology is negative Plan: Continue soft diet Increase lactulose 30 mg two times daily titrate to 3 BMs per day PPI BID Repeat EGD/EVL in 3 months Continue propranolol 10 mg BID- as BP/Hr allows Xifaxan 550 mg p.o. twice daily Monitor LFT's Patient seen in collaboration with Dr. Murphy Subjective: Course reviewed with nursing staff Patient interviewed and examined All labs, imaging and other results reviewed Patient is slightly more alert but mildly lethargic. He complains of pain "all over his body". Patient had 5 bowel movements today on lactulose. Will decrease the lactulose to 30 mg twice daily. Denies nausea or vomiting, tolerating soft diet. Recommend repeat EGD in 3 months for esophageal varices treatment. Continue to monitor labs and mental status. PHYSICAL EXAMINATION: GENERAL: Lethargic, confused, soft restraints in place SKIN: No lesions EARS/NOSE AND THROAT: Ears normal, nose normal NECK: Supple, no masses CHEST: Inspection within normal limits. CARDIOVASCULAR: Heart: Regular rate and rhythm RESPIRATORY: Lungs clear to auscultation and percussion, no wheezing, no rubs GASTROINTESTINAL AND LIVER: Abdomen: Soft, no tenderness, non-distended, no hernias, no masses, no organomegaly, no guarding, no rebound tenderness, normoactive bowel sounds. Rectal: Deferred. EXTREMITIES: No cyanosis, clubbing or edema. Result Diagram: 06/25/18 0543 06/25/18 0543 Results 24hrs Laboratory Tests Test 06/25/18 05:43 White Blood Count 1.8 #L Red Blood Count 3.94 L Hemoglobin 10.1 L Hematocrit 31.9 L Mean Corpuscular Volume 81.0 L Mean Corpuscular Hemoglobin 25.6 L Mean Corpuscular Hemoglobin Concent 31.7 L Red Cell Distribution Width 20.4 H Platelet Count 40 L Mean Platelet Volume Immature Granulocytes % 0.000 L Neutrophils % Segmented Neutrophils % (Manual) 46 Band Neutrophils % (Manual) 2 Lymphocytes % Lymphocytes % (Manual) 44 Reactive Lymphocytes % (Manual) 1 H Monocytes % Monocytes % (Manual) 5 Eosinophils % Eosinophils % (Manual) 1 Basophils % Basophils % (Manual) 1 Nucleated Red Blood Cells % 0.0 Immature Granulocytes # 0.000 Neutrophils # Neutrophils # (Manual) 0.8 L Band Neutrophils # 0.0 Lymphocytes (Manual) 0.7 L Lymphocytes # Reactive Lymphocytes # 0.0 Monocytes # Monocytes # (Manual) 0.0 L Eosinophils # Basophils # Basophils # (Manual) 0.0 Nucleated Red Blood Cells # Platelet Estimate DECREASED Giant Platelets 2 H Polychromasia 2+ Poikilocytosis 2+ Anisocytosis 2+ Target Cells 1+ Ovalocytes 1+ Sodium Level 142 Potassium Level 3.4 L Chloride Level 110 Carbon Dioxide Level 22 Anion Gap 10 Blood Urea Nitrogen 12 # Creatinine 0.60 L Est Glomerular Filtrat Rate mL/min > 60 Glucose Level 84 Calcium Level 8.2 L Magnesium Level 1.6 L Total Bilirubin 1.5 H Direct Bilirubin 0.00 Indirect Bilirubin 1.5 H Aspartate Amino Transf (AST/SGOT) 115 H Alanine Aminotransferase (ALT/SGPT) 64 Alkaline Phosphatase 209 H Total Protein 7.0 Albumin 3.0 L Globulin 4.00 H Albumin/Globulin Ratio 0.75 CC: DAVONTE MURPHY MD ; Exam/Review of Systems Exam Vitals Vital Signs Date Temp Pulse Resp B/P (MAP) Pulse Ox O2 O2 Flow FiO2 Time Delivery Rate 06/25/18 98.0 68 18 111/65 98 07:57 (80) 06/24/18 Room Air 16:08 Intake and Output 06/24/18 06/24/18 06/25/18 1515:00 23:00 07:00 IntakeIntake Total 1871.2 ml OutputOutput Total 600 ml BalanceBalance 1271.2 ml Results Results 24hrs Laboratory Tests Test 06/25/18 05:43 White Blood Count 1.8 #L Red Blood Count 3.94 L Hemoglobin 10.1 L Hematocrit 31.9 L Mean Corpuscular Volume 81.0 L Mean Corpuscular Hemoglobin 25.6 L Mean Corpuscular Hemoglobin Concent 31.7 L Red Cell Distribution Width 20.4 H Platelet Count 40 L Mean Platelet Volume Immature Granulocytes % 0.000 L Neutrophils % Segmented Neutrophils % (Manual) 46 Band Neutrophils % (Manual) 2 Lymphocytes % Lymphocytes % (Manual) 44 Reactive Lymphocytes % (Manual) 1 H Monocytes % Monocytes % (Manual) 5 Eosinophils % Eosinophils % (Manual) 1 Basophils % Basophils % (Manual) 1 Nucleated Red Blood Cells % 0.0 Immature Granulocytes # 0.000 Neutrophils # Neutrophils # (Manual) 0.8 L Band Neutrophils # 0.0 Lymphocytes (Manual) 0.7 L Lymphocytes # Reactive Lymphocytes # 0.0 Monocytes # Monocytes # (Manual) 0.0 L Eosinophils # Basophils # Basophils # (Manual) 0.0 Nucleated Red Blood Cells # Platelet Estimate DECREASED Giant Platelets 2 H Polychromasia 2+ Poikilocytosis 2+ Anisocytosis 2+ Target Cells 1+ Ovalocytes 1+ Sodium Level 142 Potassium Level 3.4 L Chloride Level 110 Carbon Dioxide Level 22 Anion Gap 10 Blood Urea Nitrogen 12 # Creatinine 0.60 L Est Glomerular Filtrat Rate mL/min > 60 Glucose Level 84 Calcium Level 8.2 L Magnesium Level 1.6 L Total Bilirubin 1.5 H Direct Bilirubin 0.00 Indirect Bilirubin 1.5 H Aspartate Amino Transf (AST/SGOT) 115 H Alanine Aminotransferase (ALT/SGPT) 64 Alkaline Phosphatase 209 H Total Protein 7.0 Albumin 3.0 L Globulin 4.00 H Albumin/Globulin Ratio 0.75 Medications Medication Current Medications IV Flush (NS 3 ml) 3 ml PER PROTOCOL IV ; Start 06/17/18 at 15:30 Multivitamins 10 ml/Thiamine HCl 100 mg/Folic Acid 1 mg/Sodium Chloride 1,011.2 ml @ 125 mls/ hr DAILY@09 IVPB Last administered on 06/25/18at 12:58; Admin Dose 125 MLS/HR; Start 06/18/18 at 09:00 Lorazepam (Ativan) 2 mg Q10MIN PRN IV seizure; Start 06/17/18 at 15:30 Ondansetron HCl (Zofran Inj) 4 mg Q6H PRN IV NAUSEA AND/OR VOMITING Last administered on 06/21/18 18:52; Admin Dose 4 MG; Start 06/18/18 at 11:00 Labetalol HCl (Labetalol) 10 mg Q4H PRN IV SBP > 160 Last administered on 06/18/18 12:26; Admin Dose 10 MG; Start 06/18/18 at 12:30 Acetaminophen (Tylenol Tab) 650 mg Q6H PRN PO MILD PAIN(1-3)OR ELEVATED TEMP Last administered on 06/24/18 12:21; Admin Dose 650 MG; Start 06/19/18 at 17:30 Propranolol HCl (Inderal) 10 mg BID PO Last administered on 06/25/18 09:21; Admin Dose 10 MG; Start 06/22/18 at 09:00 Lorazepam (Ativan) 2 mg Q2H PRN IV FOR SEVERE AGITATION Last administered on 06/24/18 20:10; Admin Dose 2 MG; Start 06/22/18 at 12:00 Morphine Sulfate (morphine) 2 mg Q4H PRN IV SEVERE PAIN LEVEL 7-10 Last administered on 06/25/18 11:21; Admin Dose 2 MG; Start 06/22/18 at 12:00 Pantoprazole (Protonix Iv) 40 mg BID@06,18 IV Last administered on 06/25/18 05:39; Admin Dose 40 MG; Start 06/22/18 at 18:00 Lorazepam (Ativan) 4 mg Q4H PRN IV Delerium Tremens Last administered on 06/22/18 14:36; Admin Dose 4 MG; Start 06/22/18 at 10:30 Rifaximin (Xifaxan) 550 mg BID PO Last administered on 06/25/18 09:20; Admin Dose 550 MG; Start 06/22/18 at 21:00 Lactulose (Enulose) 30 gm TID PO Last administered on 06/25/18 13:04; Admin Dose 30 GM; Start 06/24/18 at 21:00 Chlordiazepoxide (Librium) 25 mg DAILY PO ; Start 06/26/18 at 09:00; Stop 06/28/18 at 08:59 BOSSMAN RAMIREZ NP Jun 25, 2018 14:20
[2018-06-25 14:40] VITALS: BP 127/73; PULSE 71; RESP 16
[2018-06-25 19:27] VITALS: BP 138/83; PULSE 79; RESP 18
[2018-06-25] MEDS: LORAZEPAM 2 MG INJ IV PRN (22:46)
[2018-06-26 02:27] VITALS: BP 134/67; PULSE 69; RESP 18
[2018-06-26] MEDS: PANTOPRAZOLE 40 MG INJ IV SCH (05:01)
[2018-06-26 08:23] VITALS: BP 134/87; PULSE 79; RESP 18
[2018-06-26] MEDS: LACTULOSE 30ML CUP PO SCH ×2 (08:37→20:51)
[2018-06-26] MEDS: RIFAXIMIN 550 MG TAB PO SCH ×2 (08:38→20:50)
[2018-06-26] MEDS: CHLORDIAZEPOXIDE 25 MG CAP PO SCH (08:38)
[2018-06-26] MEDS: PROPRANOLOL 10 MG TAB PO SCH ×2 (08:40→20:50)
[2018-06-26] MEDS: MULTIVITAMINS 10 ML, THIAMINE 100 MG, FOLIC ACID 1 MG in SOD CHLORIDE 0.9% 1,000 ML IVPB SCH (09:37)
--- NOTE | 2018-06-26 14:27 | PN ---
Date/Time of Note Date/Time of Note DATE: 06/26/18 TIME: 14:13 Assessment/Plan VTE Prophylaxis Risk score (from Ns)>0 risk: 2 SCD applied (from [facility]): Yes Pharmacological prophylaxis: other (scds) Lines/Catheters IV Catheter Type (from Nrs): Peripheral IV Urinary Cath still in place: No Assessment/Plan Hospital Course Assessment: Hematemesis- resolved EGD 06/21/1819 Grade 3/4 esophageal varices, post EBL x3 Small fundal gastric varices Portal gastropathy Otherwise normal EGD ETOH withdrawal Hepatic encephalopathy- improving Elevated LFTs with direct hyperbilirubinemia (2/2 to liver disease)- trending down -MRCP No evidence of biliary duct obstruction Alcoholic liver cirrhosis - DF on admission 22.6 Pancytopenia- likely 2/2 to bone arrow suppression r/t excessive ETOH abuse Elevated lipase -resolved -MRCP- pancreas not well visualized Hepatitis serology is negative Plan: Diet as tolerated (currently 2gm Na soft) Continue current regimen (Xifaxan and lactulose (titrate to 3-4 bms in a 24/hr period) PPI BID/propranolol 10 mg BID- as BP/Hr allows) Repeat EGD/EVL in 3 months Monitor LFT's Continue OT/PT D/c planning per hospitalist- pt would benefit from acute rehab facility when ready for d/c Patient seen in collaboration with Dr. Murphy/Ramandeep Subjective: Course reviewed with nursing staff Patient interviewed and examined All labs, imaging and other results reviewed Patient working with OT, c/o generalized weakness and pain. Pt much more alert than last week. No overt signs of GI bleed, hgb currently stable. Will continue close observation. PHYSICAL EXAMINATION: GENERAL: Alert and oriented to name, place, confused on time however when reoriented able to answer appropriately, generalized weakness EARS/NOSE AND THROAT: Ears normal, nose normal NECK: Supple, no masses CHEST: Inspection within normal limits. CARDIOVASCULAR: Heart: Regular rate and rhythm RESPIRATORY: Lungs clear to auscultation and percussion, no wheezing, no rubs GASTROINTESTINAL AND LIVER: Abdomen: Soft, no tenderness, non-distended, no hernias, no masses, no organomegaly, no guarding, no rebound tenderness, normoactive bowel sounds. Rectal: Deferred. EXTREMITIES: No cyanosis, clubbing or edema. Result Diagram: 06/26/18 0709 06/26/18 0709 Results 24hrs Laboratory Tests Test 06/26/18 07:09 White Blood Count 1.7 L Red Blood Count 3.84 L Hemoglobin 10.0 L Hematocrit 31.4 L Mean Corpuscular Volume 81.8 L Mean Corpuscular Hemoglobin 26.0 L Mean Corpuscular Hemoglobin Concent 31.8 L Red Cell Distribution Width 20.0 H Platelet Count 42 L Mean Platelet Volume Immature Granulocytes % 0.000 L Neutrophils % Segmented Neutrophils % (Manual) 26 L Band Neutrophils % (Manual) 3 Lymphocytes % Lymphocytes % (Manual) 27 Monocytes % Monocytes % (Manual) 29 H Eosinophils % Eosinophils % (Manual) 3 Basophils % Basophils % (Manual) 1 Metamyelocytes % (manual) 4 H Myelocytes % (Manual) 4 H Promyelocytes % (Manual) 3 H Nucleated Red Blood Cells % 0.0 Immature Granulocytes # 0.000 Neutrophils # Neutrophils # (Manual) 0.4 L Band Neutrophils # 0.0 Lymphocytes (Manual) 0.4 L Lymphocytes # Monocytes # Monocytes # (Manual) 0.4 Eosinophils # Basophils # Basophils # (Manual) 0.0 Metamyelocytes # 0.0 Myelocytes # 0.0 Promyelocytes # 0.0 Nucleated Red Blood Cells # Platelet Estimate SIG DECREASED Giant Platelets 9 H Polychromasia 1+ Poikilocytosis 2+ Anisocytosis 2+ Macrocytosis 1+ Ovalocytes 1+ Sodium Level 141 Potassium Level 3.7 Chloride Level 108 Carbon Dioxide Level 23 Anion Gap 10 Blood Urea Nitrogen 10 Creatinine 0.48 L Est Glomerular Filtrat Rate mL/min > 60 Glucose Level 88 Calcium Level 8.2 L Magnesium Level 1.6 L Total Bilirubin 1.1 Direct Bilirubin 0.00 Indirect Bilirubin 1.1 Aspartate Amino Transf (AST/SGOT) 104 H Alanine Aminotransferase (ALT/SGPT) 56 Alkaline Phosphatase 170 H Total Protein 6.5 Albumin 2.8 L Globulin 3.70 H Albumin/Globulin Ratio 0.75 Exam/Review of Systems Exam Vitals Vital Signs Date Temp Pulse Resp B/P (MAP) Pulse Ox O2 O2 Flow FiO2 Time Delivery Rate 06/26/18 98.6 79 18 134/87 98 08:23 (103) 06/24/18 Room Air 16:08 Intake and Output 06/25/18 06/25/18 06/26/18 1515:00 23:00 07:00 IntakeIntake Total 1991.2 ml BalanceBalance 1991.2 ml Results Results 24hrs Laboratory Tests Test 06/26/18 07:09 White Blood Count 1.7 L Red Blood Count 3.84 L Hemoglobin 10.0 L Hematocrit 31.4 L Mean Corpuscular Volume 81.8 L Mean Corpuscular Hemoglobin 26.0 L Mean Corpuscular Hemoglobin Concent 31.8 L Red Cell Distribution Width 20.0 H Platelet Count 42 L Mean Platelet Volume Immature Granulocytes % 0.000 L Neutrophils % Segmented Neutrophils % (Manual) 26 L Band Neutrophils % (Manual) 3 Lymphocytes % Lymphocytes % (Manual) 27 Monocytes % Monocytes % (Manual) 29 H Eosinophils % Eosinophils % (Manual) 3 Basophils % Basophils % (Manual) 1 Metamyelocytes % (manual) 4 H Myelocytes % (Manual) 4 H Promyelocytes % (Manual) 3 H Nucleated Red Blood Cells % 0.0 Immature Granulocytes # 0.000 Neutrophils # Neutrophils # (Manual) 0.4 L Band Neutrophils # 0.0 Lymphocytes (Manual) 0.4 L Lymphocytes # Monocytes # Monocytes # (Manual) 0.4 Eosinophils # Basophils # Basophils # (Manual) 0.0 Metamyelocytes # 0.0 Myelocytes # 0.0 Promyelocytes # 0.0 Nucleated Red Blood Cells # Platelet Estimate SIG DECREASED Giant Platelets 9 H Polychromasia 1+ Poikilocytosis 2+ Anisocytosis 2+ Macrocytosis 1+ Ovalocytes 1+ Sodium Level 141 Potassium Level 3.7 Chloride Level 108 Carbon Dioxide Level 23 Anion Gap 10 Blood Urea Nitrogen 10 Creatinine 0.48 L Est Glomerular Filtrat Rate mL/min > 60 Glucose Level 88 Calcium Level 8.2 L Magnesium Level 1.6 L Total Bilirubin 1.1 Direct Bilirubin 0.00 Indirect Bilirubin 1.1 Aspartate Amino Transf (AST/SGOT) 104 H Alanine Aminotransferase (ALT/SGPT) 56 Alkaline Phosphatase 170 H Total Protein 6.5 Albumin 2.8 L Globulin 3.70 H Albumin/Globulin Ratio 0.75 Medications Medication Current Medications IV Flush (NS 3 ml) 3 ml PER PROTOCOL IV ; Start 06/17/18 at 15:30 Multivitamins 10 ml/Thiamine HCl 100 mg/Folic Acid 1 mg/Sodium Chloride 1,011.2 ml @ 125 mls/ hr DAILY@09 IVPB Last administered on 06/26/18at 09:37; Admin Dose 125 MLS/HR; Start 06/18/18 at 09:00 Lorazepam (Ativan) 2 mg Q10MIN PRN IV seizure; Start 06/17/18 at 15:30 Ondansetron HCl (Zofran Inj) 4 mg Q6H PRN IV NAUSEA AND/OR VOMITING Last admini stered on 06/21/18 18:52; Admin Dose 4 MG; Start 06/18/18 at 11:00 Labetalol HCl (Labetalol) 10 mg Q4H PRN IV SBP > 160 Last administered on 06/18/18 12:26; Admin Dose 10 MG; Start 06/18/18 at 12:30 Acetaminophen (Tylenol Tab) 650 mg Q6H PRN PO MILD PAIN(1-3)OR ELEVATED TEMP Last administered on 06/24/18 12:21; Admin Dose 650 MG; Start 06/19/18 at 17:30 Propranolol HCl (Inderal) 10 mg BID PO Last administered on 06/26/18 08:40; Admin Dose 10 MG; Start 06/22/18 at 09:00 Lorazepam (Ativan) 2 mg Q2H PRN IV FOR SEVERE AGITATION Last administered on 06/25/18 22:46; Admin Dose 2 MG; Start 06/22/18 at 12:00 Morphine Sulfate (morphine) 2 mg Q4H PRN IV SEVERE PAIN LEVEL 7-10 Last administered on 06/25/18 15:46; Admin Dose 2 MG; Start 06/22/18 at 12:00 Pantoprazole (Protonix Iv) 40 mg BID@06,18 IV Last administered on 06/26/18 05:01; Admin Dose 40 MG; Start 06/22/18 at 18:00 Lorazepam (Ativan) 4 mg Q4H PRN IV Delerium Tremens Last administered on 06/22/18 14:36; Admin Dose 4 MG; Start 06/22/18 at 10:30 Rifaximin (Xifaxan) 550 mg BID PO Last administered on 06/26/18 08:38; Admin Dose 550 MG; Start 06/22/18 at 21:00 Chlordiazepoxide (Librium) 25 mg DAILY PO Last administered on 06/26/18 08:38; Admin Dose 25 MG; Start 06/26/18 at 09:00; Stop 06/28/18 at 08:59 Lactulose (Enulose) 30 gm BID PO Last administered on 06/26/18at 08:37; Admin Dose 30 GM; Start 06/25/18 at 21:00 MANNY HURT Jun 26, 2018 14:24
[2018-06-26 15:09] VITALS: BP 120/71; PULSE 86; RESP 18
--- NOTE | 2018-06-26 16:01 | PN ---
Date/Time of Note Date/Time of Note DATE: 06/26/18 TIME: 16:00 Objective Vitals Vital Signs Date Temp Pulse Resp B/P (MAP) Pulse Ox O2 O2 Flow FiO2 Time Delivery Rate 06/26/18 98.4 86 18 120/71 97 15:09 (87) 06/24/18 Room Air 16:08 Intake and Output 06/25/18 06/25/18 06/26/18 1515:00 23:00 07:00 IntakeIntake Total 1991.2 ml BalanceBalance 1991.2 ml Results Result Diagram: 06/26/1809 06/26/18 0709 Medications Medications Current Medications IV Flush (NS 3 ml) 3 ml PER PROTOCOL IV ; Start 06/17/18 at 15:30 Multivitamins 10 ml/Thiamine HCl 100 mg/Folic Acid 1 mg/Sodium Chloride 1,011.2 ml @ 125 mls/ hr DAILY@09 IVPB Last administered on 06/26/18at 09:37; Admin Dose 125 MLS/HR; Start 06/18/18 at 09:00 Lorazepam (Ativan) 2 mg Q10MIN PRN IV seizure; Start 06/17/18 at 15:30 Ondansetron HCl (Zofran Inj) 4 mg Q6H PRN IV NAUSEA AND/OR VOMITING Last administered on 06/21/18 18:52; Admin Dose 4 MG; Start 06/18/18 at 11:00 Labetalol HCl (Labetalol) 10 mg Q4H PRN IV SBP > 160 Last administered on 06/18/18at 12:26; Admin Dose 10 MG; Start 06/18/18 at 12:30 Acetaminophen (Tylenol Tab) 650 mg Q6H PRN PO MILD PAIN(1-3)OR ELEVATED TEMP Last administered on 06/24/18 12:21; Admin Dose 650 MG; Start 06/19/18 at 17:30 Propranolol HCl (Inderal) 10 mg BID PO Last administered on 06/26/18at 08:40; Admin Dose 10 MG; Start 06/22/18 at 09:00 Lorazepam (Ativan) 2 mg Q2H PRN IV FOR SEVERE AGITATION Last administered on 06/25/18 22:46; Admin Dose 2 MG; Start 06/22/18 at 12:00 Morphine Sulfate (morphine) 2 mg Q4H PRN IV SEVERE PAIN LEVEL 7-10 Last administered on 06/25/18at 15:46; Admin Dose 2 MG; Start 06/22/18 at 12:00 Rifaximin (Xifaxan) 550 mg BID PO Last administered on 06/26/18at 08:38; Admin Dose 550 MG; Start 06/22/18 at 21:00 Chlordiazepoxide (Librium) 25 mg DAILY PO Last administered on 06/26/18at 08:38; Admin Dose 25 MG; Start 06/26/18 at 09:00; Stop 06/28/18 at 08:59 Lactulose (Enulose) 30 gm BID PO Last administered on 06/26/18at 08:37; Admin Dose 30 GM; Start 06/25/18 at 21:00 Pantoprazole (Protonix Tab) 40 mg BID@06,18 PO ; Start 06/26/18 at 18:00; Status UNV VTE Prophylaxis [place] [facility] [place] risk: 2 SCD applied ([place] [facility] [place] Yes Lines/Catheters IV Catheter Type: Bishop in Place: No Assessment/Plan Hospital Course Subjective No acute issues Objective Physical exam General: Patient is laying in bed and answers questions appropriately Mentation: Patient is alert and oriented 4, Head: Normocephalic atraumatic Eyes: EOMI, pupils reactive to light Neck: Supple, nontender, midline Respiratory: Clear to auscultation bilaterally Cardiovascular: regular rate, no obvious murmurs Gastrointestinal: non-tender to palpation, bowel sounds heard. Neurological: Moves all extremities spontaneously Skin: No new skin lesions Assessment/Plan 1. Acute toxic encephalopathy- improving - most likely secondary to alcohol withdrawal - no need for restraints at this time 2. Acute alcohol intoxication and withdrawal - Ativan and Librium on board - Librium taper continued 3. Pancytopenia- stable - Baseline in setting of liver cirrhosis - seen by hematology last year and appears that patient has chronic thrombocytopenia with drop in platelets after every alcohol binge where he gets admitted. - no active bleeding 4. Chronic debility and lower extremity weakness - Chronic, likely at baseline, patient not able to ambulate when attempted to be discharged by ED physician, this is baseline for patient - PT/OT ordered 5. Alcohol abuse - monitor for DTs - Ativan PRN on board 6. Acute GI bleed- resolved - GI on board and appreciate consultation. EGD showed varices requiring banding 7. Alcoholic liver cirrhosis with h/o grade 3 or 4 esophageal varices - Patient does not appear to be on any medication prior to admission as he is homeless and noncompliant - propranolol on board - PPI bid 8. Acute pancreatitis- resolved - advancing diet as tolerated 9. Disposition - Continue Librium taper - Family requesting information regarding rehab facilities for patient once stable for d/c. SW consultation placed -Barrier to discharge as patient being homeless and only being able to ambulate 2 feet with physical therapy, unsafe discharge at this time. FARHAN CORRAL Jun 26, 2018 16:01
[2018-06-26] MEDS: PANTOPRAZOLE (EC) 40 MG TAB PO SCH (17:33)
[2018-06-26 19:48] VITALS: BP 118/65; PULSE 81; RESP 18
[2018-06-27 02:00] VITALS: BP 120/66; PULSE 69; RESP 18
[2018-06-27] MEDS: ACETAMINOPHEN 325 MG TAB PO PRN (03:17)
[2018-06-27] MEDS: PANTOPRAZOLE (EC) 40 MG TAB PO SCH ×2 (05:42→17:41)
[2018-06-27 07:18] VITALS: BP 127/66; PULSE 66; RESP 18
[2018-06-27] MEDS: PROPRANOLOL 10 MG TAB PO SCH ×2 (08:43→20:38)
[2018-06-27] MEDS: LACTULOSE 30ML CUP PO SCH ×2 (08:43→20:37)
[2018-06-27] MEDS: RIFAXIMIN 550 MG TAB PO SCH ×2 (08:43→20:37)
[2018-06-27] MEDS: CHLORDIAZEPOXIDE 25 MG CAP PO SCH (08:43)
[2018-06-27] MEDS: MULTIVITAMINS 10 ML, THIAMINE 100 MG, FOLIC ACID 1 MG in SOD CHLORIDE 0.9% 1,000 ML IVPB SCH (08:50)
[2018-06-27] MEDS: morphine 2 MG INJ IV PRN ×2 (11:27→17:54)
[2018-06-27 14:25] VITALS: BP 133/76; PULSE 71; RESP 20
--- NOTE | 2018-06-27 14:58 | PN ---
Date/Time of Note Date/Time of Note DATE: 06/27/18 TIME: 14:57 Assessment/Plan VTE Prophylaxis Risk score (from [facility])>0 risk: 2 SCD applied (from [facility]): Yes Pharmacological prophylaxis: other (scds) Lines/Catheters IV [facility]ter Type (from [facility]): Peripheral IV Urinary Cath still in place: No Assessment/Plan Hospital Course Assessment: Hematemesis- resolved EGD 06/21/1819 Grade 3/4 esophageal varices, post EVL x3 Small fundal gastric varices Portal gastropathy Otherwise normal EGD ETOH withdrawal Hepatic encephalopathy- improving Elevated LFTs with direct hyperbilirubinemia (2/2 to liver disease)- trending down -MRCP No evidence of biliary duct obstruction Alcoholic liver cirrhosis - DF on admission 22.6 Pancytopenia- likely 2/2 to bone arrow suppression r/t excessive ETOH abuse Elevated lipase -resolved -MRCP- pancreas not well visualized Hepatitis serology is negative Plan: Diet as tolerated (currently 2gm Na soft) Continue current regimen (Xifaxan and lactulose (titrate to 3-4 bms in a 24/hr period) PPI BID/propranolol 10 mg BID- as BP/Hr allows) Repeat EGD/EVL in 3 months Monitor LFT's Continue OT/PT D/c planning per hospitalist- pt would benefit from acute rehab facility when ready for d/c Patient seen in collaboration with Dr. Murphy/Bernardo Subjective: Course reviewed with nursing staff Patient interviewed and examined All labs, imaging and other results reviewed Pt with much improvement from yesterday. Currently ambulating in room, Just brushed his teeth, able to communicate and make all needs known Pt c/o some chest pain with deep breaths- CXR possible mild right lower lobe infiltrate. PHYSICAL EXAMINATION: GENERAL: Alert and oriented x3, weakness greatly improved. EARS/NOSE AND THROAT: Ears normal, nose normal NECK: Supple, no masses CHEST: Inspection within normal limits. CARDIOVASCULAR: Heart: Regular rate and rhythm RESPIRATORY: Lungs clear to auscultation GASTROINTESTINAL AND LIVER: Abdomen: Soft, no tenderness, non-distended, no karla ias, no masses, no organomegaly, no guarding, no rebound tenderness, normoactive bowel sounds. Rectal: Deferred. EXTREMITIES: No cyanosis, clubbing or edema. Result Diagram: 06/27/1853606/27/1837 Results 24hrs Laboratory Tests Test 06/27/18 05:37 06/27/18 07:32 06/27/18 11:54 White Blood Count 1.8 L Red Blood Count 4.04 L Hemoglobin 10.4 L Hematocrit 32.8 L Mean Corpuscular Volume 81.2 L Mean Corpuscular Hemoglobin 25.7 L Mean Corpuscular 31.7 L Hemoglobin Concent Red Cell Distribution Width 20.1 H Platelet Count 44 L Mean Platelet Volume Immature Granulocytes % 0.000 L Neutrophils % Segmented Neutrophils 31 L % (Manual) Band Neutrophils % (Manual) 3 Lymphocytes % Lymphocytes % (Manual) 40 Reactive Lymphocytes % (Manual) 6 H Monocytes % Monocytes % (Manual) 11 Eosinophils % Eosinophils % (Manual) 4 Basophils % Basophils % (Manual) 5 H Nucleated Red Blood Cells % 0.0 Immature Granulocytes # 0.000 Neutrophils # Neutrophils # (Manual) 0.6 L Band Neutrophils # 0.0 Lymphocytes (Manual) 0.7 L Lymphocytes # Reactive Lymphocytes # 0.1 H Monocytes # Monocytes # (Manual) 0.1 L Eosinophils # Basophils # Basophils # (Manual) 0.0 Nucleated Red Blood Cells # Platelet Estimate DECREASED Giant Platelets 7 H Polychromasia 1+ Poikilocytosis 1+ Anisocytosis 1+ Macrocytosis 1+ Target Cells 1+ Ovalocytes 1+ Elliptocytes 1+ Sodium Level 140 Potassium Level 3.6 Chloride Level 107 Carbon Dioxide Level 24 Anion Gap 9 Blood Urea Nitrogen 9 Creatinine 0.46 L Est Glomerular Filtrat > 60 Rate mL/min Glucose Level 83 Calcium Level 8.3 L Magnesium Level 1.7 Total Bilirubin 1.2 Direct Bilirubin 0.00 Indirect Bilirubin 1.2 H Aspartate Amino 101 H Transf (AST/SGOT) Alanine 64 Aminotransferase (ALT/SGPT) Alkaline Phosphatase 192 H Total Protein 6.7 Albumin 2.9 L Globulin 3.80 H Albumin/Globulin Ratio 0.76 Lab Scanned Report BLOOD TRANSFUSION Troponin I < 0.012 Exam/Review of Systems Exam Vitals Vital Signs Date Temp Pulse Resp B/P (MAP) Pulse Ox O2 O2 Flow FiO2 Time Delivery Rate 06/27/18 98.0 66 18 127/66 98 Room Air 07:18 (86) Intake and Output 06/26/18 06/26/18 06/27/18 1515:00 23:00 07:00 IntakeIntake Total 600 ml 2321.2 ml 150 ml BalanceBalance 600 ml 2321.2 ml 150 ml Results Results 24hrs Laboratory Tests Test 06/27/18 05:37 06/27/18 07:32 06/27/18 11:54 White Blood Count 1.8 L Red Blood Count 4.04 L Hemoglobin 10.4 L Hematocrit 32.8 L Mean Corpuscular Volume 81.2 L Mean Corpuscular Hemoglobin 25.7 L Mean Corpuscular 31.7 L Hemoglobin Concent Red Cell Distribution Width 20.1 H Platelet Count 44 L Mean Platelet Volume Immature Granulocytes % 0.000 L Neutrophils % Segmented Neutrophils 31 L % (Manual) Band Neutrophils % (Manual) 3 Lymphocytes % Lymphocytes % (Manual) 40 Reactive Lymphocytes % (Manual) 6 H Monocytes % Monocytes % (Manual) 11 Eosinophils % Eosinophils % (Manual) 4 Basophils % Basophils % (Manual) 5 H Nucleated Red Blood Cells % 0.0 Immature Granulocytes # 0.000 Neutrophils # Neutrophils # (Manual) 0.6 L Band Neutrophils # 0.0 Lymphocytes (Manual) 0.7 L Lymphocytes # Reactive Lymphocytes # 0.1 H Monocytes # Monocytes # (Manual) 0.1 L Eosinophils # Basophils # Basophils # (Manual) 0.0 Nucleated Red Blood Cells # Platelet Estimate DECREASED Giant Platelets 7 H Polychromasia 1+ Poikilocytosis 1+ Anisocytosis 1+ Macrocytosis 1+ Target Cells 1+ Ovalocytes 1+ Elliptocytes 1+ Sodium Level 140 Potassium Level 3.6 Chloride Level 107 Carbon Dioxide Level 24 Anion Gap 9 Blood Urea Nitrogen 9 Creatinine 0.46 L Est Glomerular Filtrat > 60 Rate mL/min Glucose Level 83 Calcium Level 8.3 L Magnesium Level 1.7 Total Bilirubin 1.2 Direct Bilirubin 0.00 Indirect Bilirubin 1.2 H Aspartate Amino 101 H Transf (AST/SGOT) Alanine 64 Aminotransferase (ALT/SGPT) Alkaline Phosphatase 192 H Total Protein 6.7 Albumin 2.9 L Globulin 3.80 H Albumin/Globulin Ratio 0.76 Lab Scanned Report BLOOD TRANSFUSION Troponin I < 0.012 Medications Medication Current Medications IV Flush (NS 3 ml) 3 ml PER PROTOCOL IV ; Start 06/17/18 at 15:30 Multivitamins 10 ml/Thiamine HCl 100 mg/Folic Acid 1 mg/Sodium Chloride 1,011.2 ml @ 125 mls/ hr DAILY@09 IVPB Last administered on 06/27/18at 08:50; Admin Dose 125 MLS/HR; Start 06/18/18 at 09:00 Lorazepam (Ativan) 2 mg Q10MIN PRN IV seizure; Start 06/17/18 at 15:30 Ondansetron HCl (Zofran Inj) 4 mg Q6H PRN IV NAUSEA AND/OR VOMITING Last administered on 06/21/18 18:52; Admin Dose 4 MG; Start 06/18/18 at 11:00 Labetalol HCl (Labetalol) 10 mg Q4H PRN IV SBP > 160 Last administered on 06/18/18 12:26; Admin Dose 10 MG; Start 06/18/18 at 12:30 Acetaminophen (Tylenol Tab) 650 mg Q6H PRN PO MILD PAIN(1-3)OR ELEVATED TEMP Last administered on 06/27/18 03:17; Admin Dose 650 MG; Start 06/19/18 at 17:30 Propranolol HCl (Inderal) 10 mg BID PO Last administered on 06/27/18 08:43; Admin Dose 10 MG; Start 06/22/18 at 09:00 Lorazepam (Ativan) 2 mg Q2H PRN IV FOR SEVERE AGITATION Last administered on 06/25/18 22:46; Admin Dose 2 MG; Start 06/22/18 at 12:00 Morphine Sulfate (morphine) 2 mg Q4H PRN IV SEVERE PAIN LEVEL 7-10 Last admin istered on 06/27/18 11:27; Admin Dose 2 MG; Start 06/22/18 at 12:00 Rifaximin (Xifaxan) 550 mg BID PO Last administered on 06/27/18 08:43; Admin Dose 550 MG; Start 06/22/18 at 21:00 Chlordiazepoxide (Librium) 25 mg DAILY PO Last administered on 06/27/18 08:43; Admin Dose 25 MG; Start 06/26/18 at 09:00; Stop 06/28/18 at 08:59 Lactulose (Enulose) 30 gm BID PO Last administered on 06/27/18 08:43; Admin Dose 30 GM; Start 06/25/18 at 21:00 Pantoprazole (Protonix Tab) 40 mg BID@,18 PO Last administered on 06/27/18 05:42; Admin Dose 40 MG; Start 06/26/18 at 18:00 MANNY HURT Jun 27, 2018 14:58
--- NOTE | 2018-06-27 15:24 | RADRPT ---
Vent Rate: 66 bpm RR Interval: 0 msec IN Interval: 174 msec QRS Duration: 90 msec QT Interval: 402 msec QTC Interval: 421 msec P-R-T [place]: 31 - 30 - 21 degrees Normal sinus rhythm Normal ECG Electronically Signed By: Ibrahima Iraheta
--- NOTE | 2018-06-27 15:37 | PN ---
Date/Time of Note Date/Time of Note DATE: 06/27/18 TIME: 15:18 Assessment/Plan VTE [place]axis [place] [facility] [place]: 2 [place] [facility] [place] Yes Pharmacological prophylaxis: NA/contraindicated Pharm contraindication: bleeding Lines/Catheters IV [facility] ([facility] Peripheral IV Urinary Cath still in place: No Assessment/Plan Assessment/Plan 1. Acute alcohol intoxication and withdrawal, librium is off, on ativan prn 2. GI bleeding, s/p EGD 06/21/18 with Grade 3/4 esophageal varices, post EVL x3, small fundal gastric varices, portal gastropathy, no active bleeding 3. Alcoholic liver disease 4. Pancytopenia, stable 5. Acute pancreatitis, resolved 6. Chest pain, atypical, ECG, troponin, echo Result Diagram: 06/27/18 0537 06/27/18 0537 Results 24hrs Laboratory Tests Test 06/27/18 05:37 06/27/18 07:32 06/27/18 11:54 White Blood Count 1.8 L Red Blood Count 4.04 L Hemoglobin 10.4 L Hematocrit 32.8 L Mean Corpuscular Volume 81.2 L Mean Corpuscular Hemoglobin 25.7 L Mean Corpuscular 31.7 L Hemoglobin Concent Red Cell Distribution Width 20.1 H Platelet Count 44 L Mean Platelet Volume Immature Granulocytes % 0.000 L Neutrophils % Segmented Neutrophils 31 L % (Manual) Band Neutrophils % (Manual) 3 Lymphocytes % Lymphocytes % (Manual) 40 Reactive Lymphocytes % (Manual) 6 H Monocytes % Monocytes % (Manual) 11 Eosinophils % Eosinophils % (Manual) 4 Basophils % Basophils % (Manual) 5 H Nucleated Red Blood Cells % 0.0 Immature Granulocytes # 0.000 Neutrophils # Neutrophils # (Manual) 0.6 L Band Neutrophils # 0.0 Lymphocytes (Manual) 0.7 L Lymphocytes # Reactive Lymphocytes # 0.1 H Monocytes # Monocytes # (Manual) 0.1 L Eosinophils # Basophils # Basophils # (Manual) 0.0 Nucleated Red Blood Cells # Platelet Estimate DECREASED Giant Platelets 7 H Polychromasia 1+ Poikilocytosis 1+ Anisocytosis 1+ Macrocytosis 1+ Target Cells 1+ Ovalocytes 1+ Elliptocytes 1+ Sodium Level 140 Potassium Level 3.6 Chloride Level 107 Carbon Dioxide Level 24 Anion Gap 9 Blood Urea Nitrogen 9 Creatinine 0.46 L Est Glomerular Filtrat > 60 Rate mL/min Glucose Level 83 Calcium Level 8.3 L Magnesium Level 1.7 Total Bilirubin 1.2 Direct Bilirubin 0.00 Indirect Bilirubin 1.2 H Aspartate Amino 101 H Transf (AST/SGOT) Alanine 64 Aminotransferase (ALT/SGPT) Alkaline Phosphatase 192 H Total Protein 6.7 Albumin 2.9 L Globulin 3.80 H Albumin/Globulin Ratio 0.76 Lab Scanned Report BLOOD TRANSFUSION Troponin I < 0.012 Subjective 24 Hr Interval Summary Free Text/Dictation left side chest rubbing like pain, intermittent, no radiation Exam/Review of Systems Exam Vitals Vital Signs Date Temp Pulse Resp B/P (MAP) Pulse Ox O2 O2 Flow FiO2 Time Delivery Rate 06/27/18 98.0 66 18 127/66 98 Room Air 07:18 (86) Intake and Output 06/26/18 06/26/18 06/27/18 1515:00 23:00 07:00 IntakeIntake Total 600 ml 2321.2 ml 150 ml BalanceBalance 600 ml 2321.2 ml 150 ml Constitutional: alert, oriented, well developed Psych: no complaints, nl mood/affect Head: normocephalic, atraumatic Eyes: nl conjunctiva, EOMI, nl lids, PERRL ENMT: nl external ears & nose, nl lips & teeth, nl nasal mucosa & septum Neck: supple, non-tender Respiratory: clear to auscultation, normal air movement; No congested cough, No crackles/rales, No diminished breath sounds, No intercostal retraction, No labored breathing, No respirations, No tactile fremitus, No wheezing, No other Cardiovascular: regular rate and rhythm, nl pulses; No bruits, No diastolic murmur, No edema, No gallop, No irregular rhythm, No jugular venous distention (JVD), No murmurs/extra sounds, No rub, No systolic murmur, No S3, No S4, No other Gastrointestinal: soft, nl liver, spleen, non-tender Musculoskeletal: nl extremities to inspection Extremities: normal pulses; No calf tenderness, No cyanosis, No clubbing, No edema, No pitting pedal edema, No palpable cord, No tenderness, No other Neurological: [employer] II-XII intact, nl mental status, nl speech, nl strength Results Results 24hrs Laboratory Tests Test 06/27/18 05:37 06/27/18 07:32 06/27/18 11:54 White Blood Count 1.8 L Red Blood Count 4.04 L Hemoglobin 10.4 L Hematocrit 32.8 L Mean Corpuscular Volume 81.2 L Mean Corpuscular Hemoglobin 25.7 L Mean Corpuscular 31.7 L Hemoglobin Concent Red Cell Distribution Width 20.1 H Platelet Count 44 L Mean Platelet Volume Immature Granulocytes % 0.000 L Neutrophils % Segmented Neutrophils 31 L % (Manual) Band Neutrophils % (Manual) 3 Lymphocytes % Lymphocytes % (Manual) 40 Reactive Lymphocytes % (Manual) 6 H Monocytes % Monocytes % (Manual) 11 Eosinophils % Eosinophils % (Manual) 4 Basophils % Basophils % (Manual) 5 H Nucleated Red Blood Cells % 0.0 Immature Granulocytes # 0.000 Neutrophils # Neutrophils # (Manual) 0.6 L Band Neutrophils # 0.0 Lymphocytes (Manual) 0.7 L Lymphocytes # Reactive Lymphocytes # 0.1 H Monocytes # Monocytes # (Manual) 0.1 L Eosinophils # Basophils # Basophils # (Manual) 0.0 Nucleated Red Blood Cells # Platelet Estimate DECREASED Giant Platelets 7 H Polychromasia 1+ Poikilocytosis 1+ Anisocytosis 1+ Macrocytosis 1+ Target Cells 1+ Ovalocytes 1+ Elliptocytes 1+ Sodium Level 140 Potassium Level 3.6 Chloride Level 107 Carbon Dioxide Level 24 Anion Gap 9 Blood Urea Nitrogen 9 Creatinine 0.46 L Est Glomerular Filtrat > 60 Rate mL/min Glucose Level 83 Calcium Level 8.3 L Magnesium Level 1.7 Total Bilirubin 1.2 Direct Bilirubin 0.00 Indirect Bilirubin 1.2 H Aspartate Amino 101 H Transf (AST/SGOT) Alanine 64 Aminotransferase (ALT/SGPT) Alkaline Phosphatase 192 H Total Protein 6.7 Albumin 2.9 L Globulin 3.80 H Albumin/Globulin Ratio 0.76 Lab Scanned Report BLOOD TRANSFUSION Troponin I < 0.012 Medications Medication Current Medications IV Flush (NS 3 ml) 3 ml PER PROTOCOL IV ; Start 06/17/18 at 15:30 Multivitamins 10 ml/Thiamine HCl 100 mg/Folic Acid 1 mg/Sodium Chloride 1,011.2 ml @ 125 mls/ hr DAILY@09 IVPB Last administered on 06/27/18at 08:50; Admin Dose 125 MLS/HR; Start 06/18/18 at 09:00 Lorazepam (Ativan) 2 mg Q10MIN PRN IV seizure; Start 06/17/18 at 15:30 Ondansetron HCl (Zofran Inj) 4 mg Q6H PRN IV NAUSEA AND/OR VOMITING Last administered on 06/21/18 18:52; Admin Dose 4 MG; Start 06/18/18 at 11:00 Labetalol HCl (Labetalol) 10 mg Q4H PRN IV SBP > 160 Last administered on 06/18/18 12:26; Admin Dose 10 MG; Start 06/18/18 at 12:30 Acetaminophen (Tylenol Tab) 650 mg Q6H PRN PO MILD PAIN(1-3)OR ELEVATED TEMP Last administered on 06/27/18 03:17; Admin Dose 650 MG; Start 06/19/18 at 17:30 Propranolol HCl (Inderal) 10 mg BID PO Last administered on 06/27/18 08:43; Admin Dose 10 MG; Start 06/22/18 at 09:00 Lorazepam (Ativan) 2 mg Q2H PRN IV FOR SEVERE AGITATION Last administered on 06/25/18 22:46; Admin Dose 2 MG; Start 06/22/18 at 12:00 Morphine Sulfate (morphine) 2 mg Q4H PRN IV SEVERE PAIN LEVEL 7-10 Last administered on 06/27/18 11:27; Admin Dose 2 MG; Start 06/22/18 at 12:00 Rifaximin (Xifaxan) 550 mg BID PO Last administered on 06/27/18 08:43; Admin Dose 550 MG; Start 06/22/18 at 21:00 Chlordiazepoxide (Librium) 25 mg DAILY PO Last administered on 06/27/18 08:43; Admin Dose 25 MG; Start 06/26/18 at 09:00; Stop 06/28/18 at 08:59 Lactulose (Enulose) 30 gm BID PO Last administered on 06/27/18 08:43; Admin Dose 30 GM; Start 06/25/18 at 21:00 Pantoprazole (Protonix Tab) 40 mg BID@,18 PO Last administered on 06/27/18 05:42; Admin Dose 40 MG; Start 06/26/18 at 18:00 ELIDIA REAVES MD Jun 27, 2018 15:29
--- NOTE | 2018-06-27 18:26 | RADRPT ---
Echocardiogram Report Patient Name: Braxton MCCLELLAN ID: [id number] : 1975 (43y 5m)Study Date: 06/27/2018 4:23:42 PM Gender: MAccession #: [id number] Tech: Jerome Russell [facility] Location: 55[address] Ref.Physician: ELIDIA REAVES Height(Cm): BSA: Weight(Kg): Quality: AdequateAccount #: Procedures: Echocardiographic Report: Transthoracic echocardiogram with complete 2D, M-Mode, and doppler examination. Indications: Chest Pain. Measurements: 2D/M Mode Doppler Measurement Value Normal Range Measurement Value Normal Range LVIDd 2D 4.9 [ 4.2 - 5.8 ] cm AV Peak Ermias 1.7 [ 100.0 - 170.0 ] cm/sec LVIDs 2D 2.8 [ 2.5 - 4.0 ] cm AV Peak PG 11.0 [ 2.0 - 9.0 ] mmHg LVPWd 2D 0.8 [ 0.6 - 1.0 ] cm LVOT Peak Ermias 1.0 [ 70.0 - 110.0 ] cm/sec IVSd 2D 0.9 [ 0.6 - 1.0 ] cm LVOT Peak PG 4.0 [ 2.0 - 6.0 ] mmHg AoR Diam 2D 2.4 [ 2.6 - 3.4 ] cm MV E Peak Ermias 1.1 [ 60.0 - 130.0 ] cm/sec EDV 2D 112.0 [ 62.0 - 150.0 ] ml MV A Peak Ermias 0.8 [ 100.0 - 120.0 ] cm/sec ESV 2D 29.6 [ 21.0 - 61.0 ] ml MV E/A 1.4 [ 0.8 - 1.5 ] ratio EF 2D 73.6 [ 52.0 - 72.0 ] percent MV Decel Time 151 [ 104 - 258 ] msec LA Dimen 2D 3.9 [ 3.0 - 4.0 ] cm Lat E` Ermias 0.2 [ 10.0 - 15.0 ] cm/sec Lateral E/E` 6.9 [ 1.0 - 2.0 ] ratio Med E` Ermias 0.1 cm/sec MV E/A 1.4 [ 0.8 - 1.5 ] ratio TR Peak Ermias 2.8 [ 100.0 - 280.0 ] cm/sec TR Peak PG 31.0 mmHg RVSP 34.0 [ 10.0 - 36.0 ] mmHg Findings: Left Ventricle: Normal left ventricular systolic function. Normal left ventricular cavity size. Normal left ventricular wall thickness. Ejection fraction is visually estimated at 60 %. Tissue Doppler/Mitral Doppler indices are within normal limits. Right Ventricle: Normal right ventricular size. Normal right ventricular systolic function. Left Atrium: The left atrium is normal in size. Right Atrium: The right atrium is normal in size. Mitral Valve: Normal appearance of the mitral valve. Trace mitral regurgitation. Aortic Valve: Normal appearance of the aortic valve. No significant aortic stenosis or insufficiency. Tricuspid Valve: Normal appearance of the tricuspid valve. Estimated peak PA systolic pressure 19 mmHg. There is mild tricuspid regurgitation. Pulmonic Valve: Pulmonic valve not well visualized. Pericardium: Normal pericardium with no significant pericardial effusion. Aorta: Normal aortic root. IVC: Normal size and normal respiratory collapse consistent with normal right atrial pressure. Conclusions: Normal left ventricular systolic and diastolic function. Trace mitral regurgitation. Mild tricuspid regurgitation with normal pulmonary pressures. Electronically Signed By: Aleshia Garcia 2018-06-27 18:25:42 PDT
--- NOTE | 2018-06-27 19:11 | CONS ---
Assessment/Plan Assessment/Plan Hospital Course (Demo Recall) 43 yo with chest pain probably due to gi causes. Recommendation: No further cardiac workup needed, treat underlying GI issues. Consultation Date/Type/Reason Admit Date/Time Date of Consultation: Jun 27, 2018 Type of Consult Cardiology Reason for Consultation chest pain Requesting Provider: ELIDIA REAVES MD Date/Time of Note DATE: 06/27/18 TIME: 19:03 Hx of Present Illness 43 yo with h/o alcoholic liver disease admitted with gi bleeding. Today patient complained of chest pain. History obtained with aid of call or contact centre coach. Pain was sharp in nature, lasted for about a minute, associated with shortness of breath. It occurred four times today, the most recent time was while in the bathroom. He also has pain in his right upper abdomen. No prior heart problems. Constitutional: no complaints Eyes: no complaints ENT: no complaints Respiratory: shortness of breath Cardiovascular: chest pain Gastrointestinal: pain Genitourinary: no complaints Musculoskeletal: no complaints Skin: no complaints Neurologic: no complaints Endocrine: no complaints Lymphatic: no complaints Psychological: no complaints Immunologic: no complaints Past Medical History Medical History: GI bleed, other (alcoholic liver disease) Home Meds Active Scripts Ondansetron Hcl* (Zofran*) 4 Mg Tablet, 4 MG PO Q6H PRN for NAUSEA AND OR VOMITING, #12 TAB Prov:FARHAN HASSAN MD 05/06/18 Pantoprazole* (Protonix*) 40 Mg Tablet.dr, 40 MG PO DAILY, #30 TAB 2 Refills Prov:ELVIS JORGENSEN 02/06/18 Propranolol Hcl* (Propranolol Hcl*) 20 Mg Tablet, 20 MG PO TID, #90 TAB 3 Refills Prov:ELVIS JORGENSEN 02/06/18 Thiamine* (Thiamine*) 100 Mg Tablet, 100 MG PO DAILY, #30 TAB 2 Refills Prov:ELVIS JORGENSEN 02/06/18 Folic Acid* (Folic Acid*) 1 Mg Tablet, 1 MG PO DAILY, #30 TAB 2 Refills Prov:ELVIS JORGENSEN 02/06/18 Acetaminophen* (Tylenol*) 325 Mg Tablet, 650 MG PO Q6H PRN for PAIN LEVEL 1-3 OR FEVER, #30 TAB Prov:ELVIS JORGENSEN 02/06/18 Medications Current Medications IV Flush (NS 3 ml) 3 ml PER PROTOCOL IV ; Start 06/17/18 at 15:30 Multivitamins 10 ml/Thiamine HCl 100 mg/Folic Acid 1 mg/Sodium Chloride 1,011.2 ml @ 125 mls/ hr DAILY@09 IVPB Last administered on 06/27/18 08:50; Admin Dose 125 MLS/HR; Start 06/18/18 at 09:00 Lorazepam (Ativan) 2 mg Q10MIN PRN IV seizure; Start 06/17/18 at 15:30 Ondansetron HCl (Zofran Inj) 4 mg Q6H PRN IV NAUSEA AND/OR VOMITING Last administered on 06/21/18 18:52; Admin Dose 4 MG; Start 06/18/18 at 11:00 Labetalol HCl (Labetalol) 10 mg Q4H PRN IV SBP > 160 Last administered on 06/18/18 12:26; Admin Dose 10 MG; Start 06/18/18 at 12:30 Acetaminophen (Tylenol Tab) 650 mg Q6H PRN PO MILD PAIN(1-3)OR ELEVATED TEMP Last administered on 06/27/18 03:17; Admin Dose 650 MG; Start 06/19/18 at 17:30 Propranolol HCl (Inderal) 10 mg BID PO Last administered on 06/27/18 08:43; A dmin Dose 10 MG; Start 06/22/18 at 09:00 Lorazepam (Ativan) 2 mg Q2H PRN IV FOR SEVERE AGITATION Last administered on 06/25/18 22:46; Admin Dose 2 MG; Start 06/22/18 at 12:00 Morphine Sulfate (morphine) 2 mg Q4H PRN IV SEVERE PAIN LEVEL 7-10 Last administered on 06/27/18 17:54; Admin Dose 2 MG; Start 06/22/18 at 12:00 Rifaximin (Xifaxan) 550 mg BID PO Last administered on 06/27/18 08:43; Admin Dose 550 MG; Start 06/22/18 at 21:00 Chlordiazepoxide (Librium) 25 mg DAILY PO Last administered on 06/27/18 08:43; Admin Dose 25 MG; Start 06/26/18 at 09:00; Stop 06/28/18 at 08:59 Lactulose (Enulose) 30 gm BID PO Last administered on 06/27/18at 08:43; Admin Dose 30 GM; Start 06/25/18 at 21:00 Pantoprazole (Protonix Tab) 40 mg BID@06,18 PO Last administered on 06/27/18at 17:41; Admin Dose 40 MG; Start 06/26/18 at 18:00 Allergies: Coded Allergies: No Known Allergy (Unverified , 01/21/16) Past Surgical History Past Surgical Hx: endoscopy Family History Significant Family History: no pertinent family hx Social History Alcohol Use: heavy Smoking Status: Current every day smoker Exam/Review of Systems Vital Signs Vitals Vital Signs Date Temp Pulse Resp B/P (MAP) Pulse Ox O2 O2 Flow FiO2 Time Delivery Rate 06/27/18 98.3 71 20 133/76 98 Room Air 14:25 (95) Intake and Output 06/26/18 06/26/18 06/27/18 1515:00 23:00 07:00 IntakeIntake Total 600 ml 2321.2 ml 150 ml BalanceBalance 600 ml 2321.2 ml 150 ml Exam Constitutional: alert, oriented, well developed Psych: other (flat affect) Head: normocephalic, atraumatic Eyes: nl conjunctiva, EOMI, nl lids, nl sclera ENMT: nl external ears & nose, nl lips & teeth Neck: supple; No jvd, No bruits Respiratory: clear to auscultation, normal air movement Cardiovascular: regular rate and rhythm, nl pulses, murmurs/extra sounds (2/6 systolic murmur at left lower sternal border) Gastrointestinal: soft, nl liver, spleen, non-tender Musculoskeletal: nl extremities to inspection Extremities: normal pulses Neurological: nl mental status, nl speech Skin: nl turgor; No rash or lesions Labs Result Diagram: 06/27/1853606/27/18536 Results 24hrs Laboratory Tests Test 06/27/18 05:37 06/27/18 07:32 06/27/18 11:54 White Blood Count 1.8 L Red Blood Count 4.04 L Hemoglobin 10.4 L Hematocrit 32.8 L Mean Corpuscular Volume 81.2 L Mean Corpuscular Hemoglobin 25.7 L Mean Corpuscular 31.7 L Hemoglobin Concent Red Cell Distribution Width 20.1 H Platelet Count 44 L Mean Platelet Volume Immature Granulocytes % 0.000 L Neutrophils % Segmented Neutrophils 31 L % (Manual) Band Neutrophils % (Manual) 3 Lymphocytes % Lymphocytes % (Manual) 40 Reactive Lymphocytes % (Manual) 6 H Monocytes % Monocytes % (Manual) 11 Eosinophils % Eosinophils % (Manual) 4 Basophils % Basophils % (Manual) 5 H Nucleated Red Blood Cells % 0.0 Immature Granulocytes # 0.000 Neutrophils # Neutrophils # (Manual) 0.6 L Band Neutrophils # 0.0 Lymphocytes (Manual) 0.7 L Lymphocytes # Reactive Lymphocytes # 0.1 H Monocytes # Monocytes # (Manual) 0.1 L Eosinophils # Basophils # Basophils # (Manual) 0.0 Nucleated Red Blood Cells # Platelet Estimate DECREASED Giant Platelets 7 H Polychromasia 1+ Poikilocytosis 1+ Anisocytosis 1+ Macrocytosis 1+ Target Cells 1+ Ovalocytes 1+ Elliptocytes 1+ Sodium Level 140 Potassium Level 3.6 Chloride Level 107 Carbon Dioxide Level 24 Anion Gap 9 Blood Urea Nitrogen 9 Creatinine 0.46 L Est Glomerular Filtrat > 60 Rate mL/min Glucose Level 83 Calcium Level 8.3 L Magnesium Level 1.7 Total Bilirubin 1.2 Direct Bilirubin 0.00 Indirect Bilirubin 1.2 H Aspartate Amino 101 H Transf (AST/SGOT) Alanine 64 Aminotransferase (ALT/SGPT) Alkaline Phosphatase 192 H Total Protein 6.7 Albumin 2.9 L Globulin 3.80 H Albumin/Globulin Ratio 0.76 Lab Scanned Report BLOOD TRANSFUSION Troponin I < 0.012 Imaging Imaging EKG from today shows nsr and is a normal ekg Echo today demonstrates normal lv systolic function, mild tricuspid regurgitation, trace mitral regurgitation Medications Medications Current Medications IV Flush (NS 3 ml) 3 ml PER PROTOCOL IV ; Start 06/17/18 at 15:30 Multivitamins 10 ml/Thiamine HCl 100 mg/Folic Acid 1 mg/Sodium Chloride 1,011.2 ml @ 125 mls/ hr DAILY@09 IVPB Last administered on 06/27/18at 08:50; Admin Dose 125 MLS/HR; Start 06/18/18 at 09:00 Lorazepam (Ativan) 2 mg Q10MIN PRN IV seizure; Start 06/17/18 at 15:30 Ondansetron HCl (Zofran Inj) 4 mg Q6H PRN IV NAUSEA AND/OR VOMITING Last administered on 06/21/18at 18:52; Admin Dose 4 MG; Start 06/18/18 at 11:00 Labetalol HCl (Labetalol) 10 mg Q4H PRN IV SBP > 160 Last administered on 06/18/18 12:26; Admin Dose 10 MG; Start 06/18/18 at 12:30 Acetaminophen (Tylenol Tab) 650 mg Q6H PRN PO MILD PAIN(1-3)OR ELEVATED TEMP Last administered on 06/27/18 03:17; Admin Dose 650 MG; Start 06/19/18 at 17:30 Propranolol HCl (Inderal) 10 mg BID PO Last administered on 06/27/18 08:43; Admin Dose 10 MG; Start 06/22/18 at 09:00 Lorazepam (Ativan) 2 mg Q2H PRN IV FOR SEVERE AGITATION Last administered on 06/25/18 22:46; Admin Dose 2 MG; Start 06/22/18 at 12:00 Morphine Sulfate (morphine) 2 mg Q4H PRN IV SEVERE PAIN LEVEL 7-10 Last administered on 06/27/18 17:54; Admin Dose 2 MG; Start 06/22/18 at 12:00 Rifaximin (Xifaxan) 550 mg BID PO Last administered on 06/27/18 08:43; Admin Dose 550 MG; Start 06/22/18 at 21:00 Chlordiazepoxide (Librium) 25 mg DAILY PO Last administered on 06/27/18 08:43; Admin Dose 25 MG; Start 06/26/18 at 09:00; Stop 06/28/18 at 08:59 Lactulose (Enulose) 30 gm BID PO Last administered on 06/27/18 08:43; Admin Dose 30 GM; Start 06/25/18 at 21:00 Pantoprazole (Protonix Tab) 40 mg BID@06,18 PO Last administered on 06/27/18 17:41; Admin Dose 40 MG; Start 06/26/18 at 18:00 KALYN ALCALA Jun 27, 2018 19:10
[2018-06-27 20:33] VITALS: BP 127/70; PULSE 72; RESP 18
[2018-06-28 02:05] VITALS: BP 115/59; PULSE 64; RESP 18
[2018-06-28] MEDS: PANTOPRAZOLE (EC) 40 MG TAB PO SCH ×2 (06:06→17:32)
[2018-06-28 08:07] VITALS: BP 110/61; PULSE 66; RESP 18
[2018-06-28] MEDS: RIFAXIMIN 550 MG TAB PO SCH ×2 (08:20→20:43)
[2018-06-28] MEDS: LACTULOSE 30ML CUP PO SCH ×2 (08:20→20:42)
[2018-06-28] MEDS: PROPRANOLOL 10 MG TAB PO SCH ×2 (08:21→20:47)
[2018-06-28] MEDS: MULTIVITAMINS 10 ML, THIAMINE 100 MG, FOLIC ACID 1 MG in SOD CHLORIDE 0.9% 1,000 ML IVPB SCH (08:44)
--- NOTE | 2018-06-28 12:34 | PN ---
Date/Time of Note Date/Time of Note DATE: 06/28/18 TIME: 12:31 Assessment/Plan VTE [place] [facility] [place]: 2 [place] [facility] [place] Yes Pharmacological prophylaxis: NA/contraindicated Pharm contraindication: liver dx Lines/Catheters IV [facility] Type (from [facility] Peripheral IV Urinary Cath still in place: No Assessment/Plan Assessment/Plan 1. Acute alcohol intoxication and withdrawal, librium is off, improved 2. GI bleeding, s/p EGD 06/21/18 with Grade 3/4 esophageal varices, post EVL x3, small fundal gastric varices, portal gastropathy, no active bleeding 3. Alcoholic liver disease 4. Pancytopenia, stable 5. Acute pancreatitis, resolved 6. Chest pain, atypical, negative troponin, no further cardiac work up per cardiology 7. Discharge when placement is available Result Diagram: 06/27/18 0537 06/28/18 0545 Results 24hrs Laboratory Tests Test 06/27/18 19:46 06/28/18 00:28 06/28/18 05:45 Troponin I < 0.012 < 0.012 Sodium Level 140 Potassium Level 3.7 Chloride Level 107 Carbon Dioxide Level 24 Anion Gap 9 Blood Urea Nitrogen 10 Creatinine 0.56 L Est Glomerular Filtrat Rate mL/min > 60 Glucose Level 86 Calcium Level 8.3 L Total Bilirubin 0.8 Direct Bilirubin 0.00 Indirect Bilirubin 0.8 Aspartate Amino Transf (AST/SGOT) 113 H Alanine Aminotransferase (ALT/SGPT) 67 Alkaline Phosphatase 215 H Total Protein 6.6 Albumin 2.9 L Globulin 3.70 H Albumin/Globulin Ratio 0.78 Subjective 24 Hr Interval Summary Free Text/Dictation walks with good balance chest pain is much less still with right upper abdominal pain but less Exam/Review of Systems Exam Vitals Vital Signs Date Temp Pulse Resp B/P (MAP) Pulse Ox O2 O2 Flow FiO2 Time Delivery Rate 06/28/18 97.5 66 18 110/61 98 Room Air 08:07 (77) Intake and Output 06/27/18 06/27/18 06/28/18 1515:00 23:00 07:00 IntakeIntake Total 240 ml 1401.2 ml BalanceBalance 240 ml 1401.2 ml Constitutional: alert, oriented, well developed Psych: no complaints, nl mood/affect Head: normocephalic, atraumatic Eyes: nl conjunctiva, EOMI, nl lids, PERRL ENMT: nl external ears & nose, nl lips & teeth, nl nasal mucosa & septum Neck: supple, non-tender Respiratory: clear to auscultation, normal air movement; No congested cough, No crackles/rales, No diminished breath sounds, No intercostal retraction, No labored breathing, No respirations, No tactile fremitus, No wheezing, No other Cardiovascular: regular rate and rhythm, nl pulses; No bruits, No diastolic murmur, No edema, No gallop, No irregular rhythm, No jugular venous distention (JVD), No murmurs/extra sounds, No rub, No systolic murmur, No S3, No S4, No other Gastrointestinal: soft, nl liver, spleen Musculoskeletal: nl extremities to inspection Extremities: normal pulses; No calf tenderness, No cyanosis, No clubbing, No edema, No pitting pedal edema, No palpable cord, No tenderness, No other Neurological: [employer] II-XII intact, nl mental status, nl speech, nl strength Results Results 24hrs Laboratory Tests Test 06/27/18 19:46 06/28/18 00:28 06/28/18 05:45 Troponin I < 0.012 < 0.012 Sodium Level 140 Potassium Level 3.7 Chloride Level 107 Carbon Dioxide Level 24 Anion Gap 9 Blood Urea Nitrogen 10 Creatinine 0.56 L Est Glomerular Filtrat Rate mL/min > 60 Glucose Level 86 Calcium Level 8.3 L Total Bilirubin 0.8 Direct Bilirubin 0.00 Indirect Bilirubin 0.8 Aspartate Amino Transf (AST/SGOT) 113 H Alanine Aminotransferase (ALT/SGPT) 67 Alkaline Phosphatase 215 H Total Protein 6.6 Albumin 2.9 L Globulin 3.70 H Albumin/Globulin Ratio 0.78 Medications Medication Current Medications IV Flush (NS 3 ml) 3 ml PER PROTOCOL IV ; Start 06/17/18 at 15:30 Multivitamins 10 ml/Thiamine HCl 100 mg/Folic Acid 1 mg/Sodium Chloride 1,011.2 ml @ 125 mls/ hr DAILY@09 IVPB Last administered on 06/28/18at 08:44; Admin Dose 125 MLS/HR; Start 06/18/18 at 09:00 Lorazepam (Ativan) 2 mg Q10MIN PRN IV seizure; Start 06/17/18 at 15:30 Ondansetron HCl (Zofran Inj) 4 mg Q6H PRN IV NAUSEA AND/OR VOMITING Last administered on 06/21/18 18:52; Admin Dose 4 MG; Start 06/18/18 at 11:00 Labetalol HCl (Labetalol) 10 mg Q4H PRN IV SBP > 160 Last administered on 06/18/18 12:26; Admin Dose 10 MG; Start 06/18/18 at 12:30 Acetaminophen (Tylenol Tab) 650 mg Q6H PRN PO MILD PAIN(1-3)OR ELEVATED TEMP Last administered on 06/27/18 03:17; Admin Dose 650 MG; Start 06/19/18 at 17:30 Propranolol HCl (Inderal) 10 mg BID PO Last administered on 06/28/18 08:21; Admin Dose 10 MG; Start 06/22/18 at 09:00 Lorazepam (Ativan) 2 mg Q2H PRN IV FOR SEVERE AGITATION Last administered on 06/25/18 22:46; Admin Dose 2 MG; Start 06/22/18 at 12:00 Morphine Sulfate (morphine) 2 mg Q4H PRN IV SEVERE PAIN LEVEL 7-10 Last administered on 06/27/18 17:54; Admin Dose 2 MG; Start 06/22/18 at 12:00 Rifaximin (Xifaxan) 550 mg BID PO Last administered on 06/28/18 08:20; Admin Dose 550 MG; Start 06/22/18 at 21:00 Lactulose (Enulose) 30 gm BID PO Last administered on 06/28/18 08:20; Admin Dose 30 GM; Start 06/25/18 at 21:00 Pantoprazole (Protonix Tab) 40 mg BID@,18 PO Last administered on 06/28/18 06:06; Admin Dose 40 MG; Start 06/26/18 at 18:00 ELIDIA REAVES MD Jun 28, 2018 12:34
--- NOTE | 2018-06-28 13:21 | PN ---
Date/Time of Note Date/Time of Note DATE: 06/28/18 TIME: 13:18 Assessment/Plan VTE Prophylaxis Risk score (from [facility])>0 risk: 2 SCD applied (from [facility]): Yes Pharmacological prophylaxis: other (scds) Lines/Catheters IV Catheter Type (from [facility]): Peripheral IV Urinary Cath still in place: No Assessment/Plan Hospital Course Assessment: Hematemesis- resolved EGD 06/21/1819 Grade 3/4 esophageal varices, post EVL x3 Small fundal gastric varices Portal gastropathy Otherwise normal EGD ETOH withdrawal Encephalopathy- resolved Elevated LFTs with direct hyperbilirubinemia (2/2 to liver disease)- trending down -MRCP No evidence of biliary duct obstruction Alcoholic liver cirrhosis - DF on admission 22.6 Pancytopenia- likely 2/2 excessive ETOH abuse Elevated lipase -resolved -MRCP- pancreas not well visualized Hepatitis serology is negative Plan: Diet as tolerated (currently 2gm Na soft) Continue current regimen (Xifaxan and lactulose (titrate to 3-4 bms in a 24/hr period) PPI BID/propranolol 10 mg BID- as BP/Hr allows) Repeat EGD/EVL in 3 months Monitor LFT's Continue OT/PT D/c planning per hospitalist- pt would benefit from acute rehab facility when ready for d/c- placement pending Patient seen in collaboration with Dr. Murphy/Ramandeep Subjective: Course reviewed with nursing staff Patient interviewed and examined All labs, imaging and other results reviewed No over night events Patient doing well, no c/o nausea or vomiting or chest pain pt c/o some RUQ discomfort. He is tolerating his diet well. Will continue to monitor for now. PHYSICAL EXAMINATION: GENERAL: Alert and oriented x3, weakness greatly improved. EARS/NOSE AND THROAT: Ears normal, nose normal NECK: Supple, no masses CHEST: Inspection within normal limits. CARDIOVASCULAR: Heart: Regular rate and rhythm RESPIRATORY: Lungs clear to auscultation GASTROINTESTINAL AND LIVER: Abdomen: Soft, no tenderness, non-distended, no hernias, no masses, no organomegaly, no guarding, no rebound tenderness, normoac tive bowel sounds. Rectal: Deferred. EXTREMITIES: No cyanosis, clubbing or edema. Result Diagram: 06/27/18 0537 06/28/18 0545 Results 24hrs Laboratory Tests Test 06/27/18 19:46 3/13/19 00:28 06/28/18 05:45 Troponin I < 0.012 < 0.012 Sodium Level 140 Potassium Level 3.7 Chloride Level 107 Carbon Dioxide Level 24 Anion Gap 9 Blood Urea Nitrogen 10 Creatinine 0.56 L Est Glomerular Filtrat Rate mL/min > 60 Glucose Level 86 Calcium Level 8.3 L Total Bilirubin 0.8 Direct Bilirubin 0.00 Indirect Bilirubin 0.8 Aspartate Amino Transf (AST/SGOT) 113 H Alanine Aminotransferase (ALT/SGPT) 67 Alkaline Phosphatase 215 H Total Protein 6.6 Albumin 2.9 L Globulin 3.70 H Albumin/Globulin Ratio 0.78 Exam/Review of Systems Exam Vitals Vital Signs Date Temp Pulse Resp B/P (MAP) Pulse Ox O2 O2 Flow FiO2 Time Delivery Rate 06/28/18 97.5 66 18 110/61 98 Room Air 08:07 (77) Intake and Output 06/27/18 06/27/18 06/28/18 1515:00 23:00 07:00 IntakeIntake Total 240 ml 1401.2 ml BalanceBalance 240 ml 1401.2 ml Results Results 24hrs Laboratory Tests Test 06/27/18 19:46 06/28/18 00:28 06/28/18 05:45 Troponin I < 0.012 < 0.012 Sodium Level 140 Potassium Level 3.7 Chloride Level 107 Carbon Dioxide Level 24 Anion Gap 9 Blood Urea Nitrogen 10 Creatinine 0.56 L Est Glomerular Filtrat Rate mL/min > 60 Glucose Level 86 Calcium Level 8.3 L Total Bilirubin 0.8 Direct Bilirubin 0.00 Indirect Bilirubin 0.8 Aspartate Amino Transf (AST/SGOT) 113 H Alanine Aminotransferase (ALT/SGPT) 67 Alkaline Phosphatase 215 H Total Protein 6.6 Albumin 2.9 L Globulin 3.70 H Albumin/Globulin Ratio 0.78 Medications Medication Current Medications IV Flush (NS 3 ml) 3 ml PER PROTOCOL IV ; Start 06/17/18 at 15:30 Multivitamins 10 ml/Thiamine HCl 100 mg/Folic Acid 1 mg/Sodium Chloride 1,011.2 ml @ 125 mls/ hr DAILY@09 IVPB Last administered on 06/28/18at 08:44; Admin Dose 125 MLS/HR; Start 06/18/18 at 09:00 Lorazepam (Ativan) 2 mg Q10MIN PRN IV seizure; Start 06/17/18 at 15:30 Ondansetron HCl (Zofran Inj) 4 mg Q6H PRN IV NAUSEA AND/OR VOMITING Last administered on 06/21/18 18:52; Admin Dose 4 MG; Start 06/18/18 at 11:00 Labetalol HCl (Labetalol) 10 mg Q4H PRN IV SBP > 160 Last administered on 06/18/18 12:26; Admin Dose 10 MG; Start 06/18/18 at 12:30 Acetaminophen (Tylenol Tab) 650 mg Q6H PRN PO MILD PAIN(1-3)OR ELEVATED TEMP Last administered on 06/27/18 03:17; Admin Dose 650 MG; Start 06/19/18 at 17:30 Propranolol HCl (Inderal) 10 mg BID PO Last administered on 06/28/18 08:21; Admin Dose 10 MG; Start 06/22/18 at 09:00 Lorazepam (Ativan) 2 mg Q2H PRN IV FOR SEVERE AGITATION Last administered on 06/25/18 22:46; Admin Dose 2 MG; Start 06/22/18 at 12:00 Morphine Sulfate (morphine) 2 mg Q4H PRN IV SEVERE PAIN LEVEL 7-10 Last administered on 06/27/18 17:54; Admin Dose 2 MG; Start 06/22/18 at 12:00 Rifaximin (Xifaxan) 550 mg BID PO Last administered on 06/28/18 08:20; Admin Dose 550 MG; Start 06/22/18 at 21:00 Lactulose (Enulose) 30 gm BID PO Last administered on 06/28/18 08:20; Admin D ose 30 GM; Start 06/25/18 at 21:00 Pantoprazole (Protonix Tab) 40 mg BID@,18 PO Last administered on 06/28/18 06:06; Admin Dose 40 MG; Start 06/26/18 at 18:00 MANNY HURT Jun 28, 2018 13:21
[2018-06-28 14:00] VITALS: BP 121/79; PULSE 78; RESP 18
--- NOTE | 2018-06-28 16:05 | RADRPT ---
Vent Rate: 68 bpm RR Interval: 0 msec NV Interval: 176 msec QRS Duration: 90 msec QT Interval: 386 msec QTC Interval: 410 msec P-R-T [place]: 29 - 25 - 23 degrees Normal sinus rhythm Normal ECG Electronically Signed By: Ibrahima Iraheta
[2018-06-28 19:48] VITALS: BP 136/74; PULSE 73; RESP 20
[2018-06-28] MEDS: morphine 2 MG INJ IV PRN (20:48)
[2018-06-29] MEDS: morphine 2 MG INJ IV PRN ×2 (01:18→21:26)
[2018-06-29 02:00] VITALS: BP 142/76; PULSE 75; RESP 18
[2018-06-29] MEDS: LORAZEPAM 2 MG INJ IV PRN (03:32)
[2018-06-29] MEDS: PANTOPRAZOLE (EC) 40 MG TAB PO SCH ×2 (05:01→18:27)
[2018-06-29 07:55] VITALS: BP 114/61; PULSE 67; RESP 17
[2018-06-29] MEDS: PROPRANOLOL 10 MG TAB PO SCH ×2 (10:40→21:22)
[2018-06-29] MEDS: LACTULOSE 30ML CUP PO SCH ×2 (10:40→21:20)
[2018-06-29] MEDS: RIFAXIMIN 550 MG TAB PO SCH ×2 (10:40→21:20)
[2018-06-29] MEDS: MULTIVITAMINS 10 ML, THIAMINE 100 MG, FOLIC ACID 1 MG in SOD CHLORIDE 0.9% 1,000 ML IVPB SCH (12:38)
--- NOTE | 2018-06-29 13:23 | PN ---
Date/Time of Note Date/Time of Note DATE: 06/29/18 TIME: 13:21 Assessment/Plan VTE Prophylaxis Risk score (from Nsg)>0 risk: 2 SCD applied (from [facility]): Yes Pharmacological prophylaxis: other (scds) Lines/Catheters IV Catheter Type (from Nrsg): Peripheral IV Urinary Cath still in place: No Assessment/Plan Hospital Course Assessment: Hematemesis- resolved EGD 06/21/1819 Grade 3/4 esophageal varices, post EVL x3 Small fundal gastric varices Portal gastropathy Otherwise normal EGD ETOH withdrawal Encephalopathy- resolved Elevated LFTs with direct hyperbilirubinemia (2/2 to liver disease)- trending down -MRCP No evidence of biliary duct obstruction Alcoholic liver cirrhosis - DF on admission 22.6 Pancytopenia- likely 2/2 excessive ETOH abuse Elevated lipase -resolved -MRCP- pancreas not well visualized Hepatitis serology is negative Plan: Diet as tolerated (currently 2gm Na soft) Continue current regimen (Xifaxan and lactulose (titrate to 3-4 bms in a 24/hr period) PPI BID/propranolol 10 mg BID- as BP/Hr allows) Repeat EGD/EVL in 3 months Continue OT/PT D/c planning per hospitalist- pt would benefit from acute rehab facility when ready for d/c- placement pending No new GI recommendations- Patient seen in collaboration with Dr. Murphy/Ramandeep Subjective: Course reviewed with nursing staff Patient interviewed and examined All labs, imaging and other results reviewed No over night events Patient doing well, no c/o nausea or vomiting or chest pain Pt states RUQ discomfort has improved. He is tolerating his diet well. Encourage ambulation and deep breathing PHYSICAL EXAMINATION: GENERAL: Alert and oriented x3, weakness greatly improved. EARS/NOSE AND THROAT: Ears normal, nose normal NECK: Supple, no masses CHEST: Inspection within normal limits. CARDIOVASCULAR: Heart: Regular rate and rhythm RESPIRATORY: Lungs clear to auscultation GASTROINTESTINAL AND LIVER: Abdomen: Soft, mild RUQ tenderness- improved, no hernias, no masses, no guarding, no rebound tenderness, normoactive bowel sounds. Rectal: Deferred. EXTREMITIES: No cyanosis, clubbing or edema. Result Diagram: 06/27/18 0537 06/28/18 1416 Results 24hrs Laboratory Tests Test 06/28/18 14:16 Sodium Level 139 Potassium Level 3.8 Chloride Level 104 Carbon Dioxide Level 24 Anion Gap 11 Blood Urea Nitrogen 9 Creatinine 0.53 L Est Glomerular Filtrat Rate mL/min > 60 Glucose Level 106 Calcium Level 8.7 Total Bilirubin 0.7 Direct Bilirubin 0.00 Indirect Bilirubin 0.7 Aspartate Amino Transf (AST/SGOT) 147 H Alanine Aminotransferase (ALT/SGPT) 90 H Alkaline Phosphatase 261 H Total Protein 7.3 Albumin 3.1 L Globulin 4.20 H Albumin/Globulin Ratio 0.73 Exam/Review of Systems Exam Vitals Vital Signs Date Temp Pulse Resp B/P (MAP) Pulse Ox O2 O2 Flow FiO2 Time Delivery Rate 06/29/18 98.0 67 17 114/61 96 Room Air 07:55 (78) Intake and Output 06/28/18 06/28/18 06/29/18 1515:00 23:00 07:00 IntakeIntake Total 720 ml 1380 ml BalanceBalance 720 ml 1380 ml Results Results 24hrs Laboratory Tests Test 06/28/18 14:16 Sodium Level 139 Potassium Level 3.8 Chloride Level 104 Carbon Dioxide Level 24 Anion Gap 11 Blood Urea Nitrogen 9 Creatinine 0.53 L Est Glomerular Filtrat Rate mL/min > 60 Glucose Level 106 Calcium Level 8.7 Total Bilirubin 0.7 Direct Bilirubin 0.00 Indirect Bilirubin 0.7 Aspartate Amino Transf (AST/SGOT) 147 H Alanine Aminotransferase (ALT/SGPT) 90 H Alkaline Phosphatase 261 H Total Protein 7.3 Albumin 3.1 L Globulin 4.20 H Albumin/Globulin Ratio 0.73 Medications Medication Current Medications IV Flush (NS 3 ml) 3 ml PER PROTOCOL IV ; Start 06/17/18 at 15:30 Multivitamins 10 ml/Thiamine HCl 100 mg/Folic Acid 1 mg/Sodium Chloride 1,011.2 ml @ 125 mls/ hr DAILY@09 IVPB Last administered on 06/29/18at 12:38; Admin Dose 125 MLS/HR; Start 06/18/18 at 09:00 Lorazepam (Ativan) 2 mg Q10MIN PRN IV seizure; Start 06/17/18 at 15:30 Ondansetron HCl (Zofran Inj) 4 mg Q6H PRN IV NAUSEA AND/OR VOMITING Last administered on 06/21/18at 18:52; Admin Dose 4 MG; Start 06/18/18 at 11:00 Labetalol HCl (Labetalol) 10 mg Q4H PRN IV SBP > 160 Last administered on 06/18/18 12:26; Admin Dose 10 MG; Start 06/18/18 at 12:30 Acetaminophen (Tylenol Tab) 650 mg Q6H PRN PO MILD PAIN(1-3)OR ELEVATED TEMP Last administered on 06/27/18 03:17; Admin Dose 650 MG; Start 06/19/18 at 17:30 Propranolol HCl (Inderal) 10 mg BID PO Last administered on 06/29/18 10:40; Admin Dose 10 MG; Start 06/22/18 at 09:00 Lorazepam (Ativan) 2 mg Q2H PRN IV FOR SEVERE AGITATION Last administered on 06/29/18 03:32; Admin Dose 2 MG; Start 06/22/18 at 12:00 Morphine Sulfate (morphine) 2 mg Q4H PRN IV SEVERE PAIN LEVEL 7-10 Last administered on 06/29/18 01:18; Admin Dose 2 MG; Start 06/22/18 at 12:00 Rifaximin (Xifaxan) 550 mg BID PO Last administered on 06/29/18 10:40; Admin Dose 550 MG; Start 06/22/18 at 21:00 Lactulose (Enulose) 30 gm BID PO Last administered on 06/29/18 10:40; Admin Dose 30 GM; Start 06/25/18 at 21:00 Pantoprazole (Protonix Tab) 40 mg BID@06,18 PO Last administered on 06/29/18 05:01; Admin Dose 40 MG; Start 06/26/18 at 18:00 MANNY HURT Jun 29, 2018 13:23
--- NOTE | 2018-06-29 15:26 | PN ---
Date/Time of Note Date/Time of Note DATE: 06/29/18 TIME: 15:25 Assessment/Plan VTE Prophylaxis Risk score (from Ns)>0 risk: 2 SCD applied (from [facility] [place]): Yes Pharmacological prophylaxis: NA/contraindicated Pharm contraindication: bleeding Lines/Catheters IV Catheter Type (from [facility]): Peripheral IV Urinary Cath still in place: No Assessment/Plan Assessment/Plan 1. Acute alcohol intoxication and withdrawal, librium is off, improved 2. GI bleeding, s/p EGD 06/21/18 with Grade 3/4 esophageal varices, post EVL x3, small fundal gastric varices, portal gastropathy, no active bleeding, on protonix 3. Alcoholic liver disease 4. Pancytopenia, stable 5. Acute pancreatitis, resolved 6. Chest pain, resolved 7. Discharge when placement is available Result Diagram: 06/27/18 0537 06/28/18 1416 Subjective 24 Hr Interval Summary Free Text/Dictation no event Exam/Review of Systems Exam Vitals Vital Signs Date Temp Pulse Resp B/P (MAP) Pulse Ox O2 O2 Flow FiO2 Time Delivery Rate 06/29/18 98.0 67 17 114/61 96 Room Air 07:55 (78) Intake and Output 06/28/18 06/28/18 06/29/18 1515:00 23:00 07:00 IntakeIntake Total 720 ml 1380 ml BalanceBalance 720 ml 1380 ml Constitutional: alert, oriented, well developed Psych: no complaints, nl mood/affect Head: normocephalic, atraumatic Eyes: nl conjunctiva, EOMI, nl lids, PERRL ENMT: nl external ears & nose, nl lips & teeth, nl nasal mucosa & septum Neck: supple, non-tender Respiratory: clear to auscultation, normal air movement; No congested cough, No crackles/rales, No diminished breath sounds, No intercostal retraction, No labored breathing, No respirations, No tactile fremitus, No wheezing, No other Cardiovascular: regular rate and rhythm, nl pulses; No bruits, No diastolic murmur, No edema, No gallop, No irregular rhythm, No jugular venous distention (JVD), No murmurs/extra sounds, No rub, No systolic murmur, No S3, No S4, No other Gastrointestinal: soft, nl liver, spleen, non-tender Musculoskeletal: nl extremities to inspection Extremities: normal pulses; No calf tenderness, No cyanosis, No clubbing, No edema, No pitting pedal edema, No palpable cord, No tenderness, No other Neurological: LINE MAINTAINER SECTION II-XII intact, nl mental status, nl speech, nl strength Medications Medication Current Medications IV Flush (NS 3 ml) 3 ml PER PROTOCOL IV ; Start 06/17/18 at 15:30 Multivitamins 10 ml/Thiamine HCl 100 mg/Folic Acid 1 mg/Sodium Chloride 1,011.2 ml @ 125 mls/ hr DAILY@09 IVPB Last administered on 06/29/18 12:38; Admin Dose 125 MLS/HR; Start 06/18/18 at 09:00 Lorazepam (Ativan) 2 mg Q10MIN PRN IV seizure; Start 06/17/18 at 15:30 Ondansetron HCl (Zofran Inj) 4 mg Q6H PRN IV NAUSEA AND/OR VOMITING Last administered on 06/21/18 18:52; Admin Dose 4 MG; Start 06/18/18 at 11:00 Labetalol HCl (Labetalol) 10 mg Q4H PRN IV SBP > 160 Last administered on 06/18/18 12:26; Admin Dose 10 MG; Start 06/18/18 at 12:30 Acetaminophen (Tylenol Tab) 650 mg Q6H PRN PO MILD PAIN(1-3)OR ELEVATED TEMP Last administered on 06/27/18 03:17; Admin Dose 650 MG; Start 06/19/18 at 17:30 Propranolol HCl (Inderal) 10 mg BID PO Last administered on 06/29/18 10:40; Admin Dose 10 MG; Start 06/22/18 at 09:00 Lorazepam (Ativan) 2 mg Q2H PRN IV FOR SEVERE AGITATION Last administered on 06/29/18 03:32; Admin Dose 2 MG; Start 06/22/18 at 12:00 Morphine Sulfate (morphine) 2 mg Q4H PRN IV SEVERE PAIN LEVEL 7-10 Last administered on 06/29/18 01:18; Admin Dose 2 MG; Start 06/22/18 at 12:00 Rifaximin (Xifaxan) 550 mg BID PO Last administered on 06/29/18 10:40; Admin Dose 550 MG; Start 06/22/18 at 21:00 Lactulose (Enulose) 30 gm BID PO Last administered on 06/29/18at 10:40; Admin Dose 30 GM; Start 06/25/18 at 21:00 Pantoprazole (Protonix Tab) 40 mg BID@06,18 PO Last administered on 06/29/18at 05:01; Admin Dose 40 MG; Start 06/26/18 at 18:00 ELIDIA REAVES MD Jun 29, 2018 15:26
[2018-06-29 20:37] VITALS: BP 115/58; PULSE 72; RESP 18
[2018-06-30] MEDS: morphine 2 MG INJ IV PRN ×3 (02:55→21:16)
[2018-06-30 03:18] VITALS: BP 117/67; PULSE 80; RESP 20
[2018-06-30] MEDS: PANTOPRAZOLE (EC) 40 MG TAB PO SCH ×2 (05:38→18:17)
[2018-06-30 08:22] VITALS: BP 115/65; PULSE 68; RESP 17
[2018-06-30] MEDS: LACTULOSE 30ML CUP PO SCH ×2 (08:45→21:13)
[2018-06-30] MEDS: THIAMINE 100 MG TAB PO SCH (08:47)
[2018-06-30] MEDS: PROPRANOLOL 10 MG TAB PO SCH ×2 (08:47→21:14)
[2018-06-30] MEDS: FOLIC ACID 1 MG TAB PO SCH (08:47)
[2018-06-30] MEDS: RIFAXIMIN 550 MG TAB PO SCH ×2 (08:47→21:14)
--- NOTE | 2018-06-30 12:52 | PN ---
Date/Time of Note Date/Time of Note DATE: 06/30/18 TIME: 12:50 Assessment/Plan VTE Prophylaxis Risk score (from [facility] [place])>0 risk: 1 SCD applied (from [facility] [place]): Yes Pharmacological prophylaxis: other Pharm contraindication: liver dx Lines/Catheters [facility] Type (from [facility]): Peripheral IV Urinary Cath still in place: No Assessment/Plan Assessment/Plan 1. Acute alcohol intoxication and withdrawal, improved 2. GI bleeding, s/p EGD 06/21/18 with Grade 3/4 esophageal varices, post EVL x3, small fundal gastric varices, portal gastropathy, no active bleeding, on protonix 3. Alcoholic liver disease, chronic 4. Pancytopenia, stable 5. Acute pancreatitis, resolved 6. Chest pain, resolved 7. Discharge awaiting for placement Result Diagram: 06/30/18 0458 06/30/18 0458 Results 24hrs Laboratory Tests Test 06/30/18 04:58 06/30/18 06:33 White Blood Count 2.7 #L Red Blood Count 4.05 L Hemoglobin 10.3 L Hematocrit 33.2 L Mean Corpuscular Volume 82.0 Mean Corpuscular Hemoglobin 25.4 L Mean Corpuscular Hemoglobin Concent 31.0 L Red Cell Distribution Width 20.2 H Platelet Count 72 #L Mean Platelet Volume Immature Granulocytes % 0.000 L Neutrophils % 42.4 Lymphocytes % 36.8 Monocytes % 16.4 H Eosinophils % 3.3 Basophils % 1.1 Nucleated Red Blood Cells % 0.0 Immature Granulocytes # 0.000 Neutrophils # 1.1 L Lymphocytes # 1.0 Monocytes # 0.4 Eosinophils # 0.1 Basophils # 0.0 Nucleated Red Blood Cells # 0.0 Sodium Level 140 Potassium Level 3.9 Chloride Level 106 Carbon Dioxide Level 27 Anion Gap 7 Blood Urea Nitrogen 10 Creatinine 0.56 L Est Glomerular Filtrat Rate mL/min > 60 Glucose Level 77 Calcium Level 8.6 Total Bilirubin 0.6 Direct Bilirubin 0.00 Indirect Bilirubin 0.6 Aspartate Amino Transf (AST/SGOT) 147 H Alanine Aminotransferase (ALT/SGPT) 114 H Alkaline Phosphatase 259 H Total Protein 6.9 Albumin 3.0 L Globulin 3.90 H Albumin/Globulin Ratio 0.76 Lab Scanned Report BLOOD TRANSFUSION Subjective 24 Hr Interval Summary Free Text/Dictation no new complaint Exam/Review of Systems Exam Vitals Vital Signs Date Temp Pulse Resp B/P (MAP) Pulse Ox O2 O2 Flow FiO2 Time Delivery Rate 06/30/18 98.4 68 17 115/65 97 Room Air 08:22 (82) Intake and Output 06/29/18 06/29/18 06/30/18 1515:00 23:00 07:00 IntakeIntake Total 600 ml 1150 ml 320 ml BalanceBalance 600 ml 1150 ml 320 ml Constitutional: alert, oriented, well developed Head: normocephalic, atraumatic Eyes: nl conjunctiva, EOMI, nl lids, PERRL ENMT: nl external ears & nose, nl lips & teeth, nl nasal mucosa & septum Neck: supple, non-tender Respiratory: clear to auscultation, normal air movement; No congested cough, No crackles/rales, No diminished breath sounds, No intercostal retraction, No labored breathing, No respirations, No tactile fremitus, No wheezing, No other Cardiovascular: regular rate and rhythm, nl pulses; No bruits, No diastolic murmur, No edema, No gallop, No irregular rhythm, No jugular venous distention (JVD), No murmurs/extra sounds, No rub, No systolic murmur, No S3, No S4, No other Gastrointestinal: soft, nl liver, spleen Musculoskeletal: nl extremities to inspection Extremities: normal pulses; No calf tenderness, No cyanosis, No clubbing, No edema, No pitting pedal edema, No palpable cord, No tenderness, No other Neurological: EMERGENCY DEPARTMENT MANAGER II-XII intact, nl mental status, nl speech, nl strength Skin: nl turgor Results Results 24hrs Laboratory Tests Test 06/30/18 04:58 06/30/18 06:33 White Blood Count 2.7 #L Red Blood Count 4.05 L Hemoglobin 10.3 L Hematocrit 33.2 L Mean Corpuscular Volume 82.0 Mean Corpuscular Hemoglobin 25.4 L Mean Corpuscular Hemoglobin Concent 31.0 L Red Cell Distribution Width 20.2 H Platelet Count 72 #L Mean Platelet Volume Immature Granulocytes % 0.000 L Neutrophils % 42.4 Lymphocytes % 36.8 Monocytes % 16.4 H Eosinophils % 3.3 Basophils % 1.1 Nucleated Red Blood Cells % 0.0 Immature Granulocytes # 0.000 Neutrophils # 1.1 L Lymphocytes # 1.0 Monocytes # 0.4 Eosinophils # 0.1 Basophils # 0.0 Nucleated Red Blood Cells # 0.0 Sodium Level 140 Potassium Level 3.9 Chloride Level 106 Carbon Dioxide Level 27 Anion Gap 7 Blood Urea Nitrogen 10 Creatinine 0.56 L Est Glomerular Filtrat Rate mL/min > 60 Glucose Level 77 Calcium Level 8.6 Total Bilirubin 0.6 Direct Bilirubin 0.00 Indirect Bilirubin 0.6 Aspartate Amino Transf (AST/SGOT) 147 H Alanine Aminotransferase (ALT/SGPT) 114 H Alkaline Phosphatase 259 H Total Protein 6.9 Albumin 3.0 L Globulin 3.90 H Albumin/Globulin Ratio 0.76 Lab Scanned Report BLOOD TRANSFUSION Medications Medication Current Medications IV Flush (NS 3 ml) 3 ml PER PROTOCOL IV ; Start 06/17/18 at 15:30 Lorazepam (Ativan) 2 mg Q10MIN PRN IV seizure; Start 06/17/18 at 15:30 Ondansetron HCl (Zofran Inj) 4 mg Q6H PRN IV NAUSEA AND/OR VOMITING Last administered on 06/21/18 18:52; Admin Dose 4 MG; Start 06/18/18 at 11:00 Labetalol HCl (Labetalol) 10 mg Q4H PRN IV SBP > 160 Last administered on 06/18/18 12:26; Admin Dose 10 MG; Start 06/18/18 at 12:30 Acetaminophen (Tylenol Tab) 650 mg Q6H PRN PO MILD PAIN(1-3)OR ELEVATED TEMP Last administered on 06/27/18 03:17; Admin Dose 650 MG; Start 06/19/18 at 17:30 Propranolol HCl (Inderal) 10 mg BID PO Last administered on 06/30/18 08:47; Admin Dose 10 MG; Start 06/22/18 at 09:00 Lorazepam (Ativan) 2 mg Q2H PRN IV FOR SEVERE AGITATION Last administered on 06/29/18 03:32; Admin Dose 2 MG; Start 06/22/18 at 12:00 Morphine Sulfate (morphine) 2 mg Q4H PRN IV SEVERE PAIN LEVEL 7-10 Last administered on 06/30/18 02:55; Admin Dose 2 MG; Start 06/22/18 at 12:00 Rifaximin (Xifaxan) 550 mg BID PO Last administered on 06/30/18 08:47; Admin Dose 550 MG; Start 06/22/18 at 21:00 Lactulose (Enulose) 30 gm BID PO Last administered on 06/30/18at 08:45; Admin Do se 30 GM; Start 06/25/18 at 21:00 Pantoprazole (Protonix Tab) 40 mg BID@,18 PO Last administered on 06/30/18at 05:38; Admin Dose 40 MG; Start 06/26/18 at 18:00 Thiamine HCl (Vitamin B1) 100 mg DAILY PO Last administered on 06/30/18at 08:47; Admin Dose 100 MG; Start 06/30/18 at 09:00 Folic Acid (Folic Acid) 1 mg DAILY PO Last administered on 06/30/18 08:47; Admin Dose 1 MG; Start 06/30/18 at 09:00 ELIDIA REAVES MD Jun 30, 2018 12:52
[2018-06-30 14:00] VITALS: BP 117/57; PULSE 72; RESP 18
--- NOTE | 2018-06-30 17:57 | PN ---
Date/Time of Note Date/Time of Note DATE: 06/30/18 TIME: 17:53 Assessment/Plan VTE Prophylaxis Risk score (from [facility] [place] risk: 1 SCD applied (from [facility] [place]): Yes Pharmacological prophylaxis: NA/contraindicated Pharm contraindication: bleeding Lines/Catheters [facility] Type (from [facility] Peripheral IV Urinary Cath still in place: No Assessment/Plan Hospital Course Assessment: Hematemesis- resolved EGD 06/21/1819 Grade 3/4 esophageal varices, post EVL x3 Small fundal gastric varices Portal gastropathy Otherwise normal EGD ETOH withdrawal Encephalopathy- resolved Elevated LFTs with direct hyperbilirubinemia (2/2 to liver disease)- trending down -MRCP No evidence of biliary duct obstruction Alcoholic liver cirrhosis - DF on admission 22.6 Pancytopenia- likely 2/2 excessive ETOH abuse Elevated lipase -resolved -MRCP- pancreas not well visualized Hepatitis serology is negative Plan: Diet as tolerated (currently 2gm Na soft) Continue current regimen (Xifaxan and lactulose (titrate to 3-4 bms in a 24/hr period) PPI BID/propranolol 10 mg BID- as BP/Hr allows) Repeat EGD/EVL in 3 months Continue OT/PT Result Diagram: 06/30/188 06/30/18 0458 Results 24hrs Laboratory Tests Test 06/30/18 04:58 06/30/18 06:33 White Blood Count 2.7 #L Red Blood Count 4.05 L Hemoglobin 10.3 L Hematocrit 33.2 L Mean Corpuscular Volume 82.0 Mean Corpuscular Hemoglobin 25.4 L Mean Corpuscular Hemoglobin Concent 31.0 L Red Cell Distribution Width 20.2 H Platelet Count 72 #L Mean Platelet Volume Immature Granulocytes % 0.000 L Neutrophils % 42.4 Lymphocytes % 36.8 Monocytes % 16.4 H Eosinophils % 3.3 Basophils % 1.1 Nucleated Red Blood Cells % 0.0 Immature Granulocytes # 0.000 Neutrophils # 1.1 L Lymphocytes # 1.0 Monocytes # 0.4 Eosinophils # 0.1 Basophils # 0.0 Nucleated Red Blood Cells # 0.0 Sodium Level 140 Potassium Level 3.9 Chloride Level 106 Carbon Dioxide Level 27 Anion Gap 7 Blood Urea Nitrogen 10 Creatinine 0.56 L Est Glomerular Filtrat Rate mL/min > 60 Glucose Level 77 Calcium Level 8.6 Total Bilirubin 0.6 Direct Bilirubin 0.00 Indirect Bilirubin 0.6 Aspartate Amino Transf (AST/SGOT) 147 H Alanine Aminotransferase (ALT/SGPT) 114 H Alkaline Phosphatase 259 H Total Protein 6.9 Albumin 3.0 L Globulin 3.90 H Albumin/Globulin Ratio 0.76 Lab Scanned Report BLOOD TRANSFUSION Subjective 24 Hr Interval Summary Free Text/Dictation Course reviewed with nursing staff Patient interviewed and examined All labs, imaging and other results reviewed No over night events Patient doing well, no c/o nausea or vomiting or chest pain Pt states RUQ discomfort has improved. He is tolerating his diet well. Encourage ambulation and deep breathing and abstinence Exam/Review of Systems Exam Vitals Vital Signs Date Temp Pulse Resp B/P (MAP) Pulse Ox O2 O2 Flow FiO2 Time Delivery Rate 06/30/18 98.4 68 17 115/65 97 Room Air 08:22 (82) Intake and Output 06/29/18 06/29/18 06/30/18 1515:00 23:00 07:00 IntakeIntake Total 600 ml 1150 ml 320 ml BalanceBalance 600 ml 1150 ml 320 ml Exam GENERAL: Alert and oriented x3, weakness greatly improved. EARS/NOSE AND THROAT: Ears normal, nose normal NECK: Supple, no masses CHEST: Inspection within normal limits. CARDIOVASCULAR: Heart: Regular rate and rhythm RESPIRATORY: Lungs clear to auscultation GASTROINTESTINAL AND LIVER: Abdomen: Soft, mild RUQ tenderness- improved, no hernias, no masses, no guarding, no rebound tenderness, normoactive bowel sounds. Rectal: Deferred. EXTREMITIES: No cyanosis, clubbing or edema. Results Results 24hrs Laboratory Tests Test 06/30/18 04:58 06/30/18 06:33 White Blood Count 2.7 #L Red Blood Count 4.05 L Hemoglobin 10.3 L Hematocrit 33.2 L Mean Corpuscular Volume 82.0 Mean Corpuscular Hemoglobin 25.4 L Mean Corpuscular Hemoglobin Concent 31.0 L Red Cell Distribution Width 20.2 H Platelet Count 72 #L Mean Platelet Volume Immature Granulocytes % 0.000 L Neutrophils % 42.4 Lymphocytes % 36.8 Monocytes % 16.4 H Eosinophils % 3.3 Basophils % 1.1 Nucleated Red Blood Cells % 0.0 Immature Granulocytes # 0.000 Neutrophils # 1.1 L Lymphocytes # 1.0 Monocytes # 0.4 Eosinophils # 0.1 Basophils # 0.0 Nucleated Red Blood Cells # 0.0 Sodium Level 140 Potassium Level 3.9 Chloride Level 106 Carbon Dioxide Level 27 Anion Gap 7 Blood Urea Nitrogen 10 Creatinine 0.56 L Est Glomerular Filtrat Rate mL/min > 60 Glucose Level 77 Calcium Level 8.6 Total Bilirubin 0.6 Direct Bilirubin 0.00 Indirect Bilirubin 0.6 Aspartate Amino Transf (AST/SGOT) 147 H Alanine Aminotransferase (ALT/SGPT) 114 H Alkaline Phosphatase 259 H Total Protein 6.9 Albumin 3.0 L Globulin 3.90 H Albumin/Globulin Ratio 0.76 Lab Scanned Report BLOOD TRANSFUSION Medications Medication Current Medications IV Flush (NS 3 ml) 3 ml PER PROTOCOL IV ; Start 06/17/18 at 15:30 Lorazepam (Ativan) 2 mg Q10MIN PRN IV seizure; Start 06/17/18 at 15:30 Ondansetron HCl (Zofran Inj) 4 mg Q6H PRN IV NAUSEA AND/OR VOMITING Last administered on 06/21/18 18:52; Admin Dose 4 MG; Start 06/18/18 at 11:00 Labetalol HCl (Labetalol) 10 mg Q4H PRN IV SBP > 160 Last administered on 06/18/18 12:26; Admin Dose 10 MG; Start 06/18/18 at 12:30 Acetaminophen (Tylenol Tab) 650 mg Q6H PRN PO MILD PAIN(1-3)OR ELEVATED TEMP Last administered on 06/27/18 03:17; Admin Dose 650 MG; Start 06/19/18 at 17:30 Propranolol HCl (Inderal) 10 mg BID PO Last administered on 06/30/18 08:47; Admin Dose 10 MG; Start 06/22/18 at 09:00 Lorazepam (Ativan) 2 mg Q2H PRN IV FOR SEVERE AGITATION Last administered on 06/29/18 03:32; Admin Dose 2 MG; Start 06/22/18 at 12:00 Morphine Sulfate (morphine) 2 mg Q4H PRN IV SEVERE PAIN LEVEL 7-10 Last administered on 06/30/18 15:54; Admin Dose 2 MG; Start 06/22/18 at 12:00 Rifaximin (Xifaxan) 550 mg BID PO Last administered on 06/30/18 08:47; Admin Dose 550 MG; Start 06/22/18 at 21:00 Lactulose (Enulose) 30 gm BID PO Last administered on 06/30/18 08:45; Admin Dose 30 GM; Start 06/25/18 at 21:00 Pantoprazole (Protonix Tab) 40 mg BID@06,18 PO Last administered on 06/30/18 05:38; Admin Dose 40 MG; Start 06/26/18 at 18:00 Thiamine HCl (Vitamin B1) 100 mg DAILY PO Last administered on 06/30/18 08:47; Admin Dose 100 MG; Start 06/30/18 at 09:00 Folic Acid (Folic Acid) 1 mg DAILY PO Last administered on 06/30/18 08:47; Admin Dose 1 MG; Start 06/30/18 at 09:00 DAVONTE GILL MD Jun 30, 2018 17:57
[2018-06-30 20:00] VITALS: BP 109/61; PULSE 74; RESP 19
[2018-07-01 02:00] VITALS: BP 114/64; PULSE 60; RESP 19
[2018-07-01] MEDS: morphine 2 MG INJ IV PRN ×2 (05:25→20:41)
[2018-07-01] MEDS: PANTOPRAZOLE (EC) 40 MG TAB PO SCH ×2 (05:26→18:08)
[2018-07-01] MEDS: LACTULOSE 30ML CUP PO SCH ×2 (08:02→20:37)
[2018-07-01] MEDS: THIAMINE 100 MG TAB PO SCH (08:02)
[2018-07-01] MEDS: RIFAXIMIN 550 MG TAB PO SCH ×2 (08:02→20:39)
[2018-07-01] MEDS: FOLIC ACID 1 MG TAB PO SCH (08:02)
[2018-07-01] MEDS: PROPRANOLOL 10 MG TAB PO SCH ×2 (08:27→20:40)
[2018-07-01 08:53] VITALS: BP 122/65; PULSE 74; RESP 18
--- NOTE | 2018-07-01 10:14 | PN ---
Date/Time of Note Date/Time of Note DATE: 07/01/18 TIME: 10:12 Assessment/Plan VTE Prophylaxis Risk score (from Ns)>0 risk: 1 SCD applied (from Ns): Yes Pharmacological prophylaxis: NA/contraindicated Pharm contraindication: bleeding Lines/Catheters IV Catheter Type (from [facility]): Peripheral IV Urinary Cath still in place: No Assessment/Plan Hospital Course Assessment: Hematemesis- resolved EGD 06/21/1819 Grade 3/4 esophageal varices, post EVL x3 Small fundal gastric varices Portal gastropathy Otherwise normal EGD ETOH withdrawal Encephalopathy- resolved Elevated LFTs with direct hyperbilirubinemia (2/2 to liver disease)- trending down -MRCP No evidence of biliary duct obstruction Alcoholic liver cirrhosis - DF on admission 22.6 Pancytopenia- likely 2/2 excessive ETOH abuse Elevated lipase -resolved -MRCP- pancreas not well visualized Hepatitis serology is negative Plan: Diet as tolerated (currently 2gm Na soft) Continue current regimen (Xifaxan and lactulose (titrate to 3-4 bms in a 24/hr period) PPI BID/propranolol 10 mg BID- as BP/Hr allows) Repeat EGD/EVL in 3 months Continue OT/PT Appears safe for outpatient management Result Diagram: 06/30/18 0458 06/30/18 0458 Subjective 24 Hr Interval Summary Free Text/Dictation Course reviewed with nursing staff Patient interviewed and examined All labs, imaging and other results reviewed No over night events Patient doing well, no c/o nausea or vomiting or chest pain Pt states RUQ discomfort has improved. He is tolerating his diet well. Encourage ambulation and deep breathing and abstinence Appears safe for outpatient management from the GI point of view Exam/Review of Systems Exam Vitals Vital Signs Date Temp Pulse Resp B/P (MAP) Pulse Ox O2 O2 Flow FiO2 Time Delivery Rate 07/01/18 97.4 74 18 122/65 97 Room Air 08:53 (84) Intake and Output 06/30/18 06/30/18 07/01/18 1515:00 23:00 07:00 IntakeIntake Total 500 ml 240 ml BalanceBalance 500 ml 240 ml Exam Exam GENERAL: Alert and oriented x3, weakness greatly improved. EARS/NOSE AND THROAT: Ears normal, nose normal NECK: Supple, no masses CHEST: Inspection within normal limits. CARDIOVASCULAR: Heart: Regular rate and rhythm RESPIRATORY: Lungs clear to auscultation GASTROINTESTINAL AND LIVER: Abdomen: Soft, mild RUQ tenderness- improved, no hernias, no masses, no guarding, no rebound tenderness, normoactive bowel sounds. Rectal: Deferred. EXTREMITIES: No cyanosis, clubbing or edema. Medications Medication Current Medications IV Flush (NS 3 ml) 3 ml PER PROTOCOL IV ; Start 06/17/18 at 15:30 Lorazepam (Ativan) 2 mg Q10MIN PRN IV seizure; Start 06/17/18 at 15:30 Ondansetron HCl (Zofran Inj) 4 mg Q6H PRN IV NAUSEA AND/OR VOMITING Last administered on 06/21/18 18:52; Admin Dose 4 MG; Start 06/18/18 at 11:00 Acetaminophen (Tylenol Tab) 650 mg Q6H PRN PO MILD PAIN(1-3)OR ELEVATED TEMP Last administered on 06/27/18 03:17; Admin Dose 650 MG; Start 06/19/18 at 17:30 Propranolol HCl (Inderal) 10 mg BID PO Last administered on 07/01/18 08:27; Admin Dose 10 MG; Start 06/22/18 at 09:00 Lorazepam (Ativan) 2 mg Q2H PRN IV Anxiety Last administered on 06/29/18 03:32; Admin Dose 2 MG; Start 06/22/18 at 12:00 Morphine Sulfate (morphine) 2 mg Q4H PRN IV SEVERE PAIN LEVEL 7-10 Last administered on 07/01/18 05:25; Admin Dose 2 MG; Start 06/22/18 at 12:00 Rifaximin (Xifaxan) 550 mg BID PO Last administered on 07/01/18 08:02; Admin Dose 550 MG; Start 06/22/18 at 21:00 Lactulose (Enulose) 30 gm BID PO Last administered on 07/01/18 08:02; Admin Dose 30 GM; Start 06/25/18 at 21:00 Pantoprazole (Protonix Tab) 40 mg BID@06,18 PO Last administered on 07/01/18 05:26; Admin Dose 40 MG; Start 06/26/18 at 18:00 Thiamine HCl (Vitamin B1) 100 mg DAILY PO Last administered on 07/01/18 08:02; Admin Dose 100 MG; Start 06/30/18 at 09:00 Folic Acid (Folic Acid) 1 mg DAILY PO Last administered on 07/01/18at 08:02; Admin Dose 1 MG; Start 06/30/18 at 09:00 DAVONTE GILL MD Jul 01, 2018 10:14
--- NOTE | 2018-07-01 10:52 | PN ---
Date/Time of Note Date/Time of Note DATE: 07/01/18 TIME: 10:51 Objective Vitals Vital Signs Date Temp Pulse Resp B/P (MAP) Pulse Ox O2 O2 Flow FiO2 Time Delivery Rate 07/01/18 97.4 74 18 122/65 97 Room Air 08:53 (84) Intake and Output 06/30/18 06/30/18 07/01/18 1515:00 23:00 07:00 IntakeIntake Total 500 ml 240 ml BalanceBalance 500 ml 240 ml Results Result Diagram: 06/30/18 0458 06/30/18 0458 Medications Medications Current Medications IV Flush (NS 3 ml) 3 ml PER PROTOCOL IV ; Start 06/17/18 at 15:30 Lorazepam (Ativan) 2 mg Q10MIN PRN IV seizure; Start 06/17/18 at 15:30 Ondansetron HCl (Zofran Inj) 4 mg Q6H PRN IV NAUSEA AND/OR VOMITING Last administered on 06/21/18 18:52; Admin Dose 4 MG; Start 06/18/18 at 11:00 Acetaminophen (Tylenol Tab) 650 mg Q6H PRN PO MILD PAIN(1-3)OR ELEVATED TEMP Last administered on 06/27/18 03:17; Admin Dose 650 MG; Start 06/19/18 at 17:30 Propranolol HCl (Inderal) 10 mg BID PO Last administered on 07/01/18 08:27; Admin Dose 10 MG; Start 06/22/18 at 09:00 Lorazepam (Ativan) 2 mg Q2H PRN IV Anxiety Last administered on 06/29/18 03:32; Admin Dose 2 MG; Start 06/22/18 at 12:00 Morphine Sulfate (morphine) 2 mg Q4H PRN IV SEVERE PAIN LEVEL 7-10 Last administered on 07/01/18 05:25; Admin Dose 2 MG; Start 06/22/18 at 12:00 Rifaximin (Xifaxan) 550 mg BID PO Last administered on 07/01/18 08:02; Admin Dose 550 MG; Start 06/22/18 at 21:00 Lactulose (Enulose) 30 gm BID PO Last administered on 07/01/18 08:02; Admin Dose 30 GM; Start 06/25/18 at 21:00 Pantoprazole (Protonix Tab) 40 mg BID@06,18 PO Last administered on 07/01/18at 05:26; Admin Dose 40 MG; Start 06/26/18 at 18:00 Thiamine HCl (Vitamin B1) 100 mg DAILY PO Last administered on 07/01/18at 08:02; Admin Dose 100 MG; Start 06/30/18 at 09:00 Folic Acid (Folic Acid) 1 mg DAILY PO Last administered on 07/01/18at 08:02; Admin Dose 1 MG; Start 06/30/18 at 09:00 VTE Prophylaxis Risk score (from Ns)>0 risk: 1 SCD applied (from Ns): Yes Lines/Catheters IV Catheter Type: Bishop in Place: No Assessment/Plan Hospital Course Subjective No acute issues Objective Physical exam General: Patient is laying in bed and answers questions appropriately Mentation: Patient is alert and oriented 4, Head: Normocephalic atraumatic Eyes: EOMI, pupils reactive to light Neck: Supple, nontender, midline Respiratory: Clear to auscultation bilaterally Cardiovascular: regular rate, no obvious murmurs Gastrointestinal: non-tender to palpation, bowel sounds heard. Neurological: Moves all extremities spontaneously Skin: No new skin lesions Assessment/Plan 1. Acute toxic encephalopathy-resolved - most likely secondary to alcohol withdrawal - no need for restraints at this time 2. Acute alcohol intoxication and withdrawal -Resolving, Ativan as needed 3. Pancytopenia- stable - Baseline in setting of liver cirrhosis - seen by hematology last year and appears that patient has chronic thrombocytopenia with drop in platelets after every alcohol binge where he gets admitted. - no active bleeding 4. Chronic debility and lower extremity weakness - Chronic, likely at baseline, patient not able to ambulate when attempted to be discharged by ED physician, this is baseline for patient - PT/OT ordered 5. Alcohol abuse - monitor for DTs - Ativan PRN on board 6. Acute GI bleed- resolved - GI on board and appreciate consultation. EGD showed varices requiring banding 7. Alcoholic liver cirrhosis with h/o grade 3 or 4 esophageal varices - Patient does not appear to be on any medication prior to admission as he is homeless and noncompliant - propranolol on board - PPI bid 8. Acute pancreatitis- resolved - advancing diet as tolerated 9. Disposition -Barrier to discharge as patient being homeless and only being able to ambulate 2 feet with physical therapy, unsafe discharge at this time. [facility] SHAYNA,AMANDA Jul 01, 2018 10:52
[2018-07-01 14:00] VITALS: BP 98/58; PULSE 78; RESP 16
[2018-07-01 20:00] VITALS: BP 111/64; PULSE 69; RESP 19
[2018-07-02 02:00] VITALS: BP 119/59; PULSE 72; RESP 18
[2018-07-02] MEDS: PANTOPRAZOLE (EC) 40 MG TAB PO SCH ×2 (05:09→17:10)
[2018-07-02] MEDS: ACETAMINOPHEN 325 MG TAB PO PRN (05:12)
[2018-07-02 08:38] VITALS: BP 109/54; PULSE 59; RESP 17
[2018-07-02] MEDS: THIAMINE 100 MG TAB PO SCH (09:00)
[2018-07-02] MEDS: LACTULOSE 30ML CUP PO SCH ×2 (09:22→21:45)
[2018-07-02] MEDS: FOLIC ACID 1 MG TAB PO SCH (09:23)
[2018-07-02] MEDS: PROPRANOLOL 10 MG TAB PO SCH ×2 (09:23→21:46)
[2018-07-02] MEDS: RIFAXIMIN 550 MG TAB PO SCH ×2 (09:23→21:45)
--- NOTE | 2018-07-02 12:20 | PN ---
Date/Time of Note Date/Time of Note DATE: 07/02/18 TIME: 12:17 Assessment/Plan VTE Prophylaxis Risk score (from Ns)>0 risk: 1 SCD applied (from Ns): Yes Pharmacological prophylaxis: NA/contraindicated Pharm contraindication: bleeding Lines/Catheters IV Catheter Type (from [facility]): Peripheral IV Urinary Cath still in place: No Assessment/Plan Hospital Course Assessment: Hematemesis- resolved EGD 06/21/1819 Grade 3/4 esophageal varices, post EVL x3 Small fundal gastric varices Portal gastropathy Otherwise normal EGD ETOH withdrawal Encephalopathy- resolved Elevated LFTs with direct hyperbilirubinemia (2/2 to liver disease)- trending down -MRCP No evidence of biliary duct obstruction Alcoholic liver cirrhosis - DF on admission 22.6 Pancytopenia- likely 2/2 excessive ETOH abuse Elevated lipase -resolved -MRCP- pancreas not well visualized Hepatitis serology is negative Plan: Diet as tolerated (currently 2gm Na soft) Continue current regimen (Xifaxan and lactulose (titrate to 3-4 bms in a 24/hr period) PPI BID/propranolol 10 mg BID- as BP/Hr allows) Repeat EGD/EVL in 3 months Continue OT/PT Appears safe for outpatient management Result Diagram: 07/02/189 07/02/18 0439 Results 24hrs Laboratory Tests Test 07/02/18 04:39 White Blood Count 3.1 L Red Blood Count 4.40 L Hemoglobin 11.1 L Hematocrit 35.6 L Mean Corpuscular Volume 80.9 L Mean Corpuscular Hemoglobin 25.2 L Mean Corpuscular Hemoglobin Concent 31.2 L Red Cell Distribution Width 19.9 H Platelet Count 97 #L Mean Platelet Volume Immature Granulocytes % 0.000 L Neutrophils % 47.7 Lymphocytes % 32.7 Monocytes % 15.1 H Eosinophils % 3.5 Basophils % 1.0 Nucleated Red Blood Cells % 0.0 Immature Granulocytes # 0.000 Neutrophils # 1.5 L Lymphocytes # 1.0 Monocytes # 0.5 Eosinophils # 0.1 Basophils # 0.0 Nucleated Red Blood Cells # 0.0 Sodium Level 139 Potassium Level 4.1 Chloride Level 107 Carbon Dioxide Level 25 Anion Gap 7 Blood Urea Nitrogen 11 Creatinine 0.52 L Est Glomerular Filtrat Rate mL/min > 60 Glucose Level 84 Calcium Level 8.8 Magnesium Level 1.8 Total Bilirubin 1.0 Direct Bilirubin 0.00 Indirect Bilirubin 1.0 Aspartate Amino Transf (AST/SGOT) 188 H Alanine Aminotransferase (ALT/SGPT) 185 H Alkaline Phosphatase 207 H Total Protein 7.5 Albumin 3.4 Globulin 4.10 H Albumin/Globulin Ratio 0.82 Subjective 24 Hr Interval Summary Free Text/Dictation Course reviewed with nursing staff Patient interviewed and examined All labs, imaging and other results reviewed No over night events Patient doing well, no c/o nausea or vomiting or chest pain Pt complains of headache and diffuse pain He is tolerating his diet well. Encourage ambulation and deep breathing and abstinence Appears safe for outpatient management from the GI point of view Exam/Review of Systems Exam Vitals Vital Signs Date Temp Pulse Resp B/P (MAP) Pulse Ox O2 O2 Flow FiO2 Time Delivery Rate 07/02/18 98.0 59 17 109/54 98 Room Air 08:38 (72) Intake and Output 07/01/18 07/01/18 07/02/18 1515:00 23:00 07:00 IntakeIntake Total 860 ml 420 ml 480 ml OutputOutput Total 2 ml BalanceBalance 860 ml 418 ml 480 ml Exam GENERAL: Alert and oriented x3, weakness greatly improved. EARS/NOSE AND THROAT: Ears normal, nose normal NECK: Supple, no masses CHEST: Inspection within normal limits. CARDIOVASCULAR: Heart: Regular rate and rhythm RESPIRATORY: Lungs clear to auscultation GASTROINTESTINAL AND LIVER: Abdomen: Soft, mild diffuse tenderness- improved, no hernias, no masses, no guarding, no rebound tenderness, normoactive bowel sounds. Rectal: Deferred. EXTREMITIES: No cyanosis, clubbing or edema. Results Results 24hrs Laboratory Tests Test 07/02/18 04:39 White Blood Count 3.1 L Red Blood Count 4.40 L Hemoglobin 11.1 L Hematocrit 35.6 L Mean Corpuscular Volume 80.9 L Mean Corpuscular Hemoglobin 25.2 L Mean Corpuscular Hemoglobin Concent 31.2 L Red Cell Distribution Width 19.9 H Platelet Count 97 #L Mean Platelet Volume Immature Granulocytes % 0.000 L Neutrophils % 47.7 Lymphocytes % 32.7 Monocytes % 15.1 H Eosinophils % 3.5 Basophils % 1.0 Nucleated Red Blood Cells % 0.0 Immature Granulocytes # 0.000 Neutrophils # 1.5 L Lymphocytes # 1.0 Monocytes # 0.5 Eosinophils # 0.1 Basophils # 0.0 Nucleated Red Blood Cells # 0.0 Sodium Level 139 Potassium Level 4.1 Chloride Level 107 Carbon Dioxide Level 25 Anion Gap 7 Blood Urea Nitrogen 11 Creatinine 0.52 L Est Glomerular Filtrat Rate mL/min > 60 Glucose Level 84 Calcium Level 8.8 Magnesium Level 1.8 Total Bilirubin 1.0 Direct Bilirubin 0.00 Indirect Bilirubin 1.0 Aspartate Amino Transf (AST/SGOT) 188 H Alanine Aminotransferase (ALT/SGPT) 185 H Alkaline Phosphatase 207 H Total Protein 7.5 Albumin 3.4 Globulin 4.10 H Albumin/Globulin Ratio 0.82 Medications Medication Current Medications IV Flush (NS 3 ml) 3 ml PER PROTOCOL IV ; Start 06/17/18 at 15:30 Lorazepam (Ativan) 2 mg Q10MIN PRN IV seizure; Start 06/17/18 at 15:30 Ondansetron HCl (Zofran Inj) 4 mg Q6H PRN IV NAUSEA AND/OR VOMITING Last administered on 06/21/18 18:52; Admin Dose 4 MG; Start 06/18/18 at 11:00 Acetaminophen (Tylenol Tab) 650 mg Q6H PRN PO MILD PAIN(1-3)OR ELEVATED TEMP Last administered on 07/02/18 05:12; Admin Dose 650 MG; Start 06/19/18 at 17:30 Propranolol HCl (Inderal) 10 mg BID PO Last administered on 07/02/18 09:23; Admin Dose 10 MG; Start 06/22/18 at 09:00 Lorazepam (Ativan) 2 mg Q2H PRN IV Anxiety Last administered on 06/29/18 03:32; Admin Dose 2 MG; Start 06/22/18 at 12:00 Morphine Sulfate (morphine) 2 mg Q4H PRN IV SEVERE PAIN LEVEL 7-10 Last administered on 07/01/18 20:41; Admin Dose 2 MG; Start 06/22/18 at 12:00 Rifaximin (Xifaxan) 550 mg BID PO Last administered on 07/02/18 09:23; Admin Dose 550 MG; Start 06/22/18 at 21:00 Lactulose (Enulose) 30 gm BID PO Last administered on 07/02/18 09:22; Admin Dose 30 GM; Start 06/25/18 at 21:00 Pantoprazole (Protonix Tab) 40 mg BID@06,18 PO Last administered on 07/02/18at 05:09; Admin Dose 40 MG; Start 06/26/18 at 18:00 Thiamine HCl (Vitamin B1) 100 mg DAILY PO Last administered on 07/01/18at 08:02; Admin Dose 100 MG; Start 06/30/18 at 09:00 Folic Acid (Folic Acid) 1 mg DAILY PO Last administered on 07/02/18at 09:23; Admin Dose 1 MG; Start 06/30/18 at 09:00 DAVONTE GILL MD Jul 02, 2018 12:20
--- NOTE | 2018-07-02 12:58 | PN ---
Date/Time of Note Date/Time of Note DATE: 07/02/18 TIME: 12:58 Objective Vitals Vital Signs Date Temp Pulse Resp B/P (MAP) Pulse Ox O2 O2 Flow FiO2 Time Delivery Rate 07/02/18 98.0 59 17 109/54 98 Room Air 08:38 (72) Intake and Output 07/01/18 07/01/18 07/02/18 1515:00 23:00 07:00 IntakeIntake Total 860 ml 420 ml 480 ml OutputOutput Total 2 ml BalanceBalance 860 ml 418 ml 480 ml Results Result Diagram: 07/02/18 0439 07/02/18 0439 Medications Medications Current Medications IV Flush (NS 3 ml) 3 ml PER PROTOCOL IV ; Start 06/17/18 at 15:30 Lorazepam (Ativan) 2 mg Q10MIN PRN IV seizure; Start 06/17/18 at 15:30 Ondansetron HCl (Zofran Inj) 4 mg Q6H PRN IV NAUSEA AND/OR VOMITING Last administered on 06/21/18 18:52; Admin Dose 4 MG; Start 06/18/18 at 11:00 Acetaminophen (Tylenol Tab) 650 mg Q6H PRN PO MILD PAIN(1-3)OR ELEVATED TEMP Last administered on 07/02/18 05:12; Admin Dose 650 MG; Start 06/19/18 at 17:30 Propranolol HCl (Inderal) 10 mg BID PO Last administered on 07/02/18 09:23; Admin Dose 10 MG; Start 06/22/18 at 09:00 Lorazepam (Ativan) 2 mg Q2H PRN IV Anxiety Last administered on 06/29/18 03:32; Admin Dose 2 MG; Start 06/22/18 at 12:00 Morphine Sulfate (morphine) 2 mg Q4H PRN IV SEVERE PAIN LEVEL 7-10 Last administered on 07/01/18 20:41; Admin Dose 2 MG; Start 06/22/18 at 12:00 Rifaximin (Xifaxan) 550 mg BID PO Last administered on 07/02/18 09:23; Admin Dose 550 MG; Start 06/22/18 at 21:00 Lactulose (Enulose) 30 gm BID PO Last administered on 07/02/18 09:22; Admin Dose 30 GM; Start 06/25/18 at 21:00 Pantoprazole (Protonix Tab) 40 mg BID@06,18 PO Last administered on 07/02/18at 05:09; Admin Dose 40 MG; Start 06/26/18 at 18:00 Thiamine HCl (Vitamin B1) 100 mg DAILY PO Last administered on 07/01/18at 08:02; Admin Dose 100 MG; Start 06/30/18 at 09:00 Folic Acid (Folic Acid) 1 mg DAILY PO Last administered on 07/02/18at 09:23; Admin Dose 1 MG; Start 06/30/18 at 09:00 VTE Prophylaxis Risk score (from Ns)>0 risk: 1 [place] [facility] [place]/Catheters IV Catheter Type: Bishop in Place: No Assessment/Plan Hospital Course Subjective No acute issues Objective Physical exam General: Patient is laying in bed and answers questions appropriately Mentation: Patient is alert and oriented 4, Head: Normocephalic atraumatic Eyes: EOMI, pupils reactive to light Neck: Supple, nontender, midline Respiratory: Clear to auscultation bilaterally Cardiovascular: regular rate, no obvious murmurs Gastrointestinal: non-tender to palpation, bowel sounds heard. Neurological: Moves all extremities spontaneously Skin: No new skin lesions Assessment/Plan 1. Acute toxic encephalopathy-resolved - most likely secondary to alcohol withdrawal - no need for restraints at this time 2. Acute alcohol intoxication and withdrawal -Resolving, Ativan as needed 3. Pancytopenia- stable - Baseline in setting of liver cirrhosis - seen by hematology last year and appears that patient has chronic thrombocytopenia with drop in platelets after every alcohol binge where he gets admitted. - no active bleeding 4. Chronic debility and lower extremity weakness - Chronic, likely at baseline, patient not able to ambulate when attempted to be discharged by ED physician, this is baseline for patient - PT/OT ordered 5. Alcohol abuse - monitor for DTs - Ativan PRN on board 6. Acute GI bleed- resolved - GI on board and appreciate consultation. EGD showed varices requiring banding 7. Alcoholic liver cirrhosis with h/o grade 3 or 4 esophageal varices - Patient does not appear to be on any medication prior to admission as he is homeless and noncompliant - propranolol on board - PPI bid 8. Acute pancreatitis- resolved - advancing diet as tolerated 9. Disposition -Barrier to discharge as patient being homeless and only being able to ambulate very limited with physical therapy, unsafe discharge at this time. shelter facility placement pending FARHAN CORRAL Jul 02, 2018 12:58
[2018-07-02 15:26] VITALS: BP 109/60; PULSE 71; RESP 17
[2018-07-02] MEDS: morphine 2 MG INJ IV PRN ×2 (17:14→21:48)
[2018-07-02 20:00] VITALS: BP 108/56; PULSE 71; RESP 19
[2018-07-03 02:00] VITALS: BP 119/67; PULSE 64; RESP 18
[2018-07-03] MEDS: PANTOPRAZOLE (EC) 40 MG TAB PO SCH ×2 (05:48→18:46)
[2018-07-03] MEDS: morphine 2 MG INJ IV PRN ×3 (05:51→20:52)
[2018-07-03 08:20] VITALS: BP 105/54; PULSE 64; RESP 18
[2018-07-03] MEDS: LACTULOSE 30ML CUP PO SCH ×2 (08:56→21:00)
[2018-07-03] MEDS: FOLIC ACID 1 MG TAB PO SCH (08:56)
[2018-07-03] MEDS: THIAMINE 100 MG TAB PO SCH (08:56)
[2018-07-03] MEDS: PROPRANOLOL 10 MG TAB PO SCH ×2 (08:56→20:59)
[2018-07-03] MEDS: RIFAXIMIN 550 MG TAB PO SCH ×2 (08:56→20:53)
--- NOTE | 2018-07-03 09:47 | PN ---
Date/Time of Note Date/Time of Note DATE: 07/03/18 TIME: 09:47 Assessment/Plan VTE Prophylaxis Risk score (from Ns)>0 risk: 1 SCD applied (from Ns): Yes Pharmacological prophylaxis: NA/contraindicated Pharm contraindication: liver dx, thrombocytopenia Lines/Catheters IV Catheter Type (from [facility]): Saline Lock Urinary Cath still in place: No Assessment/Plan Assessment/Plan 1. Acute toxic encephalopathy-resolved - most likely secondary to alcohol withdrawal 2. Acute alcohol intoxication and withdrawal - resolved - completed Librium taper 3. Pancytopenia- improving - Baseline in setting of liver cirrhosis - seen by hematology last year and appears that patient has chronic thrombocytopenia with drop in platelets after every alcohol binge where he gets admitted. - no active bleeding 4. Chronic debility and lower extremity weakness - Chronic, likely at baseline, patient not able to ambulate when attempted to be discharged by ED physician, this is baseline for patient - PT/OT ordered 5. Alcohol abuse - cessation discussed 6. Acute GI bleed- resolved - GI on board and appreciate consultation. EGD showed varices requiring banding 7. Alcoholic liver cirrhosis with h/o grade 3 or 4 esophageal varices - Patient does not appear to be on any medication prior to admission as he is homeless and noncompliant - propranolol on board - PPI bid 8. Acute pancreatitis- resolved 9. Disposition - Pending SNF placement Result Diagram: 07/02/18 0439 07/02/18 0439 Subjective 24 Hr Interval Summary Free Text/Dictation Patient continues to complain of diffuse body aches. Discussed need to wean off Morphine to PO pain control. Denies any other acute issues. Exam/Review of Systems Exam Vitals Vital Signs Date Temp Pulse Resp B/P (MAP) Pulse Ox O2 O2 Flow FiO2 Time Delivery Rate 07/03/18 98.0 64 18 105/54 95 Room Air 08:20 (71) Intake and Output 07/02/18 07/02/18 07/03/18 1515:00 23:00 07:00 IntakeIntake Total 240 ml 400 ml 1400 ml BalanceBalance 240 ml 400 ml 1400 ml Exam General: Patient is laying in bed and answers questions appropriately Eyes: EOMI, pupils reactive to light Neck: Supple, nontender, midline Respiratory: Clear to auscultation bilaterally. no wheezing Cardiovascular: regular rate and rhythm, no obvious murmurs Gastrointestinal: soft, non-tender to palpation, bowel sounds heard. Neurological: Moves all extremities spontaneously Skin: No new skin lesions Medications Medication Current Medications IV Flush (NS 3 ml) 3 ml PER PROTOCOL IV ; Start 06/17/18 at 15:30 Lorazepam (Ativan) 2 mg Q10MIN PRN IV seizure; Start 06/17/18 at 15:30 Ondansetron HCl (Zofran Inj) 4 mg Q6H PRN IV NAUSEA AND/OR VOMITING Last administered on 06/21/18 18:52; Admin Dose 4 MG; Start 06/18/18 at 11:00 Acetaminophen (Tylenol Tab) 650 mg Q6H PRN PO MILD PAIN(1-3)OR ELEVATED TEMP Last administered on 07/02/18 05:12; Admin Dose 650 MG; Start 06/19/18 at 17:30 Propranolol HCl (Inderal) 10 mg BID PO Last administered on 07/03/18 08:56; Admin Dose 10 MG; Start 06/22/18 at 09:00 Lorazepam (Ativan) 2 mg Q2H PRN IV Anxiety Last administered on 06/29/18 03:32; Admin Dose 2 MG; Start 06/22/18 at 12:00 Morphine Sulfate (morphine) 2 mg Q4H PRN IV SEVERE PAIN LEVEL 7-10 Last administered on 07/03/18 05:51; Admin Dose 2 MG; Start 06/22/18 at 12:00 Rifaximin (Xifaxan) 550 mg BID PO Last administered on 07/03/18 08:56; Admin Dose 550 MG; Start 06/22/18 at 21:00 Lactulose (Enulose) 30 gm BID PO Last administered on 07/03/18 08:56; Admin Dose 30 GM; Start 06/25/18 at 21:00 Pantoprazole (Protonix Tab) 40 mg BID@18 PO Last administered on 07/03/18 05:48; Admin Dose 40 MG; Start 06/26/18 at 18:00 Thiamine HCl (Vitamin B1) 100 mg DAILY PO Last administered on 07/03/18 08:56; Admin Dose 100 MG; Start 06/30/18 at 09:00 Folic Acid (Folic Acid) 1 mg DAILY PO Last administered on 07/03/18 08:56; Admin Dose 1 MG; Start 06/30/18 at 09:00 LAVERN [place] MD Jul 03, 2018 09:47
[2018-07-03 15:36] VITALS: BP 116/64; PULSE 76; RESP 17
[2018-07-03 20:00] VITALS: BP 106/56; PULSE 56; RESP 18
[2018-07-04 02:00] VITALS: BP 105/60; PULSE 66; RESP 18
[2018-07-04] MEDS: morphine 2 MG INJ IV PRN ×3 (02:39→11:22)
[2018-07-04] MEDS: PANTOPRAZOLE (EC) 40 MG TAB PO SCH ×2 (06:17→18:29)
[2018-07-04 08:28] VITALS: BP 121/69; PULSE 64; RESP 16
--- NOTE | 2018-07-04 09:15 | PN ---
Date/Time of Note Date/Time of Note DATE: 07/04/18 TIME: 09:15 Assessment/Plan VTE Prophylaxis Risk score (from Ns)>0 risk: 1 SCD applied (from Ns): Yes Pharmacological prophylaxis: NA/contraindicated Pharm contraindication: thrombocytopenia Lines/Catheters IV Catheter Type (from Nrs): Saline Lock Urinary Cath still in place: No Assessment/Plan Assessment/Plan 1. Acute toxic encephalopathy-resolved - most likely secondary to alcohol withdrawal 2. Acute alcohol intoxication and withdrawal - resolved - completed Librium taper 3. Pancytopenia- improving - Baseline in setting of liver cirrhosis - seen by hematology last year and appears that patient has chronic thrombocytopenia with drop in platelets after every alcohol binge where he gets admitted. - no active bleeding 4. Chronic debility and lower extremity weakness - Chronic, likely at baseline, patient not able to ambulate when attempted to be discharged by ED physician, this is baseline for patient - PT/OT ordered 5. Alcohol abuse - cessation discussed 6. Acute GI bleed- resolved - GI on board and appreciate consultation. EGD showed varices requiring banding 7. Alcoholic liver cirrhosis with h/o grade 3 or 4 esophageal varices - Patient does not appear to be on any medication prior to admission as he is homeless and noncompliant - propranolol on board - PPI bid 8. Acute pancreatitis- resolved 9. Generalized pain - transitioning to PO pain control 10. Disposition - Discussed with patient transitioning to PO pain control in order to d/c home Result Diagram: 07/04/18 0517 07/04/18 0517 Results 24hrs Laboratory Tests Test 07/04/18 05:17 White Blood Count 3.3 L Red Blood Count 4.46 L Hemoglobin 11.3 L Hematocrit 36.8 L Mean Corpuscular Volume 82.5 Mean Corpuscular Hemoglobin 25.3 L Mean Corpuscular Hemoglobin Concent 30.7 L Red Cell Distribution Width 19.9 H Platelet Count 101 L Mean Platelet Volume 12.0 #H Immature Granulocytes % 0.000 L Neutrophils % 46.6 Lymphocytes % 31.4 Monocytes % 16.8 H Eosinophils % 4.0 Basophils % 1.2 Nucleated Red Blood Cells % 0.0 Immature Granulocytes # 0.000 Neutrophils # 1.5 L Lymphocytes # 1.0 Monocytes # 0.6 Eosinophils # 0.1 Basophils # 0.0 Nucleated Red Blood Cells # 0.0 Sodium Level 142 Potassium Level 4.1 Chloride Level 103 Carbon Dioxide Level 27 Anion Gap 12 Blood Urea Nitrogen 11 Creatinine 0.65 Est Glomerular Filtrat Rate mL/min > 60 Glucose Level 89 Calcium Level 8.8 Magnesium Level 1.8 Total Bilirubin 0.7 Direct Bilirubin 0.00 Indirect Bilirubin 0.7 Aspartate Amino Transf (AST/SGOT) 169 H Alanine Aminotransferase (ALT/SGPT) 170 H Alkaline Phosphatase 209 H Total Protein 8.0 Albumin 3.6 Globulin 4.40 H Albumin/Globulin Ratio 0.81 Subjective 24 Hr Interval Summary Free Text/Dictation Patient continues to complain of diffuse pain and states only relived by Morphine. Discussed need to transition to PO pain control prior to d/c home Exam/Review of Systems Exam Vitals Vital Signs Date Temp Pulse Resp B/P (MAP) Pulse Ox O2 O2 Flow FiO2 Time Delivery Rate 07/04/18 98.3 64 16 121/69 98 08:28 (86) 07/03/18 Room Air 15:36 Intake and Output 07/03/18 07/03/18 07/04/18 1515:00 23:00 07:00 IntakeIntake Total 1060 ml 500 ml BalanceBalance 1060 ml 500 ml Exam General: Patient is laying in bed and answers questions appropriately Neck: Supple, nontender, midline Respiratory: Clear to auscultation bilaterally. no wheezing Cardiovascular: regular rate and rhythm, no obvious murmurs Gastrointestinal: soft, non-tender to palpation, bowel sounds heard. Neurological: Moves all extremities spontaneously Skin: No new skin lesions Results Results 24hrs Laboratory Tests Test 07/04/18 05:17 White Blood Count 3.3 L Red Blood Count 4.46 L Hemoglobin 11.3 L Hematocrit 36.8 L Mean Corpuscular Volume 82.5 Mean Corpuscular Hemoglobin 25.3 L Mean Corpuscular Hemoglobin Concent 30.7 L Red Cell Distribution Width 19.9 H Platelet Count 101 L Mean Platelet Volume 12.0 #H Immature Granulocytes % 0.000 L Neutrophils % 46.6 Lymphocytes % 31.4 Monocytes % 16.8 H Eosinophils % 4.0 Basophils % 1.2 Nucleated Red Blood Cells % 0.0 Immature Granulocytes # 0.000 Neutrophils # 1.5 L Lymphocytes # 1.0 Monocytes # 0.6 Eosinophils # 0.1 Basophils # 0.0 Nucleated Red Blood Cells # 0.0 Sodium Level 142 Potassium Level 4.1 Chloride Level 103 Carbon Dioxide Level 27 Anion Gap 12 Blood Urea Nitrogen 11 Creatinine 0.65 Est Glomerular Filtrat Rate mL/min > 60 Glucose Level 89 Calcium Level 8.8 Magnesium Level 1.8 Total Bilirubin 0.7 Direct Bilirubin 0.00 Indirect Bilirubin 0.7 Aspartate Amino Transf (AST/SGOT) 169 H Alanine Aminotransferase (ALT/SGPT) 170 H Alkaline Phosphatase 209 H Total Protein 8.0 Albumin 3.6 Globulin 4.40 H Albumin/Globulin Ratio 0.81 Medications Medication Current Medications IV Flush (NS 3 ml) 3 ml PER PROTOCOL IV ; Start 06/17/18 at 15:30 Lorazepam (Ativan) 2 mg Q10MIN PRN IV seizure; Start 06/17/18 at 15:30 Ondansetron HCl (Zofran Inj) 4 mg Q6H PRN IV NAUSEA AND/OR VOMITING Last administered on 06/21/18 18:52; Admin Dose 4 MG; Start 06/18/18 at 11:00 Acetaminophen (Tylenol Tab) 650 mg Q6H PRN PO MILD PAIN(1-3)OR ELEVATED TEMP Last administered on 07/02/18 05:12; Admin Dose 650 MG; Start 06/19/18 at 17:30 Propranolol HCl (Inderal) 10 mg BID PO Last administered on 07/03/18 20:59; Admin Dose 10 MG; Start 06/22/18 at 09:00 Lorazepam (Ativan) 2 mg Q2H PRN IV Anxiety Last administered on 06/29/18 03:32; Admin Dose 2 MG; Start 06/22/18 at 12:00 Morphine Sulfate (morphine) 2 mg Q4H PRN IV SEVERE PAIN LEVEL 7-10 Last administered on 07/04/18 06:41; Admin Dose 2 MG; Start 06/22/18 at 12:00 Rifaximin (Xifaxan) 550 mg BID PO Last administered on 07/03/18 20:53; Admin Dose 550 MG; Start 06/22/18 at 21:00 Lactulose (Enulose) 30 gm BID PO Last administered on 07/03/18 21:00; Admin Dose 30 GM; Start 06/25/18 at 21:00 Pantoprazole (Protonix Tab) 40 mg BID@ PO Last administered on 07/04/18 06:17; Admin Dose 40 MG; Start 06/26/18 at 18:00 Thiamine HCl (Vitamin B1) 100 mg DAILY PO Last administered on 07/03/18at 08:56; Admin Dose 100 MG; Start 06/30/18 at 09:00 Folic Acid (Folic Acid) 1 mg DAILY PO Last administered on 07/03/18at 08:56; Admin Dose 1 MG; Start 06/30/18 at 09:00 Acetaminophen/ Hydrocodone Bitart ([place] (5/325)) 1 tab Q6H PRN PO MODERATE PAIN LEVEL 4-6; Start 07/03/18 at 11:00 LAVERN NJ MD Jul 04, 2018 09:15
[2018-07-04] MEDS: LACTULOSE 30ML CUP PO SCH ×2 (09:31→21:11)
[2018-07-04] MEDS: FOLIC ACID 1 MG TAB PO SCH (09:31)
[2018-07-04] MEDS: RIFAXIMIN 550 MG TAB PO SCH ×2 (09:32→21:11)
[2018-07-04] MEDS: THIAMINE 100 MG TAB PO SCH (09:32)
[2018-07-04] MEDS: PROPRANOLOL 10 MG TAB PO SCH ×2 (09:32→21:11)
[2018-07-04] MEDS ORDERED: traMADol 50 MG TAB PO PRN (11:00)
[2018-07-04 14:30] VITALS: BP 119/69; PULSE 73; RESP 16
--- NOTE | 2018-07-04 15:24 | PN ---
Date/Time of Note Date/Time of Note DATE: 07/04/18 TIME: 15:19 Assessment/Plan VTE Prophylaxis Risk score (from Ns)>0 risk: 1 SCD applied (from Ns): Yes Pharmacological prophylaxis: other (scds) Lines/Catheters IV [facility] Saline Lock Urinary Cath still in place: No Assessment/Plan Hospital Course Hematemesis- resolved EGD 06/21/1819 Grade 3/4 esophageal varices, post EVL x3 Small fundal gastric varices Portal gastropathy Otherwise normal EGD ETOH withdrawal Encephalopathy- resolved Elevated LFTs with direct hyperbilirubinemia (2/2 to liver disease)- trending down -MRCP No evidence of biliary duct obstruction Alcoholic liver cirrhosis - DF on admission 22.6 Pancytopenia- likely 2/2 excessive ETOH abuse Elevated lipase -resolved -MRCP- pancreas not well visualized Hepatitis serology is negative Plan: Diet as tolerated (currently 2gm Na soft) Continue current regimen (Xifaxan and lactulose (titrate to 3-4 bms in a 24/hr period) PPI BID/propranolol 10 mg BID- as BP/Hr allows) Repeat EGD/EVL in 3 months Continue OT/PT Appears safe for outpatient management Patient seen in collaboration with Dr. Murphy/Bernardo Subjective: Course reviewed with nursing staff Patient interviewed and examined All labs, imaging and other results reviewed No over night events Patient doing well, no c/o nausea or vomiting or chest pain HGB stable, no overt signs of GI bleed. PHYSICAL EXAMINATION: GENERAL: Alert and oriented x3, weakness greatly improved. EARS/NOSE AND THROAT: Ears normal, nose normal NECK: Supple, no masses CHEST: Inspection within normal limits. CARDIOVASCULAR: Heart: Regular rate and rhythm RESPIRATORY: Lungs clear to auscultation GASTROINTESTINAL AND LIVER: Abdomen: Soft, mild RUQ tenderness- improved, no hernias, no masses, no guarding, no rebound tenderness, normoactive bowel sounds. Rectal: Deferred. EXTREMITIES: No cyanosis, clubbing or edema. Result Diagram: 07/04/18 0517 07/04/18 0517 Results 24hrs Laboratory Tests Test 07/04/18 05:17 White Blood Count 3.3 L Red Blood Count 4.46 L Hemoglobin 11.3 L Hematocrit 36.8 L Mean Corpuscular Volume 82.5 Mean Corpuscular Hemoglobin 25.3 L Mean Corpuscular Hemoglobin Concent 30.7 L Red Cell Distribution Width 19.9 H Platelet Count 101 L Mean Platelet Volume 12.0 #H Immature Granulocytes % 0.000 L Neutrophils % 46.6 Lymphocytes % 31.4 Monocytes % 16.8 H Eosinophils % 4.0 Basophils % 1.2 Nucleated Red Blood Cells % 0.0 Immature Granulocytes # 0.000 Neutrophils # 1.5 L Lymphocytes # 1.0 Monocytes # 0.6 Eosinophils # 0.1 Basophils # 0.0 Nucleated Red Blood Cells # 0.0 Sodium Level 142 Potassium Level 4.1 Chloride Level 103 Carbon Dioxide Level 27 Anion Gap 12 Blood Urea Nitrogen 11 Creatinine 0.65 Est Glomerular Filtrat Rate mL/min > 60 Glucose Level 89 Calcium Level 8.8 Magnesium Level 1.8 Total Bilirubin 0.7 Direct Bilirubin 0.00 Indirect Bilirubin 0.7 Aspartate Amino Transf (AST/SGOT) 169 H Alanine Aminotransferase (ALT/SGPT) 170 H Alkaline Phosphatase 209 H Total Protein 8.0 Albumin 3.6 Globulin 4.40 H Albumin/Globulin Ratio 0.81 Exam/Review of Systems Exam Vitals Vital Signs Date Temp Pulse Resp B/P (MAP) Pulse Ox O2 O2 Flow FiO2 Time Delivery Rate 07/04/18 98.1 73 16 119/69 99 14:30 (86) 07/03/18 Room Air 15:36 Intake and Output 07/03/18 07/03/18 07/04/18 1515:00 23:00 07:00 IntakeIntake Total 1060 ml 500 ml BalanceBalance 1060 ml 500 ml Results Results 24hrs Laboratory Tests Test 07/04/18 05:17 White Blood Count 3.3 L Red Blood Count 4.46 L Hemoglobin 11.3 L Hematocrit 36.8 L Mean Corpuscular Volume 82.5 Mean Corpuscular Hemoglobin 25.3 L Mean Corpuscular Hemoglobin Concent 30.7 L Red Cell Distribution Width 19.9 H Platelet Count 101 L Mean Platelet Volume 12.0 #H Immature Granulocytes % 0.000 L Neutrophils % 46.6 Lymphocytes % 31.4 Monocytes % 16.8 H Eosinophils % 4.0 Basophils % 1.2 Nucleated Red Blood Cells % 0.0 Immature Granulocytes # 0.000 Neutrophils # 1.5 L Lymphocytes # 1.0 Monocytes # 0.6 Eosinophils # 0.1 Basophils # 0.0 Nucleated Red Blood Cells # 0.0 Sodium Level 142 Potassium Level 4.1 Chloride Level 103 Carbon Dioxide Level 27 Anion Gap 12 Blood Urea Nitrogen 11 Creatinine 0.65 Est Glomerular Filtrat Rate mL/min > 60 Glucose Level 89 Calcium Level 8.8 Magnesium Level 1.8 Total Bilirubin 0.7 Direct Bilirubin 0.00 Indirect Bilirubin 0.7 Aspartate Amino Transf (AST/SGOT) 169 H Alanine Aminotransferase (ALT/SGPT) 170 H Alkaline Phosphatase 209 H Total Protein 8.0 Albumin 3.6 Globulin 4.40 H Albumin/Globulin Ratio 0.81 Medications Medication Current Medications IV Flush (NS 3 ml) 3 ml PER PROTOCOL IV ; Start 06/17/18 at 15:30 Ondansetron HCl (Zofran Inj) 4 mg Q6H PRN IV NAUSEA AND/OR VOMITING Last administered on 06/21/18 18:52; Admin Dose 4 MG; Start 06/18/18 at 11:00 Acetaminophen (Tylenol Tab) 650 mg Q6H PRN PO MILD PAIN(1-3)OR ELEVATED TEMP Last administered on 07/02/18 05:12; Admin Dose 650 MG; Start 06/19/18 at 17:30 Propranolol HCl (Inderal) 10 mg BID PO Last administered on 07/04/18 09:32; Admin Dose 10 MG; Start 06/22/18 at 09:00 Lorazepam (Ativan) 2 mg Q2H PRN IV Anxiety Last administered on 06/29/18 03:32; Admin Dose 2 MG; Start 06/22/18 at 12:00 Morphine Sulfate (morphine) 2 mg Q4H PRN IV SEVERE PAIN LEVEL 7-10 Last administered on 07/04/18 11:22; Admin Dose 2 MG; Start 06/22/18 at 12:00 Rifaximin (Xifaxan) 550 mg BID PO Last administered on 07/04/18 09:32; Admin Dose 550 MG; Start 06/22/18 at 21:00 Lactulose (Enulose) 30 gm BID PO Last administered on 07/04/18 09:31; Admin Do se 30 GM; Start 06/25/18 at 21:00 Pantoprazole (Protonix Tab) 40 mg BID@18 PO Last administered on 07/04/18 06:17; Admin Dose 40 MG; Start 06/26/18 at 18:00 Thiamine HCl (Vitamin B1) 100 mg DAILY PO Last administered on 07/04/18at 09:32; Admin Dose 100 MG; Start 06/30/18 at 09:00 Folic Acid (Folic Acid) 1 mg DAILY PO Last administered on 07/04/18at 09:31; Admin Dose 1 MG; Start 06/30/18 at 09:00 Acetaminophen/ Hydrocodone Bitart ([place] (5/325)) 1 tab Q6H PRN PO MODERATE PAIN LEVEL 4-6; Start 07/03/18 at 11:00 Tramadol HCl (Ultram) 50 mg Q6H PRN PO MODERATE PAIN LEVEL 4-6; Start 07/04/18 at 11:00 MANNY HURT Jul 04, 2018 15:24
[2018-07-04] MEDS ORDERED: PROP10TA6 PO (15:29)
[2018-07-04] MEDS ORDERED: TRAM50TA2 PO (15:29)
[2018-07-04] MEDS ORDERED: LACT20SO2 PO (15:29)
[2018-07-04] MEDS ORDERED: PANT40TA4 PO (15:29)
[2018-07-04] MEDS ORDERED: RIFA550T4 PO (15:29)
[2018-07-04] MEDS ORDERED: morphine 2 MG INJ IV PRN (16:00)
[2018-07-04] MEDS: HYDROCODONE/APAP (5/325) TAB PO PRN (18:45)
[2018-07-04 20:00] VITALS: BP 111/64; PULSE 78; RESP 18
[2018-07-05 02:00] VITALS: BP 117/64; PULSE 68; RESP 18
[2018-07-05] MEDS: PANTOPRAZOLE (EC) 40 MG TAB PO SCH (05:15)
[2018-07-05 08:08] VITALS: BP 112/56; PULSE 66; RESP 18
[2018-07-05] MEDS: LACTULOSE 30ML CUP PO SCH (08:17)
[2018-07-05] MEDS: THIAMINE 100 MG TAB PO SCH (08:17)
[2018-07-05] MEDS: FOLIC ACID 1 MG TAB PO SCH (08:17)
[2018-07-05] MEDS: RIFAXIMIN 550 MG TAB PO SCH (08:17)
[2018-07-05] MEDS: PROPRANOLOL 10 MG TAB PO SCH (08:17)
[2018-07-05] MEDS: HYDROCODONE/APAP (5/325) TAB PO PRN (08:18)
--- NOTE | 2018-07-05 09:14 | PN ---
Date/Time of Note Date/Time of Note DATE: 07/05/18 TIME: 09:14 Assessment/Plan VTE Prophylaxis Risk score (from Ns)>0 risk: 1 SCD applied (from Ns): Yes Pharmacological prophylaxis: NA/contraindicated Pharm contraindication: thrombocytopenia Lines/Catheters IV Catheter Type (from Nrs): Saline Lock Urinary Cath still in place: No Assessment/Plan Assessment/Plan 1. Acute toxic encephalopathy-resolved - secondary to alcohol intoxication 2. Pancytopenia- improving - Baseline in setting of liver cirrhosis - seen by hematology last year and appears that patient has chronic thrombocytopenia with drop in platelets after every alcohol binge where he gets admitted. - no active bleeding 3. Chronic debility and lower extremity weakness - ambulating around room and unit - PT/OT on board 4. Alcohol abuse - cessation discussed and stressed importance 5. Acute GI bleed- resolved - GI on board and appreciate consultation. EGD showed varices requiring banding 6. Alcoholic liver cirrhosis with h/o grade 3 or 4 esophageal varices - Patient does not appear to be on any medication prior to admission as he is homeless and noncompliant - propranolol on board - PPI bid 7. Acute pancreatitis- resolved 8. Generalized pain - improved with pain medications 9. Disposition - Medically stable for discharge home with outpatient follow up - [facility] plans [facility] and given bus tokens Result Diagram: 07/04/18 0517 07/05/18 0616 Results 24hrs Laboratory Tests Test 07/05/18 06:16 Sodium Level 140 Potassium Level 4.0 Chloride Level 106 Carbon Dioxide Level 24 Anion Gap 10 Blood Urea Nitrogen 9 Creatinine 0.59 L Est Glomerular Filtrat Rate mL/min > 60 Glucose Level 81 Calcium Level 8.6 Total Bilirubin 0.7 Direct Bilirubin 0.00 Indirect Bilirubin 0.7 Aspartate Amino Transf (AST/SGOT) 129 H Alanine Aminotransferase (ALT/SGPT) 152 H Alkaline Phosphatase 231 H Total Protein 7.8 Albumin 3.5 Globulin 4.30 H Albumin/Globulin Ratio 0.81 Subjective 24 Hr Interval Summary Free Text/Dictation Patient denies any acute issues and dressed for discharge. No acute overnight events. Given bus token by and per pt plans to [facility]. Exam/Review of Systems Exam Vitals Vital Signs Date Temp Pulse Resp B/P (MAP) Pulse Ox O2 O2 Flow FiO2 Time Delivery Rate 07/05/18 98.5 66 18 112/56 98 08:08 (74) 07/03/18 Room Air 15:36 Intake and Output 07/04/18 07/04/18 07/05/18 1515:00 23:00 07:00 IntakeIntake Total 1700 ml BalanceBalance 1700 ml Exam General: Patient is laying in bed and answers questions appropriately Neck: Supple, nontender, midline Respiratory: Clear to auscultation bilaterally. no wheezing Cardiovascular: regular rate and rhythm, no obvious murmurs Gastrointestinal: soft, non-tender to palpation, bowel sounds heard. Neurological: Moves all extremities spontaneously Skin: No new skin lesions Results Results 24hrs Laboratory Tests Test 07/05/18 06:16 Sodium Level 140 Potassium Level 4.0 Chloride Level 106 Carbon Dioxide Level 24 Anion Gap 10 Blood Urea Nitrogen 9 Creatinine 0.59 L Est Glomerular Filtrat Rate mL/min > 60 Glucose Level 81 Calcium Level 8.6 Total Bilirubin 0.7 Direct Bilirubin 0.00 Indirect Bilirubin 0.7 Aspartate Amino Transf (AST/SGOT) 129 H Alanine Aminotransferase (ALT/SGPT) 152 H Alkaline Phosphatase 231 H Total Protein 7.8 Albumin 3.5 Globulin 4.30 H Albumin/Globulin Ratio 0.81 Medications Medication Current Medications IV Flush (NS 3 ml) 3 ml PER PROTOCOL IV ; Start 06/17/18 at 15:30 Ondansetron HCl (Zofran Inj) 4 mg Q6H PRN IV NAUSEA AND/OR VOMITING Last administered on 06/21/18at 18:52; Admin Dose 4 MG; Start 06/18/18 at 11:00 Acetaminophen (Tylenol Tab) 650 mg Q6H PRN PO MILD PAIN(1-3)OR ELEVATED TEMP Last administered on 07/02/18at 05:12; Admin Dose 650 MG; Start 06/19/18 at 17:30 Propranolol HCl (Inderal) 10 mg BID PO Last administered on 07/05/18 08:17; Admin Dose 10 MG; Start 06/22/18 at 09:00 Lorazepam (Ativan) 2 mg Q2H PRN IV Anxiety Last administered on 06/29/18at 03:32; Admin Dose 2 MG; Start 06/22/18 at 12:00 Rifaximin (Xifaxan) 550 mg BID PO Last administered on 07/05/18at 08:17; Admin Dose 550 MG; Start 06/22/18 at 21:00 Lactulose (Enulose) 30 gm BID PO Last administered on 07/05/18 08:17; Admin Dose 30 GM; Start 06/25/18 at 21:00 Pantoprazole (Protonix Tab) 40 mg BID@06,18 PO Last administered on 07/05/18 05:15; Admin Dose 40 MG; Start 06/26/18 at 18:00 Thiamine HCl (Vitamin B1) 100 mg DAILY PO Last administered on 07/05/18 08:17; Admin Dose 100 MG; Start 06/30/18 at 09:00 Folic Acid (Folic Acid) 1 mg DAILY PO Last administered on 07/05/18 08:17; Admin Dose 1 MG; Start 06/30/18 at 09:00 Acetaminophen/ Hydrocodone Bitart ([place] (5/325)) 1 tab Q6H PRN PO MODERATE PAIN LEVEL 4-6 Last administered on 07/05/18 08:18; Admin Dose 1 TAB; Start 07/03/18 at 11:00 Tramadol HCl (Ultram) 50 mg Q6H PRN PO MODERATE PAIN LEVEL 4-6 Last administered on 07/04/18 16:42; Admin Dose 50 MG; Start 07/04/18 at 11:00 Morphine Sulfate (morphine) 1 mg Q4H PRN IV SEVERE PAIN LEVEL 7-10; Start 07/04/18 at 16:00 LAVERN NJ MD Jul 05, 2018 09:14
[2018-07-05] MEDS ORDERED: HYDR-3601 PO (11:12)
--- NOTE | 2018-07-05 11:17 | PDOCDIS ---
Discharge Instructions DIAGNOSIS Discharge Diagnosis 1. Acute toxic encephalopathy-resolved 2. Acute alcohol intoxication and withdrawal- resolved 3. Pancytopenia- improving 4. Chronic debility and lower extremity weakness 5. Alcohol abuse 6. Acute GI bleed- resolved 7. Alcoholic liver cirrhosis with h/o grade 3 or 4 esophageal varices 8. Acute pancreatitis- resolved 9. Generalized pain CONDITION [id number] Patient Condition: [id number] Stable HOME CARE INSTRUCTIONS: [id number] Diet Instructions: [id number] Low Fat /Cholesterol FOLLOW UP/APPOINTMENTS Follow-up Plan 1. Follow up with a primary care physician in 1-2 weeks. If you do not have one, you will need to follow up at [facility] for medical care 2. Take all medications as prescribed to help prevent reoccurrence of GI bleeding 3. Take pain medications as needed for pain control. Increase hydration and fiber intake to prevent constipation 4. It is important to stop drinking alcohol since contributing to your medical issues and liver failure 5. You will need to follow up with a GI specialist in 3 months for repeat endoscopy. You will need to go to [facility] for referral 6. If you experience any concerning symptoms, please go to your closest emergency department 1. seguimiento con un mdico de atencin primaria en 1-2 semanas. Si no tiene jennifer, tendr que hacer un seguimiento en [facility] para obtener atencin mdica 2. [place] todos los medicamentos segn lo prescrito para ayudar a prevenir la reaparicin del sangrado gastrointestinal 3. [place] analgsicos segn sea necesario para el control del dolor. [place] la hidratacin y la ingesta de fibras para prevenir el estreimiento 4. es importante dejar de beber alcohol ya que contribuye a [place] problemas mdicos y la insuficiencia heptica 5. tendr que hacer un seguimiento con un especialista en GI en 3 meses para la repeticin de la endoscopia. Usted tendr que ir a la vista de dorsey para la remisin 6. Si experimenta algn sntoma relacionado, por favor vaya a lee Departamento de emergencias LAVERN Roblero MD Jul 05, 2018 11:17
--- NOTE | 2018-07-05 17:15 | DS ---
Date/Time of Note Date/Time of Note DATE: 07/05/18 TIME: 17:15 Discharge Summary Admission/Discharge Info Admit Date/Time Jun 17, 2018 at 15:14 Discharge Date/Time Jul 05, 2018 at 13:30 Discharge Diagnosis 1. Acute toxic encephalopathy-resolved 2. Acute alcohol intoxication and withdrawal- resolved 3. Pancytopenia- improving 4. Chronic debility and lower extremity weakness 5. Alcohol abuse 6. Acute GI bleed- resolved 7. Alcoholic liver cirrhosis with h/o grade 3 or 4 esophageal varices 8. Acute pancreatitis- resolved 9. Generalized pain Patient Condition: Stable Consults GI- Dr Murphy Cardiology- Dr. Garcia Procedures EGD 06/21/1819 Grade 3/4 esophageal varices, post EVL x3 Small fundal gastric varices Portal gastropathy Otherwise normal EGD PROCEDURE: XR Chest. CLINICAL INDICATION: Chest pain TECHNIQUE: Single portable view of the chest was obtained COMPARISON: CR CHEST 01/22/2016 FINDINGS: The heart is enlarged. There is a possible mild right lower lobe infiltrate. There is no pleural effusion or pneumothorax. RPTAT: AA IMPRESSION: Mild Cardiomegaly. Possible mild right lower lobe infiltrate. .Dc Delgado MD, MD Date Time Electronically viewed and signed by .Dc Delgado MD, MD on 06/27/2018 12:49 PROCEDURE: MRI abdomen without contrast and MRCP. CLINICAL INDICATION: Abdominal pain. Gallstones. Alcohol withdrawal. Sclerosis. TECHNIQUE: MRI without contrast using multiple sequences and MRCP was performed on the a high-resolution, high Juliet field strength scanner. No intravenous contrast. 3-D coronal rotating MIP images of the biliary tree were reviewed. COMPARISON: Abdominal ultrasound and CT 06/18/2018 FINDINGS: Limited by motion artifact. Cirrhotic appearance of the liver. Mildly distended gallbladder without stones. No intrahepatic nor extrahepatic biliary dilatation. Common bile duct measures 4 mm. No biliary duct filling defect. No obstructing mass visualized. The pancreatic duct is nondilated. No pleural effusion. No peritoneal free fluid. Enlarged spleen measuring 16.1 cm. Normal T2 signal of the spleen, adrenal glands and kidneys. No hydronephrosis. Pancreas not well visualized. IMPRESSION: No evidence of biliary duct obstruction. Cirrhotic appearing liver. Splenomegaly. RPTAT:AAJJ Physician Annel Date Time Electronically viewed and signed by Karrie Azevedo Physician on 06/18/2018 18:09 PROCEDURE: CT abdomen and pelvis without contrast. CLINICAL INDICATION: Pancreatitis. Abdominal pain. TECHNIQUE: CT scan of the abdomen and pelvis without contrast was performed and is reconstructed at 2.5 mm contiguous axial intervals from the dome of the diaphragm to the inferior pubic rami.. The patient was scanned without intravenous contrast. Sagittal and coronal reformatted images were obtained from the axial source images. The calculated radiation dose measures 667 mGy centimeters. The CTDI measures 11 mGy. Individualized dose optimization technique was used for the performance of this exam. This included 1. Automated exposure control. 2. Adjustment of the mA and / or kV according to the patient's size. 3. Use of iterative reconstructed technique. COMPARISON: None. FINDINGS: The lung bases are clear of any infiltrate or nodule. No effusion is seen. The liver has a nodular contour compatible with cirrhosis. There is coarse diminished attenuation throughout the liver compatible with fatty infiltration. No discrete mass or ductal dilatation is visualized. There is recanalization of the umbilical vein compatible with portal hypertension. Patency of the portal vein is indeterminate on this limited study. There are para esophageal and left upper quadrant varices as well. No gallstones are visualized. No adrenal or pancreatic abnormalities present. the spleen is enlarged measuring 16 cm in length. No focal splenic masses seen. Kidneys are of normal size and contour. No hydronephrosis, calculus or masses seen. Ureters are of normal course and caliber with no stone. No bladder mass or stone is present. Prostate and seminal vesicles are normal. There is no aneurysm. No adenopathy is present. No bowel mass or obstruction is present. The appendix is normal. No phlegmon, ascites or pneumoperitoneum is visualized. The osseous structures are intact. IMPRESSION: No evidence of urolithiasis, obstructive uropathy, diverticulitis or appendicitis. Cirrhosis. Splenomegaly with varices - rule out portal hypertension. .Rikki Steiner MD, MD Date Time Electronically viewed and signed by .Rikki Steiner MD, MD on 06/18/2018 11:58 PROCEDURE: US Abdomen. CLINICAL INDICATION: elevated LFTs TECHNIQUE: Multiple real-time images were acquired of the patient's abdomen and retroperitoneum utilizing a high resolution transducer. COMPARISON: CT 06/18/2018; US ABDOMEN 12/25/2013 FINDINGS: The liver demonstrates markedly heterogeneous and coarse echogenicity. The liver is slightly enlarge in size. The liver measures 17 cm in length. The portal vein is patent with normal direction of flow. No intrahepatic biliary dilatation is seen. No gallstones are identified within the gallbladder. There is no pericholecystic fluid or gallbladder wall thickening. The common bile duct measures 8 mm in maximal dimension. The pancreas is not well seen due to overlying bowel gas. No free fluid is identified. The right kidney is normal in size, and demonstrate normal echogenicity and cortical thickness. The right kidney measures 12.2 cm in long dimension. There is no evidence of hydronephrosis. There are no kidney stones. IMPRESSION: Markedly heterogeneous and coarse echogenicity of the liver. RPTAT: AA .Dc Delgado MD, MD Date Time Electronically viewed and signed by .Dc Delgado MD, MD on 06/18/2018 11:48 PROCEDURE: CT Brain without contrast. CLINICAL INDICATION: Altered mental status. Alcohol abuse. TECHNIQUE: A CT of the brain was performed on a multidetector CT scanner utilizing axial imaging from the skull base through the vertex without IV contrast. Multiplanar reformatted images were made. Images were reviewed on a PACS workstation. The CTDIvol is 40 mGy and the DLP is 634 mGycm. DICOM images are available. One or more of the following dose reduction techniques were utilized: 1.) Automated exposure control 2.) Adjustment of the mA +/- kV according to patient's size 3.) Use of iterative reconstruction technique. COMPARISON: None FINDINGS: There is no intracranial hemorrhage, mass effect, or midline shift. No extra- axial fluid collection is seen. There is mild to moderate diffuse cerebral volume loss with sulcal and ventricular dilatation.. The density of the brain is normal, and the orona white matter differentiation appears well-preserved. The v isualized paranasal sinuses and osseous structures are grossly unremarkable. IMPRESSION: 1. No evidence of acute intracranial pathology. 2. Atrophy. .Rikki Steiner MD, MD Date Time Electronically viewed and signed by .Rikki Steiner MD, MD on 06/17/2018 15:07 PROCEDURE: XR Chest. CLINICAL INDICATION: Abdominal pain TECHNIQUE: Single frontal view of the chest was obtained COMPARISON: None FINDINGS: The heart and mediastinum are within normal limits. The lungs are clear. There is no pleural effusion or pneumothorax. RPTAT: AA IMPRESSION: No acute disease. .Dc Delgado MD, Date Time Electronically viewed and signed by .Dc Delgado MD, MD on 06/17/2018 14:05 Hx of Present Illness Patient is a male with past medical history significant for multiple admissions due to alcohol intoxication, cirrhosis, esophageal varices and chronic lower extremity weakness and debility as well as pancytopenia due to alcoholism who presents to [facility] after being found intoxicated and on the floor by EMS. Patient presents exact the same as his previous admissions, patient is currently very sleepy but arousable. Patient received multiple doses of Ativan due to witnessed symptoms of DT. Patient currently when aroused does not complain of any acute issues, however when you do ask that he has abdominal pain patient states that he does have some very little abdominal pain. Patient is still markedly intoxicated after a considerable amount in the ED and will be admitted for alcohol withdrawal symptoms. Patient currently denies all symptoms however this is difficult to get a true HPI due to patient being very sleepy due to Ativan. Hospital Course Patient was admitted for alcohol withdrawal symptoms and started on ativan around the clock, banana bag daily, and IVF. Patient complained of abdominal pain and was experiencing hematemesis. GI was consulted given patients history of varices and noncompliance with medications. Patient was transfused platelets prior to EGD given thrombocytopenia. EGD was performed with findings of varices requiring clipping. He was started on propranolol. Following procedure, patient was very confused and agitated with signs of DTs. Patient was restrained and given ativan as well as Librium. As condition improved patient was weaned down off ativan and librium and diet was advanced. Patient was experiencing generalized weakness with ambulatory dysfunction. Patients overall condition improved with no further episodes of hematemesis and platelets improved. Placement was unable to be found given patient being noninsured. SW was consulted and patient agreed to placement at the [facility] and was provided prescriptions and bus tokens. Patients presenting symptoms improved significantly and patient was able to ambulate without issues. He was counseled about alcohol cessation and encouraged medication compliance. Patient was discharged in good condition. Home Meds Active Scripts Hydrocodone Bit-Acetaminophen (Hydrocodone Bit-APAP) 5-325MG Tablet, 1 TAB PO Q6H PRN for MODERATE PAIN LEVEL 4-6 for 5 Days, #20 TAB Prov:LAVERN NJ MD 07/05/18 Pantoprazole* (Pantoprazole*) 40 Mg Tablet.dr, 40 MG PO BID@06,18 for 30 Days, #60 TAB 6 Refills Prov:LAVERN NJ MD 07/04/18 Lactulose* (Lactulose*) 20 Gm/30 Ml Solution, 30 GM PO BID for 30 Days, #1 BOTTLE 6 Refills Prov:LAVERN NJ MD 07/04/18 Tramadol HCl (Tramadol HCl) 50 Mg Tablet, 50 MG PO Q6H PRN for MODERATE PAIN LEVEL 4-6 for 5 Days, #20 TAB Prov:LAVERN NJ MD 07/04/18 Rifaximin* (Xifaxan*) 550 Mg Tablet, 550 MG PO BID for 30 Days, #60 TAB 6 Refills Prov:LAVERN NJ MD 07/04/18 Propranolol Hcl* (Propranolol Hcl*) 10 Mg Tablet, 10 MG PO BID for 30 Days, #60 TAB 6 Refills Prov:LAVERN NJ MD 07/04/18 Ondansetron Hcl* (Zofran*) 4 Mg Tablet, 4 MG PO Q6H PRN for NAUSEA AND OR V OMITING, #12 TAB Prov:FARHAN HASSAN MD 05/06/18 Thiamine* (Thiamine*) 100 Mg Tablet, 100 MG PO DAILY, #30 TAB 2 Refills Prov:ELVIS JORGENSEN 02/06/18 Folic Acid* (Folic Acid*) 1 Mg Tablet, 1 MG PO DAILY, #30 TAB 2 Refills Prov:ELVIS JORGENSEN 02/06/18 Discontinued Scripts Pantoprazole* (Protonix*) 40 Mg Tablet.dr, 40 MG PO DAILY, #30 TAB 2 Refills Prov:ELVIS JORGENSEN 02/06/18 Propranolol Hcl* (Propranolol Hcl*) 20 Mg Tablet, 20 MG PO TID, #90 TAB 3 Refills Prov:ELVIS JORGENSEN. 02/06/18 Acetaminophen* (Tylenol*) 325 Mg Tablet, 650 MG PO Q6H PRN for PAIN LEVEL 1-3 OR FEVER, #30 TAB Prov:ELVIS JORGENSEN. 02/06/18 Follow-up Plan 1. Follow up with a primary care physician in 1-2 weeks. If you do not have one, you will need to follow up at [facility] for medical care 2. Take all medications as prescribed to help prevent reoccurrence of GI bleeding 3. Take pain medications as needed for pain control. Increase hydration and fiber intake to prevent constipation 4. It is important to stop drinking alcohol since contributing to your medical issues and liver failure 5. You will need to follow up with a GI specialist in 3 months for repeat endoscopy. You will need to go to [facility] for referral 6. If you experience any concerning symptoms, please go to your closest emergency department 1. seguimiento con un mdico de atencin primaria en 1-2 semanas. Si no tiene jennifer, tendr que hacer un seguimiento en [facility] para obtener atencin mdica 2. [place] todos los medicamentos segn lo prescrito para ayudar a prevenir la reaparicin del sangrado gastrointestinal 3. [place] analgsicos segn sea necesario para el control del dolor. Aumente la hidratacin y la ingesta de fibras para prevenir el estreimiento 4. es importante dejar de beber alcohol ya que contribuye a cydney problemas mdicos y la insuficiencia heptica 5. tendr que hacer un seguimiento con un especialista en GI en 3 meses para la repeticin de la endoscopia. Usted tendr que ir a la vista de dorsey para la remisin 6. Si experimenta algn sntoma relacionado, por favor vaya a lee Departamento de emergencias ms cercano Primary Care Provider Time spent on discharge: > 30 minutes Pending Labs Laboratory Tests Test 07/05/18 06:16 Sodium Level 140 mmol/L (135-144) Potassium Level 4.0 mmol/L (3.5-5.1) Chloride Level 106 mmol/L (97-110) Carbon Dioxide Level 24 mmol/L (21-31) Anion Gap 10 (5-13) Blood Urea Nitrogen 9 mg/dl (7-20) Creatinine 0.59 mg/dl (0.61-1.24) Est Glomerular Filtrat Rate mL/min > 60 mL/min (>60) Glucose Level 81 mg/dl (70-220) Calcium Level 8.6 mg/dl (8.4-10.2) Total Bilirubin 0.7 mg/dl (0.2-1.3) Direct Bilirubin 0.00 mg/dl (0.00-0.20) Indirect Bilirubin 0.7 mg/dl (0-1.1) Aspartate Amino Transf (AST/SGOT) 129 IU/L (15-46) Alanine Aminotransferase (ALT/SGPT) 152 IU/L (13-69) Alkaline Phosphatase 231 IU/L (42-121) Total Protein 7.8 g/dl (6.1-8.1) Albumin 3.5 g/dl (3.3-4.9) Globulin 4.30 g/dl (1.3-3.2) Albumin/Globulin Ratio 0.81 LAVERN NJ MD Jul 05, 2018 17:15
== END 2018-07-05 13:30 | disposition home or self-care (01) | DRG 896 ==
LOC: E/R 03:21 → 6WM 15:14 → 5EC 06-24 19:45 → PP2 06-28 22:08
PROVIDERS: ADMIT Internal Medicine; ATTEND Internal Medicine
PROC: 30233R1 Transfusion of Nonautologous Platelets into Peripheral Vein, Percutaneous Approach (ICD-10-PCS; 2018-06-17)
PROC: 30233K1 Transfusion of Nonautologous Frozen Plasma into Peripheral Vein, Percutaneous Approach (ICD-10-PCS; 2018-06-18)
PROC: 06L38CZ Occlusion of Esophageal Vein with Extraluminal Device, Via Natural or Artificial Opening Endoscopic (ICD-10-PCS; principal; 2018-06-21 16:30)
DX: F10.229 Alcohol dependence with intoxication, unspecified (principal); I85.11 Secondary esophageal varices with bleeding; G92 Toxic encephalopathy; K85.20 Alcohol induced acute pancreatitis without necrosis or infection; D61.818 Other pancytopenia; K76.6 Portal hypertension; K92.0 Hematemesis; I86.4 Gastric varices; F10.231 Alcohol dependence with withdrawal delirium; K70.40 Alcoholic hepatic failure without coma; K70.30 Alcoholic cirrhosis of liver without ascites; K31.89 Other diseases of stomach and duodenum; F17.200 Nicotine dependence, unspecified, uncomplicated; R53.81 Other malaise; R53.1 Weakness; R07.89 Other chest pain; R52 Pain, unspecified; T51.0X1A Toxic effect of ethanol, accidental (unintentional), initial encounter; Y90.8 Blood alcohol level of 240 mg/100 ml or more; Z91.14 Patient's other noncompliance with medication regimen; Z59.0 Homelessness
CPT/HCPCS: 36415; 36430; 70450; 71045; 74176; 74181; 76705; 80048; 80053; 80076; 80307; 82140; 83036; 83690; 83735; 84100; 84484; 85014; 85018; 85025; 85049; 85610; 85670; 85730; 86038; 86255; 86644; 86704; 86709; 86803; 86850; 86900; 86901; 86945; 87340; 93005; 93306; 96374; 96375; 97116; 97161; 97167; 97530; 97535; C9113; J0696; J1200; J1630; J2060; J2270; J2354; J2405; J3411; J3475; J3480; J7030; J7040; P9035; P9059

== ENCOUNTER 2018-10-13 10:27 | Inpatient (IN) | payer MEDICAID ==
[~2018-10-13] VITALS: Ht 167.6 cm; Wt 92.0 kg
[~2018-10-13 10:27] MED LIST changes: -ACET325T33 PO; +HYDR-3601 PO; +LACT20SO2 PO; -PANT40TA3 PO; +PANT40TA4 PO; +PROP10TA6 PO; -PROP20TA4 PO; +RIFA550T4 PO; +TRAM50TA2 PO
[2018-10-13] MEDS ORDERED: SOD CHLORIDE 0.9% 1,000 ML IV STA ×2 (10:54→12:02)
[2018-10-13] MEDS ORDERED: ONDANSETRON 4 MG INJ IV STA (10:54)
--- NOTE | 2018-10-13 10:59 | ERD ---
ER Documentation Chief Complaint Chief Complaint pt is bib [id number] from [facility] with c/o nose bleed x 1 hr, left nares HPI 43-year-old male presents with nosebleed that began this morning. He does not take any blood thinners but states that he feels very tired and weak. No chest pain or shortness of breath. Denies any trauma. ROS All systems reviewed and are negative except as per history of present illness. Allergies Allergies: Coded Allergies: No Known Allergy (Unverified , 10/13/18) FmHx Family History: No diabetes Physical Exam Vitals Vital Signs Date Temp Pulse Resp B/P (MAP) Pulse Ox O2 O2 Flow FiO2 Time Delivery Rate 10/13/18 98.3 74 18 132/76 98 10:31 (94) Physical Exam INITIAL VITAL SIGNS: Reviewed by me GENERAL: Awake, alert and oriented x 4, well appearing, nontoxic, speaking in full sentences. No acute distress HEAD: Atraumatic NECK: Supple. No masses. Full range of motion. No meningismus. No midline tenderness. EYES: EOMI. PERRL. EAR: No tenderness over the mastoids bilaterally. No exudates in the canals. TMs nonerythematous. NOSE: No active bleeding THROAT: No tonilar erythema or edema. No exudates. Uvula midline. No kissing ton sils. RESPIRATORY: Clear to auscultation bilaterally. Symmetric chest wall rise. No wheezing or rales. No accessory muscle use. CV: Regular rate and rhythm. No murmurs, rubs, or gallops. Result Diagram: 10/13/18 1113 10/13/18 1113 Results 24 hrs Laboratory Tests Test 10/13/18 11:13 White Blood Count 1.8 10^3/ul Red Blood Count 3.88 10^6/ul Hemoglobin 8.3 g/dl Hematocrit 28.0 % Mean Corpuscular Volume 72.2 fl Mean Corpuscular Hemoglobin 21.4 pg Mean Corpuscular Hemoglobin Concent 29.6 g/dl Red Cell Distribution Width 19.2 % Platelet Count 16 10^3/UL Mean Platelet Volume fl Immature Granulocytes % 0.600 % Neutrophils % 68.1 % Lymphocytes % 19.9 % Monocytes % 9.1 % Eosinophils % 1.7 % Basophils % 0.6 % Nucleated Red Blood Cells % 0.0 /100WBC Immature Granulocytes # 0.010 10^3/ul Neutrophils # 1.2 10^3/ul Lymphocytes # 0.4 10^3/ul Monocytes # 0.2 10^3/ul Eosinophils # 0.0 10^3/ul Basophils # 0.0 10^3/ul Nucleated Red Blood Cells # 0.0 10^3/ul Prothrombin Time 20.3 Sec Prothrombin Time Ratio 1.6 INR International Normalized Ratio 1.73 Activated Partial Thromboplast Time Pending Sodium Level 143 mmol/L Potassium Level 3.6 mmol/L Chloride Level 106 mmol/L Carbon Dioxide Level 25 mmol/L Anion Gap 12 Blood Urea Nitrogen 9 mg/dl Creatinine 0.55 mg/dl Est Glomerular Filtrat Rate mL/min > 60 mL/min Glucose Level 106 mg/dl Calcium Level 7.5 mg/dl Total Bilirubin 1.6 mg/dl Direct Bilirubin 0.00 mg/dl Indirect Bilirubin 1.6 mg/dl Aspartate Amino Transf (AST/SGOT) 179 IU/L Alanine Aminotransferase (ALT/SGPT) 89 IU/L Alkaline Phosphatase 221 IU/L Total Protein 7.9 g/dl Albumin 3.3 g/dl Globulin 4.60 g/dl Albumin/Globulin Ratio 0.71 Current Medications Medications Dose Sig/Manuel Start Time Status Last (Trade) Ordered Route PRN Stop Time Admin Dose Reason Admin Sodium 1,000 ml @ Q1H STAT 10/13/18 10/13/18 Chloride 1,000 mls/hr IV 10:54 11:22 10/13/18 11:53 Ondansetron 4 mg ONCE STAT 10/13/18 DC 10/13/18 HCl (Zofran IV 10:54 11:22 Inj) 10/13/18 10:56 Procedures/MDM Patient here for nosebleed. Does not appear to be actively bleeding at this time. A clip was placed on his nose. He was given IV fluids and Zofran and CBC chemistry panel and coags were ordered. HARRISON PINK PA-C Oct 13, 2018 10:59
[2018-10-13] MEDS ORDERED: DEXTROSE 5%-0.45% NACL 500 ML BAG IV ONE (12:30)
[2018-10-13] MEDS ORDERED: FOLIC ACID 1 MG TAB PO ONE (12:30)
[2018-10-13] MEDS ORDERED: THIAMINE 100 MG TAB PO ONE (12:30)
[2018-10-13] MEDS ORDERED: DIAZEPAM 5 MG/ML SYG IV ONE (12:30)
--- NOTE | 2018-10-13 13:13 | ERD ---
ER Documentation Chief Complaint Chief Complaint pt is bib RA [id number] from [facility] with c/o nose bleed x 1 hr, left nares HPI During the patient's encounter translation services were utilized Language: [place]an Source: In person 43-year-old male who has a alcohol abuse history. The patient states that he has been binge drinking for 4 days. He presents with mild epistaxis from the left nares for approximate 1 hour. Bleeding is controlled. The patient also describes generalized weakness for approximately 24 to 48 hours. No fevers or chills, no hematemesis, no melena. He denies any recent falls or injury. No significant pain currently. ROS All systems reviewed and are negative except as per history of present illness. Medications Home Meds No Active Prescriptions or Reported Meds Allergies Allergies: Coded Allergies: No Known Allergy (Unverified , 10/13/18) PMhx/Soc Medical and Surgical Hx: pt denies Medical Hx, pt denies Surgical Hx History of Surgery: No Anesthesia Reaction: No Hx Neurological Disorder: No Hx Respiratory Disorders: No Hx Cardiac Disorders: No Hx Psychiatric Problems: No Hx Miscellaneous Medical Probl: No Hx Alcohol Use: Yes Hx Substance Use: No Hx Tobacco Use: No Smoking Status: Never smoker FmHx Family History: No diabetes Physical Exam Vitals Vital Signs Date Temp Pulse Resp B/P (MAP) Pulse Ox O2 O2 Flow FiO2 Time Delivery Rate 10/13/18 94 18 110/69 94 Room Air 13:06 (83) 10/13/18 98.3 74 18 132/76 98 10:31 (94) Physical Exam General: Disheveled, slight tremor Head: Normocephalic, atraumatic. Eyes: Pupils equally reactive, EOM intact ENT: Moist mucous membranes, subacute stigmata of bleeding in the left nares, no active hemorrhage Neck: Supple, no lymphadenopathy Respiratory: Lungs clear bilaterally, no distress Cardiovascular: RRR, no murmurs, rubs, or gallops Abdominal: Soft, non-tender, non-distended, no peritoneal signs : Deferred MSK: No edema, no unilateral swelling, 5/5 strength Neurologic: Alert and oriented, moving all extremities, normal speech, no focal weakness, no cerebellar signs, tremors noted Skin: No rash Psych: Normal mood Result Diagram: 10/13/18 1113 10/13/18 1113 Results 24 hrs Laboratory Tests Test 10/13/18 11:13 10/13/18 12:06 White Blood Count 1.8 10^3/ul Red Blood Count 3.88 10^6/ul Hemoglobin 8.3 g/dl Hematocrit 28.0 % Mean Corpuscular Volume 72.2 fl Mean Corpuscular Hemoglobin 21.4 pg Mean Corpuscular Hemoglobin Concent 29.6 g/dl Red Cell Distribution Width 19.2 % Platelet Count 16 10^3/UL Mean Platelet Volume fl Immature Granulocytes % 0.600 % Neutrophils % 68.1 % Lymphocytes % 19.9 % Monocytes % 9.1 % Eosinophils % 1.7 % Basophils % 0.6 % Nucleated Red Blood Cells % 0.0 /100WBC Immature Granulocytes # 0.010 10^3/ul Neutrophils # 1.2 10^3/ul Lymphocytes # 0.4 10^3/ul Monocytes # 0.2 10^3/ul Eosinophils # 0.0 10^3/ul Basophils # 0.0 10^3/ul Nucleated Red Blood Cells # 0.0 10^3/ul Prothrombin Time 20.3 Sec Prothrombin Time Ratio 1.6 INR International Normalized Ratio 1.73 Activated Partial Thromboplast Time 42.6 Sec Sodium Level 143 mmol/L Potassium Level 3.6 mmol/L Chloride Level 106 mmol/L Carbon Dioxide Level 25 mmol/L Anion Gap 12 Blood Urea Nitrogen 9 mg/dl Creatinine 0.55 mg/dl Est Glomerular Filtrat Rate mL/min > 60 mL/min Glucose Level 106 mg/dl Calcium Level 7.5 mg/dl Total Bilirubin 1.6 mg/dl Direct Bilirubin 0.00 mg/dl Indirect Bilirubin 1.6 mg/dl Aspartate Amino Transf (AST/SGOT) 179 IU/L Alanine Aminotransferase (ALT/SGPT) 89 IU/L Alkaline Phosphatase 221 IU/L Total Protein 7.9 g/dl Albumin 3.3 g/dl Globulin 4.60 g/dl Albumin/Globulin Ratio 0.71 Ethyl Alcohol Level 241.0 mg/dl Current Medications Medications Dose Sig/Manuel Start Time Status Last (Trade) Ordered Route PRN Stop Time Admin Dose Reason Admin Sodium 1,000 ml @ Q1H STAT 10/13/18 DC 10/13/18 Chloride 1,000 mls/hr IV 10:54 11:22 10/13/18 11:53 Ondansetron 4 mg ONCE STAT 10/13/18 DC 10/13/18 HCl (Zofran IV 10:54 11:22 Inj) 10/13/18 10:56 Sodium 1,000 ml @ Q1H STAT 10/13/18 DC 10/13/18 Chloride 1,000 mls/hr IV 12:02 12:18 10/13/18 13:01 Thiamine 100 mg ONCE ONCE 10/13/18 DC 10/13/18 HCl PO 12:30 12:30 (Vitamin B1) 10/13/18 12:31 Folic Acid 1 mg ONCE ONCE 10/13/18 DC 10/13/18 (Folic Acid) PO 12:30 12:30 10/13/18 12:31 500 ml ONCE ONCE 10/13/18 DC 10/13/18 Dextrose/Sodi IV 12:30 12:17 um Chloride 10/13/18 12:31 (D5-1/2ns) Diazepam 10 mg ONCE ONCE 10/13/18 DC 10/13/18 (Valium) IV 12:30 12:17 10/13/18 12:31 Procedures/MDM EKG, MONITORS, & DIAGNOSTIC IMAGING: EKG: I reviewed and interpreted a 12-lead EKG. Rhythm: Normal sinus rhythm ST Changes: No contiguous ST segment elevations T waves: No contiguous T wave inversions Impression: [No evidence of acute cardiac ischemia] Chest x-ray: I reviewed and interpreted a 1 view of the chest Mediastinum: No enlargement Cardiac silhouette: No cardiomegaly Airspace: Clear lung vitale bilaterally without evidence of pneumothorax Bones: No evidence of fracture CT brain: IMPRESSION: There is mild diffuse cortical atrophy with prominence of the subarachnoid spaces along the bifrontal convexities. This is greater than expected for the patient's age. Otherwise, no acute intracranial abnormalities are identified. RPTAT:AAJJ LAB INTERPRETATION: I reviewed the laboratory testing and it shows multiple laboratory abnormalities including a white count of 1.8 hemoglobin of 8.3 and platelets of 16, MCV of 72, transaminitis noted. MEDICAL DECISION MAKING: The patient presents with epistaxis. Based on the patient's appearance basic blood work was initially ordered by the physician's learning support assistant. This shows pancytopenia with significant thrombocytopenia. The patient denies any falls or trauma but given his alcohol abuse history, CT of the brain seems to be appropriate. Patient has clinical signs and symptoms consistent with mild to moderate alcohol withdrawal. IV fluids and benzodiazepine would be appropriate. Multivitamin to be provided. ER COURSE: * Epistaxis is well controlled. No other sources of bleeding. I discussed the case with hematology oncologist, Dr. Cohen. She did state that this could possibly be treated as an outpatient and does not recommend platelet transition at this time. This is likely alcohol related. * However, the patient has persistent evidence of dehydration, alcohol withdrawal that would warrant inpatient hospitalization and closer monitoring. The patient is a fall risk and given low platelets concern for possible intracranial process and risk. For this reason I believe hospitalization is appropriate. CONSULTATION: Hematology oncology as documented above DISPOSITION PLAN: Accepting care team and consultations: I discussed the current laboratory data, diagnostic imaging and emergency care provided. Admitting team: Dr. Ni Admitting team indication: Insurance directed Departure Diagnosis: Primary Impression: Epistaxis Additional Impressions: Pancytopenia Alcohol withdrawal Complication of substance-induced condition: with unspecified complication Qualified Codes: F10.239 - Alcohol dependence with withdrawal, unspecified Alcohol abuse Condition: WILDA Alva MD Oct 13, 2018 13:13
[2018-10-13] MEDS ORDERED: ONDANSETRON 4 MG INJ IV PRN (13:30)
[2018-10-13] MEDS ORDERED: NACL 0.9% 3 ML SYG IV SCH (17:00)
[2018-10-13 17:15] VITALS: Ht 167.6 cm; Wt 92.0 kg
[2018-10-13 17:19] VITALS: BP 124/65; PULSE 102; RESP 18
--- NOTE | 2018-10-13 17:39 | HP ---
Date/Time of Note Date/Time of Note DATE: 10/13/18 TIME: 17:35 Assessment/Plan VTE Prophylaxis SCD applied (from Nsg): Yes Pharmacological prophylaxis: NA/contraindicated Pharm contraindication: low risk/ambulating Lines/Catheters IV Catheter Type (from Nrsg): Saline Lock Assessment/Plan Hospital Course Calm comfortable no distress Alert and oriented Regular rate and rhythm Clear to auscultation bilaterally Abdomen soft and nontender Assessment and plan: This is a 43-year-old male with a history of alcohol use disorder leading to alcoholic cirrhosis complicated by portal hypertension esophageal varices as well as 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 We will hold lactulose for now Alcohol use disorder: -Monitor for withdrawal and give Librium as needed if this develops -Consult on cessation Observe overnight and discharged to home tomorrow if stable Result Diagram: 10/13/18 1113 10/13/18 1113 Results 24hrs Laboratory Tests Test 10/13/18 11:13 10/13/18 12:06 White Blood Count 1.8 L Red Blood Count 3.88 L Hemoglobin 8.3 L Hematocrit 28.0 L Mean Corpuscular Volume 72.2 L Mean Corpuscular Hemoglobin 21.4 L Mean Corpuscular Hemoglobin Concent 29.6 L Red Cell Distribution Width 19.2 H Platelet Count 16 *L Mean Platelet Volume Immature Granulocytes % 0.600 H Neutrophils % 68.1 Segmented Neutrophils % (Manual) 63 Band Neutrophils % (Manual) 5 H Lymphocytes % 19.9 Lymphocytes % (Manual) 24 Monocytes % 9.1 Monocytes % (Manual) 3 Eosinophils % 1.7 Eosinophils % (Manual) 1 Basophils % 0.6 Basophils % (Manual) 2 Myelocytes % (Manual) 2 H Nucleated Red Blood Cells % 0.0 Immature Granulocytes # 0.010 Neutrophils # 1.2 L Neutrophils # (Manual) 1.1 L Band Neutrophils # 0.0 Lymphocytes (Manual) 0.4 L Lymphocytes # 0.4 L Monocytes # 0.2 L Monocytes # (Manual) 0.0 L Eosinophils # 0.0 Basophils # 0.0 Basophils # (Manual) 0.0 Myelocytes # 0.0 Nucleated Red Blood Cells # 0.0 Pathologist Review (Hematology) Platelet Estimate SIG DECREASED Giant Platelets 10 H Polychromasia 3+ Poikilocytosis 1+ Anisocytosis 1+ Prothrombin Time 20.3 H Prothrombin Time Ratio 1.6 INR International Normalized Ratio 1.73 Activated Partial Thromboplast Time 42.6 H Path Consult Signing Pathologist SWAPNA LARSON MD Sodium Level 143 Potassium Level 3.6 Chloride Level 106 Carbon Dioxide Level 25 Anion Gap 12 Blood Urea Nitrogen 9 Creatinine 0.55 L Est Glomerular Filtrat Rate mL/min > 60 Glucose Level 106 Calcium Level 7.5 L Total Bilirubin 1.6 H Direct Bilirubin 0.00 Indirect Bilirubin 1.6 H Aspartate Amino Transf (AST/SGOT) 179 H Alanine Aminotransferase (ALT/SGPT) 89 H Alkaline Phosphatase 221 H Total Protein 7.9 Albumin 3.3 Globulin 4.60 H Albumin/Globulin Ratio 0.71 Ethyl Alcohol Level 241.0 H HPI/ROS Admit Date/Time Admit Date/Time Oct 13, 2018 at 13:21 Hx of Present Illness 43 yo male with alcohol use disorder, cirrhosis with portal hypertension and varices, pancytopenia who presents with epistaxis Patient has been drinking heavily for the last 5 days he says. Last night he developed a nosebleed which continued into today. No history of trauma to the nose. Came to the ED where found to be severely thrombocytopenic. Bleeding was able to be controlled. Seen on the floor after this feels well. Complains only of being quite weak. Counseled on alcohol cessation ROS Constitutional: no complaints, improved Eyes: no complaints ENT: no complaints Respiratory: no complaints Cardiovascular: no complaints Gastrointestinal: no complaints Genitourinary: no complaints Musculoskeletal: no complaints Skin: no complaints Neurologic: no complaints Endocrine: no complaints Lymphatic: no complaints Psychological: no complaints, nl mood/affect Immunologic: no complaints PMH/Family/Social Past Medical History Alcohol use disorder Alcoholic cirrhosis Portal hypertension Esophageal varices Medications Current Medications Ondansetron HCl (Zofran Inj) 4 mg ER BRIDGE PRN IV NAUSEA/VOMITING; Start 10/13/18 at 13:30; Stop 10/14/18 at 13:29 Acetaminophen (Tylenol Tab) 650 mg ER BRIDGE PRN PO .MILD PAIN 1-3 OR TEMP; Start 10/13/18 at 13:30; Stop 10/14/18 at 13:29 IV Flush (NS 3 ml) 3 ml PER PROTOCOL IV ; Start 10/13/18 at 17:00 Acetaminophen (Tylenol Tab) 650 mg Q6H PRN PO .PAIN 1-3 OR TEMP; Start 10/13/18 at 17:00 Coded Allergies: No Known Allergy (Unverified , 01/21/16) Past Surgical History Past Surgical Hx: no surgical history Family History Significant Family History: no pertinent family hx Social History Alcohol Use: none Smoking Status: Never smoker Drug Use: none Exam/Review of Systems Vital Signs Vitals Vital Signs Date Temp Pulse Resp B/P (MAP) Pulse Ox O2 O2 Flow FiO2 Time Delivery Rate 10/13/18 98.5 102 18 124/65 95 17:19 (84) 10/13/18 Room Air 16:25 VALERIE CHAPPELL MD Oct 13, 2018 17:39
[2018-10-13] MEDS: ACETAMINOPHEN 325 MG TAB PO PRN ×2 (18:13→20:13)
[2018-10-13] MEDS: PROPRANOLOL 10 MG TAB PO SCH (20:12)
[2018-10-13] MEDS: RIFAXIMIN 550 MG TAB PO SCH (20:12)
[2018-10-13 20:31] VITALS: BP 122/65; PULSE 107; RESP 18
[2018-10-13] MEDS: CHLORDIAZEPOXIDE 25 MG CAP PO PRN (22:16)
[2018-10-13] MEDS: ONDANSETRON 4 MG INJ IV PRN (22:17)
[2018-10-13 23:59] VITALS: BP 109/58; PULSE 87; RESP 18
[2018-10-14 04:05] VITALS: BP 115/67; PULSE 82; RESP 16
[2018-10-14 07:28] VITALS: BP 136/80; PULSE 90; RESP 18
[2018-10-14] MEDS: RIFAXIMIN 550 MG TAB PO SCH ×2 (09:06→20:39)
[2018-10-14] MEDS: CHLORDIAZEPOXIDE 25 MG CAP PO PRN ×3 (09:07→20:39)
[2018-10-14] MEDS: PROPRANOLOL 10 MG TAB PO SCH ×2 (09:08→20:40)
[2018-10-14 12:13] VITALS: BP 129/73; PULSE 90; RESP 16
[2018-10-14] MEDS: ACETAMINOPHEN 325 MG TAB PO PRN ×2 (13:25→23:15)
--- NOTE | 2018-10-14 14:35 | PN ---
Date/Time of Note Date/Time of Note DATE: 10/14/18 TIME: 14:34 Assessment/Plan VTE Prophylaxis Risk score (from Ns)>0 risk: 1 SCD applied (from Ns): Yes Pharmacological prophylaxis: heparin Lines/Catheters IV [facility]from [facility] Saline Lock Assessment/Plan Hospital Course Calm comfortable no distress Alert and oriented Regular rate and rhythm Clear to auscultation bilaterally Abdomen soft and nontender Assessment and plan: This is a 43-year-old male with a history of alcohol use disorder leading to alcoholic cirrhosis complicated by portal hypertension esophageal varices as well as 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 We will hold lactulose for now Alcohol use disorder: -Monitor for withdrawal and give Librium as needed if this develops -Consult on cessation Result Diagram: 10/14/18 0619 10/14/18 0619 Results 24hrs Laboratory Tests Test 10/13/18 18:01 10/14/18 06:19 White Blood Count 1.4 #L 1.7 #L Red Blood Count 3.49 L 3.46 L Hemoglobin 7.6 L 7.7 L Hematocrit 25.4 L 25.5 L Mean Corpuscular Volume 72.8 L 73.7 L Mean Corpuscular Hemoglobin 21.8 L 22.3 L Mean Corpuscular Hemoglobin Concent 29.9 L 30.2 L Red Cell Distribution Width 19.1 H 18.8 H Platelet Count 13 *L 25 #*L Mean Platelet Volume Immature Granulocytes % 0.000 L 0.600 H Neutrophils % 54.4 Segmented Neutrophils % (Manual) 74 Lymphocytes % 29.2 Lymphocytes % (Manual) 18 Monocytes % 11.1 H Monocytes % (Manual) 3 Eosinophils % 4.1 Eosinophils % (Manual) 5 Basophils % 0.6 Nucleated Red Blood Cells % 0.0 0.0 Immature Granulocytes # 0.000 0.010 Neutrophils # 0.9 L Lymphocytes (Manual) 0.2 L Lymphocytes # 0.5 L Monocytes # 0.2 L Monocytes # (Manual) 0.0 L Eosinophils # 0.1 Basophils # 0.0 Nucleated Red Blood Cells # 0.0 Giant Platelets 5 H Polychromasia 2+ Poikilocytosis 1+ Anisocytosis 1+ Microcytosis 1+ Sodium Level 142 Potassium Level 3.7 Chloride Level 109 Carbon Dioxide Level 24 Anion Gap 9 Blood Urea Nitrogen 10 Creatinine 0.53 L Est Glomerular Filtrat Rate mL/min > 60 Glucose Level 86 Hemoglobin A1c 5.0 Calcium Level 7.8 L Total Bilirubin 1.9 H Direct Bilirubin 0.00 Indirect Bilirubin 1.9 H Aspartate Amino Transf (AST/SGOT) 141 H Alanine Aminotransferase (ALT/SGPT) 74 H Alkaline Phosphatase 184 H Total Protein 6.8 # Albumin 2.9 L Globulin 3.90 H Albumin/Globulin Ratio 0.74 Subjective 24 Hr Interval Summary Free Text/Dictation Mild withdrawal symptoms No more bleeding Exam/Review of Systems Exam Vitals Vital Signs Date Temp Pulse Resp B/P (MAP) Pulse Ox O2 O2 Flow FiO2 Time Delivery Rate 10/14/18 98.7 90 16 129/73 98 Room Air 12:13 (91) Results Results 24hrs Laboratory Tests Test 10/13/18 18:01 10/14/18 06:19 White Blood Count 1.4 #L 1.7 #L Red Blood Count 3.49 L 3.46 L Hemoglobin 7.6 L 7.7 L Hematocrit 25.4 L 25.5 L Mean Corpuscular Volume 72.8 L 73.7 L Mean Corpuscular Hemoglobin 21.8 L 22.3 L Mean Corpuscular Hemoglobin Concent 29.9 L 30.2 L Red Cell Distribution Width 19.1 H 18.8 H Platelet Count 13 *L 25 #*L Mean Platelet Volume Immature Granulocytes % 0.000 L 0.600 H Neutrophils % 54.4 Segmented Neutrophils % (Manual) 74 Lymphocytes % 29.2 Lymphocytes % (Manual) 18 Monocytes % 11.1 H Monocytes % (Manual) 3 Eosinophils % 4.1 Eosinophils % (Manual) 5 Basophils % 0.6 Nucleated Red Blood Cells % 0.0 0.0 Immature Granulocytes # 0.000 0.010 Neutrophils # 0.9 L Lymphocytes (Manual) 0.2 L Lymphocytes # 0.5 L Monocytes # 0.2 L Monocytes # (Manual) 0.0 L Eosinophils # 0.1 Basophils # 0.0 Nucleated Red Blood Cells # 0.0 Giant Platelets 5 H Polychromasia 2+ Poikilocytosis 1+ Anisocytosis 1+ Microcytosis 1+ Sodium Level 142 Potassium Level 3.7 Chloride Level 109 Carbon Dioxide Level 24 Anion Gap 9 Blood Urea Nitrogen 10 Creatinine 0.53 L Est Glomerular Filtrat Rate mL/min > 60 Glucose Level 86 Hemoglobin A1c 5.0 Calcium Level 7.8 L Total Bilirubin 1.9 H Direct Bilirubin 0.00 Indirect Bilirubin 1.9 H Aspartate Amino Transf (AST/SGOT) 141 H Alanine Aminotransferase (ALT/SGPT) 74 H Alkaline Phosphatase 184 H Total Protein 6.8 # Albumin 2.9 L Globulin 3.90 H Albumin/Globulin Ratio 0.74 Medications Medication Current Medications IV Flush (NS 3 ml) 3 ml PER PROTOCOL IV ; Start 10/13/18 at 17:00 Acetaminophen (Tylenol Tab) 650 mg Q6H PRN PO .PAIN 1-3 OR TEMP Last administered on 10/13/18 20:13; Admin Dose 650 MG; Start 10/13/18 at 17:00 Propranolol HCl (Inderal) 10 mg BID PO Last administered on 10/14/18 09:08; Admin Dose 10 MG; Start 10/13/18 at 21:00 Rifaximin (Xifaxan) 550 mg BID PO Last administered on 10/14/18 09:06; Admin Dose 550 MG; Start 10/13/18 at 21:00 Chlordiazepoxide (Librium) 50 mg Q4H PRN PO withdrawals Last administered on 10/14/18 13:25; Admin Dose 50 MG; Start 10/13/18 at 18:00 Ondansetron HCl (Zofran Inj) 4 mg Q4H PRN IV NAUSEA AND/OR VOMITING Last administered on 10/13/18 22:17; Admin Dose 4 MG; Start 10/13/18 at 22:00 VALERIE CHAPPELL MD Oct 14, 2018 14:35
[2018-10-14 15:12] VITALS: BP 116/62; PULSE 83; RESP 16
[2018-10-14 20:00] VITALS: BP 119/63; PULSE 80; RESP 18
[2018-10-14] MEDS: ONDANSETRON 4 MG INJ IV PRN (20:39)
[2018-10-15] VITALS: BP 111/58; PULSE 87; RESP 18
[2018-10-15 04:00] VITALS: BP 95/56; PULSE 78; RESP 18
[2018-10-15 07:25] VITALS: BP 104/57; PULSE 80; RESP 18
[2018-10-15] MEDS: RIFAXIMIN 550 MG TAB PO SCH (09:15)
[2018-10-15] MEDS: PROPRANOLOL 10 MG TAB PO SCH (09:16)
[2018-10-15] MEDS: ONDANSETRON 4 MG INJ IV PRN (10:11)
[2018-10-15 11:22] VITALS: BP 110/58; PULSE 77; RESP 18
--- NOTE | 2018-10-15 15:10 | DS ---
Date/Time of Note Date/Time of Note DATE: 10/15/18 TIME: 15:09 Discharge Summary Admission/Discharge Info Admit Date/Time Oct 13, 2018 at 13:21 Discharge Date/Time Discharge Diagnosis Epistaxis Cirrohsis Patient Condition: Stable Hx of Present Illness 43 yo male with alcohol use disorder, cirrhosis with portal hypertension and varices, pancytopenia who presents with epistaxis Patient has been drinking heavily for the last 5 days he says. Last night he developed a nosebleed which continued into today. No history of trauma to the nose. Came to the ED where found to be severely thrombocytopenic. Bleeding was able to be controlled. Seen on the floor after this feels well. Complains only of being quite weak. 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 His epistaxis resolved spontaneously without need for intervention or blood products. He had symptoms of mild alcohol withdrawal treated with librium. He was counseled on etoh cessation. He was continued on rifaxamin and propranolol. He will be discharged to self care as an outpatient Home Meds Active Scripts Hydrocodone Bit-Acetaminophen (Hydrocodone Bit-APAP) 5-325MG Tablet, 1 TAB PO Q6H PRN for MODERATE PAIN LEVEL 4-6 for 5 Days, #20 TAB Prov:LAVERN NJ MD 07/05/18 Pantoprazole* (Pantoprazole*) 40 Mg Tablet.dr, 40 MG PO BID@06,18 for 30 Days, #60 TAB 6 Refills Prov:LAVERN NJ MD 07/04/18 Lactulose* (Lactulose*) 20 Gm/30 Ml Solution, 30 GM PO BID for 30 Days, #1 BOTTLE 6 Refills Prov:LAVERN NJ MD 07/04/18 Tramadol HCl (Tramadol HCl) 50 Mg Tablet, 50 MG PO Q6H PRN for MODERATE PAIN LEVEL 4-6 for 5 Days, #20 TAB Prov:LAVERN NJ MD 07/04/18 Rifaximin* (Xifaxan*) 550 Mg Tablet, 550 MG PO BID for 30 Days, #60 TAB 6 Refills Prov:LAVERN NJ MD 07/04/18 Propranolol Hcl* (Propranolol Hcl*) 10 Mg Tablet, 10 MG PO BID for 30 Days, #60 TAB 6 Refills Prov:LAVERN NJ MD 07/04/18 Ondansetron Hcl* (Zofran*) 4 Mg Tablet, 4 MG PO Q6H PRN for NAUSEA AND OR VOMITING, #12 TAB Prov:FARHAN HASSAN MD 05/06/18 Thiamine* (Thiamine*) 100 Mg Tablet, 100 MG PO DAILY, #30 TAB 2 Refills Prov:ELVIS JORGENSEN 02/06/18 Folic Acid* (Folic Acid*) 1 Mg Tablet, 1 MG PO DAILY, #30 TAB 2 Refills Prov:ELVIS JORGENSEN 02/06/18 Primary Care Provider VALERIE CHAPPELL MD Oct 15, 2018 15:10
--- NOTE | 2018-10-15 15:12 | PDOCDIS ---
Discharge Instructions DIAGNOSIS Discharge Diagnosis Epistaxis Cirrohsis CONDITION [id number] Patient Condition: [id number] Stable FOLLOW UP/APPOINTMENTS Follow-up Plan Continue your medications as prescribed Stop drinking alcohol Follow up with your primary doctor VALERIE CHAPPELL MD Oct 15, 2018 15:12
[2018-10-15 16:19] VITALS: BP 116/66; PULSE 79; RESP 16
[2018-10-15 20:00] VITALS: BP 129/67; PULSE 85; RESP 18
== END 2018-10-15 19:05 | disposition home or self-care (01) | DRG 151 ==
LOC: FTE 10:27 → MERGE 10:27 → TEL 13:21 → SUATTDRO 16:37
PROVIDERS: ADMIT Internal Medicine; ATTEND Internal Medicine
DX: R04.0 Epistaxis (principal); D61.818 Other pancytopenia; K76.6 Portal hypertension; I85.10 Secondary esophageal varices without bleeding; D62 Acute posthemorrhagic anemia; F10.239 Alcohol dependence with withdrawal, unspecified; D69.6 Thrombocytopenia, unspecified; K70.30 Alcoholic cirrhosis of liver without ascites; Y90.8 Blood alcohol level of 240 mg/100 ml or more; D73.1 Hypersplenism
CPT/HCPCS: 70450; 71045; 80053; 80307; 83036; 85025; 85610; 85730; 93005; 96374; 96375; J2405; J3360; J7030